=== PATIENT | male | born 1955 | race Caucasian/White ===

== ENCOUNTER 2018-11-20 16:45 | Inpatient (IN) | payer OTHER ==
[~2018-11-20] VITALS: Ht 167.6 cm; Wt 59.0 kg
[2018-11-20 16:54] VITALS: BP 210/115
[2018-11-20] MEDS ORDERED: Solu-MEDROL 125mg Inj IVP ONE (17:00)
[2018-11-20] MEDS: Albuterol ud Inhalation HHN SCH ×3 (17:09→17:35)
[2018-11-20] MEDS: Ipratropium 0.02% Inh Soln 2.5ml UD HHN SCH ×3 (17:09→17:35)
[2018-11-20 17:35] LABS: HEMATOCRIT 47.8 % (42.0-52.0); HEMOGLOBIN 16.1 G/DL (14.2-18.0); MEAN CORPUSCULAR VOLUME 105 FL (80-99); PLATELET COUNT 438 K/UL (150-450); RED BLOOD COUNT 4.58 M/UL (4.70-6.10); RED CELL DISTRIBUTION WIDTH 10.7 % (11.6-14.8); WHITE BLOOD COUNT 18.9 K/UL (4.8-10.8)
[2018-11-20 17:38] LABS: LYMPHOCYTES % (AUTO) 13.6 % (20.0-45.0); MONOCYTES % (AUTO) 7.6 % (1.0-10.0); NEUTROPHILS % (AUTO) 75.2 % (45.0-75.0)
[2018-11-20 17:39] LABS: EOSINOPHILS % (AUTO) 1.6 % (0.0-3.0)
--- NOTE | 2018-11-20 17:44 | NUR ---
ED Nurse Note: patient biba from home c/o SOB, pulse ox on room air was 90%, with albuterol tx, patient was still sob, hx of asthma /copd BP elevation noted
[2018-11-20 17:45] LABS: ANION GAP 13 mmol/L (5-15); BLOOD UREA NITROGEN 21 mg/dL (7-18); CALCIUM 9.9 MG/DL (8.5-10.1); CARBON DIOXIDE 26 MMOL/L (21-32); CHLORIDE 100 MMOL/L (98-107); CREATININE 0.9 MG/DL (0.55-1.30); POTASSIUM 3.9 MMOL/L (3.5-5.1); SODIUM 139 MMOL/L (136-145)
--- NOTE | 2018-11-20 17:48 | Diagnostic Imaging Report ---
Indication: Cough Technique: One view of the chest Comparison: none Findings: There is a pneumothorax at the left lung base, 15-20% volume.. There is a 3.7 cm mass in the left midlung. The the right lung is hyperinflated. Pleural and parenchymal scarring is seen at both lung apices. There is upward traction of the pulmonary galina bilaterally. The heart size is normal.. Impression: Left basilar pneumothorax, 15-20% volume. Dr. Aaron notified of this critical value finding at the time of interpretation Left midlung mass, neoplasm is suspected COPD Biapical pleural and parenchymal scarring
[2018-11-20 17:50] LABS: ALANINE AMINOTRANSFERASE 28 U/L (12-78); ALBUMIN 4.2 G/DL (3.4-5.0); ALKALINE PHOSPHATASE 98 U/L (46-116); ASPARTATE AMINO TRANSFERASE 18 U/L (15-37); BILIRUBIN,TOTAL 0.1 MG/DL (0.2-1.0)
[2018-11-20] MEDS ORDERED: Norco 5mg/325mg tab ORAL ONE (19:00)
[2018-11-20] MEDS ORDERED: cloNIDine 0.2mg Tab ORAL ONE (19:00)
--- NOTE | 2018-11-20 19:10 | NUR ---
ED Nurse Note: Received Pt and report from day shift. Knowing Pt will admit to Tele. Will prepare the admit papers.
--- NOTE | 2018-11-20 19:13 | NUR ---
ED Nurse Note: urine sent down for ua
[2018-11-20 19:18] LABS: APPEARANCE,URINE CLOUDY; BILIRUBIN, URINE NEGATIVE (NEGATIVE); GLUCOSE, URINE (UA) NEGATIVE (NEGATIVE); KETONES,URINE NEGATIVE (NEGATIVE); LEUKOCYTE ESTERASE ,URINE NEGATIVE (NEGATIVE); NITRITE,URINE NEGATIVE (NEGATIVE); PH,URINE 5 (4.5-8.0); PROTEIN,URINE 3+ (NEGATIVE); UROBILINOGEN,URINE NORMAL MG/DL (0.0-1.0)
[2018-11-20 19:19] LABS: COLOR,URINE YELLOW
--- NOTE | 2018-11-20 19:19 | NUR ---
HAND-OFF: Report given to HUI Daniels.
[2018-11-20 20:30] VITALS: BP 181/111
--- NOTE | 2018-11-20 20:32 | Emergency Room Report ---
History of Present Illness General Chief Complaint: Dyspnea/Respdistress Source: Patient, Family Member, EMS Present Illness HPI Patient is a chronic smoker presents emergency department today complaining acute onset of shortness of breath. Patient states that he developed acute onset shortness breath over last couple days. This occurred after walking up a lot of stairs. Patient complains some mild chest discomfort and left sinus wall. He denies any fever. Denies nausea or vomiting. Symptoms noted to be severe. No other modifying factors. No other associated signs and symptoms. No other complaints were noted. Allergies: Coded Allergies: No Known Allergies (Unverified , 11/20/18) Patient History Past Medical History: asthma Past Surgical History: none Pertinent Family History: none Social History: Reports: smoking Reviewed Nursing Documentation: PMH: Agreed; PSxH: Agreed Nursing Documentation-PMH Hx Asthma: Yes Review of Systems All Other Systems: negative except mentioned in HPI Physical Exam Vital Signs Date Time Temp Pulse Resp B/P (MAP) Pulse Ox O2 Delivery O2 Flow Rate FiO2 11/20/18 16:44 97.5 130 30 210/115 99 Simple Mask 6.0 11/20/18 17:06 21 Sp02 EP Interpretation: reviewed, normal General Appearance: alert, moderate distress Head: atraumatic Eyes: bilateral eye normal inspection ENT: normal ENT inspection, hearing grossly normal, normal voice Neck: normal inspection, full range of motion, supple, no bony tend Respiratory: no retraction, respiratory distress, decreased breath sounds, accessory muscle use Cardiovascular #1: no edema, tachycardia Gastrointestinal: normal inspection, normal bowel sounds, non tender, soft, no guarding, no hernia Genitourinary: no CVA tenderness Musculoskeletal: normal inspection, back normal, normal range of motion Neurologic: normal inspection, alert, responsive, speech normal Psychiatric: normal inspection, judgement/insight normal, anxious Skin: normal inspection, normal color, no rash Procedures Critical Care Time Critical Care Time Patient had a critical medical condition which untreated could potentially result in life or limb threatening injury. Total critical care time excluding procedures was approximately 45 minutes. Medical Decision Making Diagnostic Impression: Primary Impression: Respiratory distress Additional Impressions: Pneumothorax Lung mass COPD (chronic obstructive pulmonary disease) ER Course Patient presents emergency department today complaining of shortness of breath. Differential diagnoses include acute pneumonia, CHF, acute coronary syndrome, pneumothorax, asthma, COPD flare, just to name a few.Given the severity of the patient's presentation I felt this is a highly complex patient. This patient required extensive workup. Patient presented with severe shortness of breath it was given albuterol Atrovent with significant improvement symptoms. Patient was also given Solu-Medrol. Patient had chest x-ray obtained chest ray shows evidence of pneumothorax. However the pneumothorax appears to be left side and more towards diaphragm. There is also an associated mass. This suggests that this is atypical pneumothorax. The pneumothorax does not show any evidence of tension pneumothorax and given the patient has had symptoms for a couple days could be a day or 2 old. Therefore I elected not to place a chest tube at this time. Instead to monitor the patient. Chest x-ray obtained a few hours later showed pneumothorax to be stable. Therefore I felt the patient be admitted to the hospital further treatment. Case was discussed in detail with Dr. Berman and Dr. Bullock. Patient be admitted to telemetry for further treatment. Labs Test 11/20/18 17:05 11/20/18 19:00 White Blood Count 18.9 K/UL (4.8-10.8) Red Blood Count 4.58 M/UL (4.70-6.10) Hemoglobin 16.1 G/DL (14.2-18.0) Hematocrit 47.8 % (42.0-52.0) Mean Corpuscular Volume 105 FL (80-99) Mean Corpuscular Hemoglobin 35.2 PG (27.0-31.0) Mean Corpuscular Hemoglobin Concent 33.7 G/DL (32.0-36.0) Red Cell Distribution Width 10.7 % (11.6-14.8) Platelet Count 438 K/UL (150-450) Mean Platelet Volume 5.3 FL (6.5-10.1) Neutrophils (%) (Auto) 75.2 % (45.0-75.0) Lymphocytes (%) (Auto) 13.6 % (20.0-45.0) Monocytes (%) (Auto) 7.6 % (1.0-10.0) Eosinophils (%) (Auto) 1.6 % (0.0-3.0) Basophils (%) (Auto) 2.0 % (0.0-2.0) Sodium Level 139 MMOL/L (136-145) Potassium Level 3.9 MMOL/L (3.5-5.1) Chloride Level 100 MMOL/L (98-107) Carbon Dioxide Level 26 MMOL/L (21-32) Anion Gap 13 mmol/L (5-15) Blood Urea Nitrogen 21 mg/dL (7-18) Creatinine 0.9 MG/DL (0.55-1.30) Estimat Glomerular Filtration Rate > 60 mL/min (>60) Glucose Level 139 MG/DL (74-106) Calcium Level 9.9 MG/DL (8.5-10.1) Total Bilirubin 0.1 MG/DL (0.2-1.0) Aspartate Amino Transf (AST/SGOT) 18 U/L (15-37) Alanine Aminotransferase (ALT/SGPT) 28 U/L (12-78) Alkaline Phosphatase 98 U/L (46-116) Troponin I 0.000 ng/mL (0.000-0.056) Total Protein 8.5 G/DL (6.4-8.2) Albumin 4.2 G/DL (3.4-5.0) Globulin 4.3 g/dL Albumin/Globulin Ratio 1.0 (1.0-2.7) Urine Color Yellow Urine Appearance Cloudy Urine pH 5 (4.5-8.0) Urine Specific [place] 1.025 (1.005-1.035) Urine Protein 3+ (NEGATIVE) Urine Glucose (UA) Negative (NEGATIVE) Urine Ketones Negative (NEGATIVE) Urine Blood 3+ (NEGATIVE) Urine Nitrite Negative (NEGATIVE) Urine Bilirubin Negative (NEGATIVE) Urine Urobilinogen Normal MG/DL (0.0-1.0) Urine Leukocyte Esterase Negative (NEGATIVE) Urine RBC Tntc /HPF (0 - 0) Urine WBC 5-10 /HPF (0 - 0) Urine Squamous Epithelial Cells None /LPF (NONE/OCC) Urine Bacteria Few /HPF (NONE) Urine Sperm Moderate /LPF (NONE) EKG Diagnostic Results Rate: tachycardiac Rhythm: NSR ST Segments: no acute changes Rhythm Strip Diag. Results EP Interpretation: yes Rate: 146 Rhythm: NSR, no PVC's, no ectopy Chest X-Ray Diagnostic Results Chest X-Ray Diagnostic Results : Chest X-Ray Ordered: Yes # of Views/Limited/Complete: 1 View Indication: Shortness of Breath EP Interpretation: No Impression: Other - Pneumothorax, lung mass Last Vital Signs Date Time Temp Pulse Resp B/P (MAP) Pulse Ox O2 Delivery O2 Flow Rate FiO2 11/20/18 19:07 181/111 11/20/18 18:57 142 32 Room Air 6.0 21 11/20/18 17:56 98 11/20/18 16:54 97.5 Status: improved Disposition: ADMITTED INPATIENT Condition: Serious Referrals: [facility],REFERRING (PCP) Yuan Aaron MD Nov 20, 2018 20:32
[2018-11-20] MEDS ORDERED: Morphine Sulfate 4mg/ml Inj (IV/IM USE ONLY) IVP PRN (21:00)
[2018-11-20] MEDS ORDERED: Nitroglycerin Subl 0.4mg tab SL PRN (21:00)
[2018-11-20] MEDS ORDERED: LORazepam Inj 2mg/ml 1ml IV PRN (21:00)
--- NOTE | 2018-11-20 21:05 | NUR ---
ED Nurse Note: Admit Pt to Tele room 209-1. Pt is AO x 4times, VSS, on room air no distress. Belongings and skin check with floor RN. Report given to HUI Alcocer.
--- NOTE | 2018-11-20 21:28 | NUR ---
NURSE NOTES: NEW ADMISSION. recvd pt from ER at 21:15. Adm Dr: Kobe, Adm Dx: Resp Distress, COPD. Pt was placed on cardiac monitoring upon arrival, NC placed on pt @ 2L. Admitting orders entered by Dr Berman. Pt is AOX4, NC @ 2L with no sign of sob or resp distress. Full physical assessment completed. Skin is intact. Pt ambulates to restroom, steady gait. Left AC 20g is c/d/i and patent. Oriented pt to room. BP is trending down . Will continue with plan of care.
[2018-11-20 21:36] VITALS: BP 155/101
[2018-11-20] MEDS ORDERED: Piperacillin/Tazobactam 2.25 GM in D5W 55 ML IV SCH (22:00)
[2018-11-20] MEDS: Zosyn 3.375gm q8h **Extended infusion IVPB SCH ×2 (23:10)
[2018-11-20] MEDS: Theophylline ER 100mg ORAL SCH (23:10)
[2018-11-20] MEDS: Heparin 5000 units/ml inj SUBQ SCH (23:12)
[2018-11-20] MEDS: Albuterol/Ipratropium 3ml neb HHN PRN (23:35)
[2018-11-21] VITALS: BP 135/90
[2018-11-21] MEDS: Solu-MEDROL 125mg Inj IV SCH ×4 (00:33→18:07)
[2018-11-21] MEDS: Ketorolac 30mg Inj IV PRN ×2 (03:47→11:45)
[2018-11-21 04:58] VITALS: BP 139/80
[2018-11-21] MEDS: Zosyn 3.375gm q8h **Extended infusion IVPB SCH ×6 (05:38→21:45)
[2018-11-21 08:00] VITALS: BP 124/94
--- NOTE | 2018-11-21 08:17 | NUR ---
NURSE NOTES: Pt in bed in low position, HOB in high fowlers, IV running abx, IV asymptomatic, pt denies pain, pt requesting breathing tx RT called Jayce, breakfast at bedside, pt ate all of breakfast, pt Ox4, calm and cooperative, pt ambulated to restroom with steady gait, pt makes needs known, no s/s of distress or sob noted. call light at bedside.
[2018-11-21] MEDS: Theophylline ER 100mg ORAL SCH ×2 (09:40→21:46)
[2018-11-21] MEDS: Heparin 5000 units/ml inj SUBQ SCH ×2 (09:42→21:00)
--- NOTE | 2018-11-21 11:01 | NUR ---
NO INSURANCE INFORMATION ON THE BAR UNABLE TO FAX CLINICALS AND REVIEWS
--- NOTE | 2018-11-21 11:04 | NUR ---
CASE MANAGEMENT:REVIEW 63 YR OLD MALE BIBA FROM HOME CC; SOB SI: RESP DISTRESS. COPD. PNEUMOTHORAX 97.5 130 30 210/115 90% ON RA WBC+18.9 IS: PLACED ON MASK 6L/O2 DUONEB HHN Q15 MIN IV SOLUMEDROL CXR BLOOD CX : TO TELEMETRY UNIT INTERQUAL CRITERIA MET
[2018-11-21] MEDS: Promethazine/Codeine 5ml UD ORAL PRN (11:44)
--- NOTE | 2018-11-21 11:45 | Diagnostic Imaging Report ---
Indication: Cough Comparison: 11/20/2018 A single view chest radiograph was obtained. Findings: Rounded density in the left midlung noted suspicious for neoplasm. Left basilar pneumothorax appears slightly improved since the previous examination performed only 2 hours earlier. The lungs are hyperexpanded. Bones are osteopenic. There is scarring at both lung apices. IMPRESSION: Left basilar pneumothorax with some interval improvement. Follow-up is recommended. Other findings unchanged
--- NOTE | 2018-11-21 11:57 | Consultation ---
History of Present Illness General Date patient seen: Nov 21, 2018 Chief Complaint: Dyspnea/Respdistress Present Illness Allergies: Coded Allergies: No Known Allergies (Unverified , 11/20/18) Patient History Healthcare decision maker Resuscitation status Full Code Advanced Directive on File No Physical Exam General Appearance: cachetic Lines, tubes and drains: peripheral HEENT: normocephalic, atraumatic Neck: non-tender, normal alignment Respiratory/Chest: chest wall non-tender, lungs clear Breasts: no masses Cardiovascular/Chest: normal peripheral pulses Abdomen: normal bowel sounds Last 24 Hour Vital Signs Date Time Temp Pulse Resp B/P (MAP) Pulse Ox O2 Delivery O2 Flow Rate FiO2 11/21/18 11:09 Nasal Cannula 2.0 28 11/21/18 08:20 Nasal Cannula 2.0 11/21/18 08:00 97.3 119 20 124/94 (104) 91 11/21/18 07:43 127 11/21/18 04:58 97.7 100 19 139/80 (99) 92 11/21/18 04:17 96.6 11/21/18 04:00 112 11/21/18 00:00 114 11/21/18 00:00 96.6 103 19 135/90 (105) 95 11/20/18 23:39 114 24 97 Nasal Cannula 2.0 28 11/20/18 23:36 97 Nasal Cannula 2.0 28 11/20/18 23:30 118 24 97 Nasal Cannula 2.0 28 11/20/18 21:36 97.4 122 19 155/101 (119) 96 11/20/18 21:34 Nasal Cannula 2.0 11/20/18 21:00 97.6 116 20 181/111 96 Nasal Cannula 3.0 21 11/20/18 20:30 97.6 116 20 181/111 96 Nasal Cannula 3.0 11/20/18 19:07 181/111 11/20/18 18:57 142 32 Room Air 6.0 21 11/20/18 17:56 142 26 98 Room Air 21 11/20/18 17:35 131 26 97 Room Air 21 11/20/18 17:35 21 11/20/18 17:33 133 26 97 Room Air 21 11/20/18 17:21 21 11/20/18 17:21 135 25 96 Room Air 21 11/20/18 17:17 128 25 97 Room Air 21 11/20/18 17:09 130 30 Room Air 21 11/20/18 17:06 130 30 97 Room Air 21 11/20/18 17:06 21 11/20/18 16:54 97.5 139 30 210/115 99 Simple Mask 6.0 11/20/18 16:44 97.5 130 30 210/115 99 Simple Mask 6.0 Intake and Output 11/20/18 11/21/18 19:00 07:00 # Voids 1 Laboratory Tests Test 11/20/18 17:05 11/20/18 19:00 White Blood Count 18.9 K/UL (4.8-10.8) H Red Blood Count 4.58 M/UL (4.70-6.10) L Hemoglobin 16.1 G/DL (14.2-18.0) Hematocrit 47.8 % (42.0-52.0) Mean Corpuscular Volume 105 FL (80-99) H Mean Corpuscular Hemoglobin 35.2 PG (27.0-31.0) H Mean Corpuscular Hemoglobin Concent 33.7 G/DL (32.0-36.0) Red Cell Distribution Width 10.7 % (11.6-14.8) L Platelet Count 438 K/UL (150-450) Mean Platelet Volume 5.3 FL (6.5-10.1) L Neutrophils (%) (Auto) 75.2 % (45.0-75.0) H Lymphocytes (%) (Auto) 13.6 % (20.0-45.0) L Monocytes (%) (Auto) 7.6 % (1.0-10.0) Eosinophils (%) (Auto) 1.6 % (0.0-3.0) Basophils (%) (Auto) 2.0 % (0.0-2.0) Sodium Level 139 MMOL/L (136-145) Potassium Level 3.9 MMOL/L (3.5-5.1) Chloride Level 100 MMOL/L (98-107) Carbon Dioxide Level 26 MMOL/L (21-32) Anion Gap 13 mmol/L (5-15) Blood Urea Nitrogen 21 mg/dL (7-18) H Creatinine 0.9 MG/DL (0.55-1.30) Estimat Glomerular Filtration Rate > 60 mL/min (>60) Glucose Level 139 MG/DL (74-106) H Calcium Level 9.9 MG/DL (8.5-10.1) Total Bilirubin 0.1 MG/DL (0.2-1.0) L Aspartate Amino Transf (AST/SGOT) 18 U/L (15-37) Alanine Aminotransferase (ALT/SGPT) 28 U/L (12-78) Alkaline Phosphatase 98 U/L (46-116) Troponin I 0.000 ng/mL (0.000-0.056) Total Protein 8.5 G/DL (6.4-8.2) H Albumin 4.2 G/DL (3.4-5.0) Globulin 4.3 g/dL Albumin/Globulin Ratio 1.0 (1.0-2.7) Urine Color Yellow Urine Appearance Cloudy Urine pH 5 (4.5-8.0) Urine Specific [place] 1.025 (1.005-1.035) Urine Protein 3+ (NEGATIVE) H Urine Glucose (UA) Negative (NEGATIVE) Urine Ketones Negative (NEGATIVE) Urine Blood 3+ (NEGATIVE) H Urine Nitrite Negative (NEGATIVE) Urine Bilirubin Negative (NEGATIVE) Urine Urobilinogen Normal MG/DL (0.0-1.0) Urine Leukocyte Esterase Negative (NEGATIVE) Urine RBC Tntc /HPF (0 - 0) H Urine WBC 5-10 /HPF (0 - 0) H Urine Squamous Epithelial Cells None /LPF (NONE/OCC) Urine Bacteria Few /HPF (NONE) Urine Sperm Moderate /LPF (NONE) Height (Feet): 5 Height (Inches): 6.00 Weight (Pounds): 126 Medications Current Medications Medications (Trade) Dose Ordered Sig/Charis Route PRN Reason Start Time Stop Time Status Last Admin Dose Admin Albuterol/ Ipratropium (Albuterol/ Ipratropium) 3 ml Q4H PRN HHN dyspnea 11/20/18 21:00 11/25/18 20:59 11/20/18 23:35 Dextrose (Dextrose 50%) 25 ml Q30M PRN IV Hypoglycemia 11/20/18 21:00 12/20/18 20:59 Dextrose (Dextrose 50%) 50 ml Q30M PRN IV Hypoglycemia 11/20/18 21:00 12/20/18 20:59 Heparin Sodium (Porcine) (Heparin 5000 units/ml) 5,000 units EVERY 12 HOURS SUBQ 11/20/18 21:00 12/20/18 20:59 11/21/18 09:42 Ketorolac Tromethamine (Toradol 30mg) 30 mg Q8H PRN IV Moderate Pain (Pain Scale 4-6) 11/20/18 21:00 11/25/18 20:59 11/21/18 11:45 Lorazepam (Ativan 2mg/ml 1ml) 0.5 mg Q4H PRN IV For Anxiety 11/20/18 21:00 11/27/18 20:59 Methylprednisolone Sodium Succinate (Solu-MEDROL) 60 mg EVERY 6 HOURS IV 11/21/18 00:00 12/21/18 00:00 11/21/18 11:45 Morphine Sulfate (Morphine Sulfate) 2 mg Q4H PRN IVP Severe Pain (Pain Scale 7-10) 11/20/18 21:00 11/27/18 20:59 Nitroglycerin (Ntg) 0.4 mg Q5MIN X 3 DOSES PRN SL Prn Chest Pain 11/20/18 21:00 12/20/18 20:59 Ondansetron HCl (Zofran) 4 mg Q6H PRN IVP Nausea & Vomiting 11/20/18 21:00 12/20/18 20:59 11/21/18 11:45 Piperacillin Sod/ Tazobactam Sod 3.375 gm/Sodium Chloride 110 ml @ 27.5 mls/hr EVERY 8 HOURS IVPB 11/20/18 22:00 11/25/18 21:59 11/21/18 05:38 Promethazine HCl/ Codeine (Phenergan with Codeine) 5 ml Q6H PRN ORAL cough 11/20/18 21:00 12/20/18 20:59 11/21/18 11:44 Temazepam (Restoril) 15 mg HSPRN PRN ORAL Insomnia 11/20/18 21:00 11/27/18 20:59 Theophylline (Abelardo-Dur) 100 mg EVERY 12 HOURS ORAL 11/20/18 21:00 12/20/18 20:59 11/21/18 09:40 Assessment/Plan Problem List: (1) Acute respiratory failure ICD Codes: J96.00 - Acute respiratory failure, unspecified whether with hypoxia or hypercapnia SNOMED: 24947835 (2) COPD (chronic obstructive pulmonary disease) ICD Codes: J44.9 - Chronic obstructive pulmonary disease, unspecified SNOMED: 06017717 (3) Pneumothorax ICD Codes: J93.9 - Pneumothorax, unspecified SNOMED: 80372608 (4) Lung mass ICD Codes: R91.8 - Other nonspecific abnormal finding of lung field SNOMED: 818317474 Assessment/Plan CT chest respiratory treatment check electrolytes surgeon called, Dr. Turner short course of abx. Dov Berman MD Nov 21, 2018 11:57
[2018-11-21 12:00] VITALS: BP 175/106
[2018-11-21] MEDS ORDERED: Isovue-300 100ml vial INJ PRN (12:00)
--- NOTE | 2018-11-21 12:22 | Consultation ---
History of Present Illness General Date patient seen: Nov 21, 2018 Chief Complaint: Dyspnea/Respdistress Reason for Consultation: left ptx Present Illness HPI 63 year old male presented to ED with complaints of progressive SOB over a few days. States heavy smoker with >40pack year history recently had URI and was smoking during this time. Walking up flight of stairs and noted some SOB. came to ED for evaluation. In ED noted to have left basilar PTX. Patient admitted for evaluation and care. Surgery called to evaluate for left pneumothorax. patient seen, chart reviewed, patient examined. doing well. SOB improving. no n/v/f/c. labs noted. CXR reviewed. Allergies: Coded Allergies: No Known Allergies (Unverified , 11/20/18) Patient History History Provided By: Patient, Medical Record, PMD Healthcare decision maker Resuscitation status Full Code Advanced Directive on File No Past Medical/Surgical History Past Medical/Surgical History: (1) SOB (shortness of breath) (2) COPD (chronic obstructive pulmonary disease) (3) Pneumothorax (4) Respiratory distress (5) Lung mass (6) Acute respiratory failure Review of Systems All Other Systems: negative except mentioned in HPI Physical Exam General Appearance: no apparent distress, alert Lines, tubes and drains: peripheral HEENT: mucous membranes moist Neck: normal inspection Respiratory/Chest: lungs clear, no respiratory distress, no accessory muscle use Cardiovascular/Chest: normal rate, regular rhythm Abdomen: normal bowel sounds, non tender, soft, no organomegaly, no mass Extremities: non-tender, normal inspection Skin Exam: warm/dry Neurologic: alert, oriented x 3 Last 24 Hour Vital Signs Date Time Temp Pulse Resp B/P (MAP) Pulse Ox O2 Delivery O2 Flow Rate FiO2 11/21/18 11:09 Nasal Cannula 2.0 28 11/21/18 08:20 Nasal Cannula 2.0 11/21/18 08:00 97.3 119 20 124/94 (104) 91 11/21/18 07:43 127 11/21/18 04:58 97.7 100 19 139/80 (99) 92 11/21/18 04:17 96.6 11/21/18 04:00 112 11/21/18 00:00 114 11/21/18 00:00 96.6 103 19 135/90 (105) 95 11/20/18 23:39 114 24 97 Nasal Cannula 2.0 28 11/20/18 23:36 97 Nasal Cannula 2.0 28 11/20/18 23:30 118 24 97 Nasal Cannula 2.0 28 11/20/18 21:36 97.4 122 19 155/101 (119) 96 11/20/18 21:34 Nasal Cannula 2.0 11/20/18 21:00 97.6 116 20 181/111 96 Nasal Cannula 3.0 11/20/18 20:30 97.6 116 20 181/111 96 Nasal Cannula 3.0 11/20/18 19:07 181/111 11/20/18 18:57 142 32 Room Air 6.0 11/20/18 17:56 142 26 98 Room Air 21 11/20/18 17:35 131 26 97 Room Air 11/20/18 17:35 21 11/20/18 17:33 133 26 97 Room Air 11/20/18 17:21 21 11/20/18 17:21 135 25 96 Room Air 11/20/18 17:17 128 25 97 Room Air 11/20/18 17:09 130 30 Room Air 11/20/18 17:06 130 30 97 Room Air 11/20/18 17:06 21 11/20/18 16:54 97.5 139 30 210/115 99 Simple Mask 6.0 11/20/18 16:44 97.5 130 30 210/115 99 Simple Mask 6.0 Intake and Output 11/20/18 11/21/18 19:00 07:00 # Voids 1 Laboratory Tests Test 11/20/18 17:05 11/20/18 19:00 White Blood Count 18.9 K/UL (4.8-10.8) H Red Blood Count 4.58 M/UL (4.70-6.10) L Hemoglobin 16.1 G/DL (14.2-18.0) Hematocrit 47.8 % (42.0-52.0) Mean Corpuscular Volume 105 FL (80-99) H Mean Corpuscular Hemoglobin 35.2 PG (27.0-31.0) H Mean Corpuscular Hemoglobin Concent 33.7 G/DL (32.0-36.0) Red Cell Distribution Width 10.7 % (11.6-14.8) L Platelet Count 438 K/UL (150-450) Mean Platelet Volume 5.3 FL (6.5-10.1) L Neutrophils (%) (Auto) 75.2 % (45.0-75.0) H Lymphocytes (%) (Auto) 13.6 % (20.0-45.0) L Monocytes (%) (Auto) 7.6 % (1.0-10.0) Eosinophils (%) (Auto) 1.6 % (0.0-3.0) Basophils (%) (Auto) 2.0 % (0.0-2.0) Sodium Level 139 MMOL/L (136-145) Potassium Level 3.9 MMOL/L (3.5-5.1) Chloride Level 100 MMOL/L (98-107) Carbon Dioxide Level 26 MMOL/L (21-32) Anion Gap 13 mmol/L (5-15) Blood Urea Nitrogen 21 mg/dL (7-18) H Creatinine 0.9 MG/DL (0.55-1.30) Estimat Glomerular Filtration Rate > 60 mL/min (>60) Glucose Level 139 MG/DL (74-106) H Calcium Level 9.9 MG/DL (8.5-10.1) Total Bilirubin 0.1 MG/DL (0.2-1.0) L Aspartate Amino Transf (AST/SGOT) 18 U/L (15-37) Alanine Aminotransferase (ALT/SGPT) 28 U/L (12-78) Alkaline Phosphatase 98 U/L (46-116) Troponin I 0.000 ng/mL (0.000-0.056) Total Protein 8.5 G/DL (6.4-8.2) H Albumin 4.2 G/DL (3.4-5.0) Globulin 4.3 g/dL Albumin/Globulin Ratio 1.0 (1.0-2.7) Urine Color Yellow Urine Appearance Cloudy Urine pH 5 (4.5-8.0) Urine Specific [place] 1.025 (1.005-1.035) Urine Protein 3+ (NEGATIVE) H Urine Glucose (UA) Negative (NEGATIVE) Urine Ketones Negative (NEGATIVE) Urine Blood 3+ (NEGATIVE) H Urine Nitrite Negative (NEGATIVE) Urine Bilirubin Negative (NEGATIVE) Urine Urobilinogen Normal MG/DL (0.0-1.0) Urine Leukocyte Esterase Negative (NEGATIVE) Urine RBC Tntc /HPF (0 - 0) H Urine WBC 5-10 /HPF (0 - 0) H Urine Squamous Epithelial Cells None /LPF (NONE/OCC) Urine Bacteria Few /HPF (NONE) Urine Sperm Moderate /LPF (NONE) Height (Feet): 5 Height (Inches): 6.00 Weight (Pounds): 126 Medications Current Medications Medications (Trade) Dose Ordered Sig/Charis Route PRN Reason Start Time Stop Time Status Last Admin Dose Admin Albuterol/ Ipratropium (Albuterol/ Ipratropium) 3 ml Q4H PRN HHN dyspnea 11/20/18 21:00 11/25/18 20:59 11/20/18 23:35 Dextrose (Dextrose 50%) 25 ml Q30M PRN IV Hypoglycemia 11/20/18 21:00 12/20/18 20:59 Dextrose (Dextrose 50%) 50 ml Q30M PRN IV Hypoglycemia 11/20/18 21:00 12/20/18 20:59 Heparin Sodium (Porcine) (Heparin 5000 units/ml) 5,000 units EVERY 12 HOURS SUBQ 11/20/18 21:00 12/20/18 20:59 11/21/18 09:42 Iopamidol (Isovue-300 100ml) 100 ml NOW PRN INJ Radiology Procedure 11/21/18 12:00 11/23/18 11:53 Ketorolac Tromethamine (Toradol 30mg) 30 mg Q8H PRN IV Moderate Pain (Pain Scale 4-6) 11/20/18 21:00 11/25/18 20:59 11/21/18 11:45 Lorazepam (Ativan 2mg/ml 1ml) 0.5 mg Q4H PRN IV For Anxiety 11/20/18 21:00 11/27/18 20:59 Methylprednisolone Sodium Succinate (Solu-MEDROL) 60 mg EVERY 6 HOURS IV 11/21/18 00:00 12/21/18 00:00 11/21/18 11:45 Morphine Sulfate (Morphine Sulfate) 2 mg Q4H PRN IVP Severe Pain (Pain Scale 7-10) 11/20/18 21:00 11/27/18 20:59 Nitroglycerin (Ntg) 0.4 mg Q5MIN X 3 DOSES PRN SL Prn Chest Pain 11/20/18 21:00 12/20/18 20:59 Ondansetron HCl (Zofran) 4 mg Q6H PRN IVP Nausea & Vomiting 11/20/18 21:00 12/20/18 20:59 11/21/18 11:45 Piperacillin Sod/ Tazobactam Sod 3.375 gm/Sodium Chloride 110 ml @ 27.5 mls/hr EVERY 8 HOURS IVPB 11/20/18 22:00 11/25/18 21:59 11/21/18 05:38 Promethazine HCl/ Codeine (Phenergan with Codeine) 5 ml Q6H PRN ORAL cough 11/20/18 21:00 12/20/18 20:59 11/21/18 11:44 Temazepam (Restoril) 15 mg HSPRN PRN ORAL Insomnia 11/20/18 21:00 11/27/18 20:59 Theophylline (Abelardo-Dur) 100 mg EVERY 12 HOURS ORAL 11/20/18 21:00 12/20/18 20:59 11/21/18 09:40 Assessment/Plan Problem List: (1) Pneumothorax Assessment & Plan: left basilar PTX noted on admission Repeat CXR with slight improvement clinically stable without distress -supplemental O2 -CT chest -will follow with recs hold on tube placement for now given clinical improvement. thank you ICD Codes: J93.9 - Pneumothorax, unspecified SNOMED: 21311018 Status: stable AnthonynathanEliel Nov 21, 2018 12:22
--- NOTE | 2018-11-21 15:36 | Diagnostic Imaging Report ---
Indication: Pneumothorax follow-up Comparison: 11/20/2018 A single view chest radiograph was obtained. Findings: There is a moderate left pneumothorax which appears slightly increased in size compared to the previous day. IMPRESSION: Moderate left pneumothorax increased in size since yesterday. Results discussed with Dr. Rui Bullock at 3:30 PM 11/21/2018
--- NOTE | 2018-11-21 15:55 | Diagnostic Imaging Report ---
Indication: Chest pain. Pulmonary mass. Pneumothorax Technique: Continuous helical transaxial imaging of the chest was obtained from the thoracic inlet to the upper abdomen after intravenous nonionic contrast administration. Coronal 2-D reformats were also obtained. Automatic Exposure Control was utilized. Total Dose length Product (DLP): 523.[address] Dose Index Volume (CTDIvol): 12.56 mGy Comparison: Chest x-ray 11/20/2018 Findings: There is a 30-40% sized left pneumothorax demonstrated. In the posterior part of the left lower lobe likely in the superior segment there is a spiculated mass measuring 3.5 cm suspicious for bronchogenic carcinoma. There is evidence of extensive emphysema with areas of a less than bulla formation bilaterally. Hyperlucency noted within the lungs. There is extensive scarring in the upper lobes which show confluent densities with associated biapical pleural thickening involving both visceral and parietal pleura. The diaphragmatic contour is smooth and symmetric. There is a dilatation of the fluid-filled esophagus. The visualized part of the upper abdomen is unremarkable. IMPRESSION: Left pneumothorax. By serial chest x-ray, the pneumothorax has increased in size over the last 24 hours. 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 Pulmonary emphysema/COPD. Pleural and parenchymal scarring in the upper lobes. Mildly distended esophagus. Consider dysmotility or other pathology. Consider EGD. Critical value communications. The findings were conveyed via telephone to Dr. Rui Bullock at 3:30 pm, 11/21/2018. The CT scanner at [facility] is accredited by the [employer] and the scans are performed using dose optimization techniques as appropriate to a performed exam including Automatic Exposure control.
[2018-11-21 16:00] VITALS: BP 162/131
--- NOTE | 2018-11-21 16:25 | History & Physical ---
History and Physical History & Physicial Sukhjinder Blulock MD Nov 21, 2018 16:25
--- NOTE | 2018-11-21 17:02 | NUR ---
NURSE NOTES: made aware of CT results
--- NOTE | 2018-11-21 17:57 | Cardiology Report ---
APPROVED REPORT EKG Measurement Heart [id number] Sinus tachycardia Biatrial enlargement Abnormal ECG
--- NOTE | 2018-11-21 19:34 | NUR ---
HAND-OFF: Report given to Carlyn Sauer.
[2018-11-21 20:00] VITALS: BP 163/95
[2018-11-21] MEDS: Albuterol/Ipratropium 3ml neb HHN PRN (20:14)
--- NOTE | 2018-11-21 20:17 | NUR ---
NURSE NOTES: Pt in visible distress without nasal cannula on, pt had just returned from using the restroom. Dr Nagy at bedside, states he wants cxr tomorrow morning and chest tube placement in morning. chest CT confirms increasing pneumothorax on left side with 3.5cm mass. pt is AOX4. Pt sat 93% on NC @ 2L. Requested pt remain in bed to prevent sob on exertion, pt verbalized understanding. Will continue with plan of care.
--- NOTE | 2018-11-21 20:39 | NUR ---
NURSE NOTES: Per Dr Nagy, if pt condition worsen overnight call ER to insert chest tube at bedside. chest tube kit and equipment for insertion placed near bedside.
--- NOTE | 2018-11-21 21:30 | History and Physical Report ---
DATE OF ADMISSION: 11/20/2018 CHIEF COMPLAINT: Sudden shortness of breath. HISTORY OF PRESENT ILLNESS: This is a 63-year-old gentleman with past medical history significant for chronic obstructive pulmonary disease with chronic smoking, who was presented to the emergency room with complaints of sudden shortness of breath. The patient developed acute shortness of breath over the last couple of days, progressively worsening and after walking up the stairs. The patient has some mild chest discomfort. Denies any fever or chills. Denies any nausea or vomiting. Shortly after initial evaluation in the emergency, the patient was noted to have lung mass as well as pneumothorax, left-sided pneumothorax and subsequently the patient was admitted to the hospital for acute shortness of breath, most likely respiratory distress with lung mass and pneumothorax. PAST MEDICAL HISTORY AND PAST SURGICAL HISTORY: As above, history of chronic smoker with COPD. MEDICATIONS AT HOME: Significant for none. ALLERGIES: No known drug allergies. SOCIAL HISTORY: The patient is a chronic smoker, one pack of cigarettes a day. Denies any substance. Occasional alcohol use. FAMILY HISTORY: Noncontributory. REVIEW OF SYSTEMS: Mostly as above. Denies any dysuria, frequency, or hematuria. Denies any hemoptysis or hematochezia. Denies any suicidal ideation. Complained about shortness of breath. Denies any loss of consciousness. Denies any fall. LABORATORY AND DIAGNOSTIC DATA: On admission, WBC of 8.9, hemoglobin 16, hematocrit 47, and platelets 438,000. Sodium 139, potassium 3.9, chloride 100, bicarbonate 26, BUN 21, and creatinine 0.6. Troponin is 0.00. AST of 18, ALT of 28. UA is +3 protein, +2 blood tinged rbc's, and 5 to 10 wbc's. The patient had a chest x-ray done, noted to have left basal pneumothorax, 15% to 20% volume and the left mid lung mass neoplasm suspected, COPD, biapical pleura as well as parenchymal scarring. CT scan of the chest was done, confirmed that the patient has left pneumothorax with 3.5 cm mass in the left lower lobe, likely bronchogenic neoplasm, pulmonary emphysema, COPD, pleural and parenchymal scarring in the upper lobe, and mild distended esophagus, consider dysmotility. ASSESSMENT: 1. Severe shortness of breath, most likely secondary to acute left-sided pneumothorax. 2. A 3.5 cm mass in the left upper lobe, likely bronchogenic neoplasm. 3. Chronic smoker with emphysema and chronic obstructive pulmonary disease. 4. Mild distended esophagus. 5. Microhematuria. PLAN: Admit the patient to monitored unit. Discussed case with Dr. Berman, Pulmonary Critical Care and Dr. Justus Zhang from Plastic surgery. We will follow up with laboratory and chest x-ray. Code status is Full Code. Nebulizer treatment. For DVT prophylaxis, SCD. Sukhjinder Christine Bullock DR: CINTHIA JOB#: [id number] CC:
[2018-11-22] VITALS: BP 124/84
[2018-11-22] MEDS: Solu-MEDROL 125mg Inj IV SCH ×5 (01:16→23:37)
[2018-11-22 04:00] VITALS: BP 141/98
[2018-11-22] MEDS: Promethazine/Codeine 5ml UD ORAL PRN (04:21)
[2018-11-22] MEDS: Zosyn 3.375gm q8h **Extended infusion IVPB SCH ×6 (05:34→22:26)
--- NOTE | 2018-11-22 05:47 | Diagnostic Imaging Report ---
EXAM: XR Chest, 1 View CLINICAL HISTORY: pneumothorax TECHNIQUE: Frontal view of the chest. COMPARISON: 11/21/18 FINDINGS: Lungs: Scarring and contraction of the upper lung zones bilaterally, similar to the prior study. Pulmonary emphysema. Pleural space: Moderate to large left pneumothorax with more than 50% loss in volume inferiorly, worse than on prior study. Suspect pleural calcifications. Heart: Unremarkable. No cardiomegaly. Mediastinum: Unremarkable. Bones/joints: Unremarkable. IMPRESSION: Left pneumothorax is larger. Critical Value Communications 11/22/18 06:04 Verify Receipt Verified receipt with HUI Farr on 11/22 06:04 (-08:00)
--- NOTE | 2018-11-22 06:15 | NUR ---
NURSE NOTES: Pt is refusing to sign consent for chest tube. will advise Dr. Nagy. Pt states, "I feel better, I dont need one"
--- NOTE | 2018-11-22 06:26 | NUR ---
NURSE NOTES: Recvd report for cxr: impression states pneumothorax is larger. With 50% loss in volume inferiorly worse then previous study
--- NOTE | 2018-11-22 06:30 | NUR ---
NURSE NOTES: left message for Dr Zhang regarding cxr results and regarding pt refusing chest tube, awaiting new orders.
[2018-11-22 08:00] VITALS: BP 167/99
--- NOTE | 2018-11-22 08:00 | NUR ---
NURSE NOTES: Bedside report received from Kishan AMES. Patient a/o x 4, resting in his bed with open eyes. no c/o pain and SOB at this time. per report: patient strongly recommended to have chest tube d/t worsening pneumothorax.However, patient refused to sign consent for chest tube placement several times. patient reinstructed regarding the benefits of chest tube and the complications that may face base on his condition. patient still refused to have chest tube. call light and frequent used object are with in reach.bed at lowest position, iv intact and patent. 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 will continue to monitor.
[2018-11-22 08:11] LABS: ALANINE AMINOTRANSFERASE 36 U/L (12-78); ALBUMIN 3.7 G/DL (3.4-5.0); ALBUMIN/GLOBULIN RATIO 0.9 (1.0-2.7); ALKALINE PHOSPHATASE 82 U/L (46-116); ANION GAP 13 mmol/L (5-15); ASPARTATE AMINO TRANSFERASE 27 U/L (15-37); BILIRUBIN,TOTAL 0.2 MG/DL (0.2-1.0); BLOOD UREA NITROGEN 25 mg/dL (7-18); CALCIUM 9.5 MG/DL (8.5-10.1); CARBON DIOXIDE 22 MMOL/L (21-32); CHLORIDE 105 MMOL/L (98-107); CREATININE 1.2 MG/DL (0.55-1.30); PHOSPHORUS 3.5 MG/DL (2.5-4.9); SODIUM 140 MMOL/L (136-145)
[2018-11-22] MEDS: Theophylline ER 100mg ORAL SCH ×2 (09:00→22:26)
[2018-11-22] MEDS: Heparin 5000 units/ml inj SUBQ SCH ×2 (09:00→22:28)
[2018-11-22] MEDS ORDERED: Lidocaine 1% 10mg/ml/Epi 0.005mg/ml 30ml vial INJ SCH (11:00)
--- NOTE | 2018-11-22 11:58 | NUR ---
NURSE NOTES: chest tube inserted by Dr. Navarro. patient tolerated well. chest x-ray done state as ordered.
[2018-11-22 12:00] VITALS: BP 124/84
--- NOTE | 2018-11-22 12:12 | Operative Note - PDOC ---
Operative Note Operative Note Date of Operation/Procedure: Nov 22, 2018 Pre-op Diagnosis: left pneumothorax Procedure: left chest tube thoracostomy Post-op Diagnosis: same as pre-op Surgeon: maxwell Anesthesia: local Specimen: none Complications: none Condition: stable Estimated Blood Loss: none Drains: other Implant(s) used?: No Indications for Procedure 63M heavy smoker with left pneumothorax. initially stable but today enlarging. left tube thoracostomy recommended and indicated. consent obtained. Description of Procedure patient made comfortable. time out performed. left chest wall prepped and draped in standard surgical fashion. anatomy identified. left arm elevated. local lidocaine with epi infiltrated. small skin incision made at left anterior /mid axillary line at level of the nipple. using Seldinger technique a 8.5f pigtail catheter was inserted without complication. placed to pleuravac. dressings applied. cxr obtained and tube in good position and lung reinflated. patient tolerated well Eliel Navarro Nov 22, 2018 12:12
--- NOTE | 2018-11-22 12:38 | Diagnostic Imaging Report ---
EXAM: XR Chest, 1 View CLINICAL HISTORY: COUGH TECHNIQUE: Frontal view of the chest. COMPARISON: Chest x-ray dated 11/22/18 at 5:27 AM FINDINGS: Lungs: Mildly increased interstitial markings. The lungs are otherwise clear without focal consolidation. Pleural space: See below. Heart: Unremarkable. No cardiomegaly. Mediastinum: Unremarkable. Bones/joints: Unremarkable. Tubes, lines and devices: Interval placement of a left chest tube with near-complete resolution of the left pneumothorax. IMPRESSION: 1. Interval placement of a left chest tube with near-complete resolution of the left pneumothorax. 2. Mildly increased interstitial markings. This is nonspecific but may suggest pulmonary vascular congestion, interstitial edema, or interstitial pneumonitis. No focal consolidation.
--- NOTE | 2018-11-22 14:07 | Internal Med Progress Note ---
Subjective Physician Name MadisonNba Attending Physician Sukhjinder Bullock MD Current Medications Medications (Trade) Dose Ordered Sig/Charis Route PRN Reason Start Time Stop Time Status Last Admin Dose Admin Albuterol/ Ipratropium (Albuterol/ Ipratropium) 3 ml Q4H PRN HHN dyspnea 11/20/18 21:00 11/25/18 20:59 11/21/18 20:14 Clonidine HCl (Catapres Tab) 0.1 mg Q6H PRN ORAL SBP > 160mmhg 11/21/18 12:30 12/21/18 12:29 11/21/18 13:00 Dextrose (Dextrose 50%) 25 ml Q30M PRN IV Hypoglycemia 11/20/18 21:00 12/20/18 20:59 Dextrose (Dextrose 50%) 50 ml Q30M PRN IV Hypoglycemia 11/20/18 21:00 12/20/18 20:59 Heparin Sodium (Porcine) (Heparin 5000 units/ml) 5,000 units EVERY 12 HOURS SUBQ 11/20/18 21:00 12/20/18 20:59 11/21/18 09:42 Iopamidol (Isovue-300 100ml) 100 ml NOW PRN INJ Radiology Procedure 11/21/18 12:00 11/23/18 11:53 Ketorolac Tromethamine (Toradol 30mg) 30 mg Q8H PRN IV Moderate Pain (Pain Scale 4-6) 11/20/18 21:00 11/25/18 20:59 11/21/18 11:45 Lidocaine/ Epinephrine (Xylocaine 1%/ Epi MPF 30ml) 1 ml ONCE INJ 11/22/18 11:00 11/22/18 23:59 Lorazepam (Ativan 2mg/ml 1ml) 0.5 mg Q4H PRN IV For Anxiety 11/20/18 21:00 11/27/18 20:59 Methylprednisolone Sodium Succinate (Solu-MEDROL) 60 mg EVERY 6 HOURS IV 11/21/18 00:00 12/21/18 00:00 11/22/18 12:16 Morphine Sulfate (Morphine Sulfate) 2 mg Q4H PRN IVP Severe Pain (Pain Scale 7-10) 11/20/18 21:00 11/27/18 20:59 Nitroglycerin (Ntg) 0.4 mg Q5MIN X 3 DOSES PRN SL Prn Chest Pain 11/20/18 21:00 12/20/18 20:59 Ondansetron HCl (Zofran) 4 mg Q6H PRN IVP Nausea & Vomiting 11/20/18 21:00 12/20/18 20:59 11/21/18 11:45 Piperacillin Sod/ Tazobactam Sod 3.375 gm/Sodium Chloride 110 ml @ 27.5 mls/hr EVERY 8 HOURS IVPB 11/20/18 22:00 11/25/18 21:59 11/22/18 13:35 Promethazine HCl/ Codeine (Phenergan with Codeine) 5 ml Q6H PRN ORAL cough 11/20/18 21:00 12/20/18 20:59 11/22/18 04:21 Temazepam (Restoril) 15 mg HSPRN PRN ORAL Insomnia 11/20/18 21:00 11/27/18 20:59 Theophylline (Abelardo-Dur) 100 mg EVERY 12 HOURS ORAL 11/20/18 21:00 12/20/18 20:59 11/22/18 09:00 Allergies: Coded Allergies: No Known Allergies (Unverified , 11/20/18) Objective Last Vital Signs Date Time Temp Pulse Resp B/P (MAP) Pulse Ox O2 Delivery O2 Flow Rate FiO2 11/22/18 12:00 131 11/22/18 12:00 97.9 20 124/84 (97) 94 11/22/18 10:36 Nasal Cannula 4.0 36 Laboratory Tests Test 11/22/18 05:46 Prothrombin Time 10.3 SEC (9.30-11.50) Prothromb Time International Ratio 1.0 (0.9-1.1) Activated Partial Thromboplast Time 27 SEC (23-33) Sodium Level 140 MMOL/L (136-145) Potassium Level 5.0 MMOL/L (3.5-5.1) Chloride Level 105 MMOL/L (98-107) Carbon Dioxide Level 22 MMOL/L (21-32) Anion Gap 13 mmol/L (5-15) Blood Urea Nitrogen 25 mg/dL (7-18) H Creatinine 1.2 MG/DL (0.55-1.30) Estimat Glomerular Filtration Rate > 60 mL/min (>60) Glucose Level 150 MG/DL (74-106) H Calcium Level 9.5 MG/DL (8.5-10.1) Phosphorus Level 3.5 MG/DL (2.5-4.9) Magnesium Level 2.2 MG/DL (1.8-2.4) Total Bilirubin 0.2 MG/DL (0.2-1.0) Aspartate Amino Transf (AST/SGOT) 27 U/L (15-37) Alanine Aminotransferase (ALT/SGPT) 36 U/L (12-78) Alkaline Phosphatase 82 U/L (46-116) Total Protein 7.7 G/DL (6.4-8.2) Albumin 3.7 G/DL (3.4-5.0) Globulin 4.0 g/dL Albumin/Globulin Ratio 0.9 (1.0-2.7) L Microbiology Date/Time Source Procedure Growth Status 11/20/18 17:05 Blood Blood Culture - Preliminary NO GROWTH AFTER 24 HOURS Resulted 11/20/18 17:05 Blood Blood Culture - Preliminary NO GROWTH AFTER 24 HOURS Resulted Intake and Output 11/21/18 11/22/18 19:00 07:00 Intake Total 1440 ml 440 ml Output Total 200 ml Balance 1440 ml 240 ml Intake Oral 1440 ml 440 ml Output Urine Total 200 ml # Voids 4 1 Assessment/Plan Assessment/Plan ASSESSMENT: 1. Severe shortness of breath, most likely secondary to acute left-sided pneumothorax. 2. A 3.5 cm mass in the left upper lobe, likely bronchogenic neoplasm. 3. Chronic smoker with emphysema and chronic obstructive pulmonary disease. 4. Mild distended esophagus. 5. Microhematuria. PLAN: Admit the patient to monitored unit. Discussed case with Dr. Berman, Pulmonary Critical Care and Dr. Justus Zhang from Plastic surgery. We will follow up with laboratory and chest x-ray. Code status is Full Code. Nebulizer treatment. For DVT prophylaxis, SCD. Left chest tube placed 11/22/18-see surgery note. Await throacic surgery consult for left lung mass-Nba Myers MD Nov 22, 2018 14:07
--- NOTE | 2018-11-22 14:41 | General Surgery Progress Note ---
General Surgery-Progress Note Subjective Procedure Performed left chest tube thoracostomy Additional Comments left ptx enlarged. chest tube placed at bedside. Objective Last 24 Hour Vital Signs Date Time Temp Pulse Resp B/P (MAP) Pulse Ox O2 Delivery O2 Flow Rate FiO2 11/22/18 12:00 131 11/22/18 12:00 97.9 108 20 124/84 (97) 94 11/22/18 10:36 120 20 Nasal Cannula 4.0 36 11/22/18 10:36 Nasal Cannula 4.0 36 11/22/18 10:36 93 Nasal Cannula 4.0 36 11/22/18 09:00 Nasal Cannula 2.0 11/22/18 08:00 97.6 127 24 167/99 (121) 94 11/22/18 08:00 123 11/22/18 04:00 98.0 106 22 141/98 (112) 94 11/22/18 04:00 108 11/22/18 00:00 111 11/22/18 00:00 97.8 108 20 124/84 (97) 94 11/21/18 21:00 Nasal Cannula 2.0 11/21/18 20:25 123 22 98 Nasal Cannula 2.0 28 11/21/18 20:15 116 20 Nasal Cannula 2.0 28 11/21/18 20:15 95 Nasal Cannula 2.0 28 11/21/18 20:15 116 20 95 Nasal Cannula 2.0 28 11/21/18 20:15 Nasal Cannula 2.0 28 11/21/18 20:00 97.5 123 20 163/95 (117) 93 11/21/18 20:00 121 11/21/18 16:24 121 11/21/18 16:00 97.5 122 20 162/131 (141) 93 I&O Intake and Output 11/21/18 11/22/18 19:00 07:00 Intake Total 1440 ml 440 ml Output Total 200 ml Balance 1440 ml 240 ml Intake Oral 1440 ml 440 ml Output Urine Total 200 ml # Voids 4 1 Wound: clean Drains: other Cardiovascular: RSR Respiratory: clear, decreased breath sounds Abdomen: soft, other Extremities: no cyanosis Laboratory Tests Test 11/22/18 05:46 Prothrombin Time 10.3 SEC (9.30-11.50) Prothromb Time International Ratio 1.0 (0.9-1.1) Activated Partial Thromboplast Time 27 SEC (23-33) Sodium Level 140 MMOL/L (136-145) Potassium Level 5.0 MMOL/L (3.5-5.1) Chloride Level 105 MMOL/L (98-107) Carbon Dioxide Level 22 MMOL/L (21-32) Anion Gap 13 mmol/L (5-15) Blood Urea Nitrogen 25 mg/dL (7-18) H Creatinine 1.2 MG/DL (0.55-1.30) Estimat Glomerular Filtration Rate > 60 mL/min (>60) Glucose Level 150 MG/DL (74-106) H Calcium Level 9.5 MG/DL (8.5-10.1) Phosphorus Level 3.5 MG/DL (2.5-4.9) Magnesium Level 2.2 MG/DL (1.8-2.4) Total Bilirubin 0.2 MG/DL (0.2-1.0) Aspartate Amino Transf (AST/SGOT) 27 U/L (15-37) Alanine Aminotransferase (ALT/SGPT) 36 U/L (12-78) Alkaline Phosphatase 82 U/L (46-116) Total Protein 7.7 G/DL (6.4-8.2) Albumin 3.7 G/DL (3.4-5.0) Globulin 4.0 g/dL Albumin/Globulin Ratio 0.9 (1.0-2.7) L Plan Problems: (1) Pneumothorax Assessment & Plan: left basilar PTX noted on admission Repeat CXR with slight improvement clinically stable without distress CXR worse today. Chest tube placed at bedside. see note -supplemental O2 -tube to suction vac thank you Eliel Navarro Nov 22, 2018 14:41
[2018-11-22 15:53] VITALS: BP 151/99
--- NOTE | 2018-11-22 19:45 | NUR ---
NURSE NOTES: MINIMAL CHEST TUBE DRAINAGE NOTED. NO C/O SOB, NO C/O PAIN. VITAL SIGNS STABLE. REPORT GIVEN TO JEFFERY AMES
[2018-11-22 20:00] VITALS: BP 167/100
--- NOTE | 2018-11-22 20:00 | NUR ---
Received report from am nurse lizzeth pt had ct insertion no signs of distress pt has minimal drainage noted pt denies pain. pt has ltfa sl ntibiotic but infusing antibiotics and other medication pt toook hs medication without adverse reaction noted.Will continue to monitor. pt is alert and oriented x4 on tele monitor shows nsr will lcontinue to monitor for safety and other needs pt may have .
--- NOTE | 2018-11-22 21:34 | Pulmonology Progress Note ---
Assessment/Plan Problems: (1) Acute respiratory failure (2) COPD (chronic obstructive pulmonary disease) (3) Pneumothorax (4) Lung mass Assessment/Plan surgeon to see biopsy when pt is more stable Subjective ROS Limited/Unobtainable: No Constitutional: Reports: no symptoms HEENT: Repors: no symptoms Allergies: Coded Allergies: No Known Allergies (Unverified , 11/20/18) Objective Last 24 Hour Vital Signs Date Time Temp Pulse Resp B/P (MAP) Pulse Ox O2 Delivery O2 Flow Rate FiO2 11/22/18 16:00 115 11/22/18 15:53 97.6 112 20 151/99 (116) 94 11/22/18 12:00 131 11/22/18 12:00 97.9 108 20 124/84 (97) 94 11/22/18 10:36 120 20 Nasal Cannula 4.0 36 11/22/18 10:36 Nasal Cannula 4.0 36 11/22/18 10:36 93 Nasal Cannula 4.0 36 11/22/18 09:00 Nasal Cannula 2.0 11/22/18 08:00 97.6 127 24 167/99 (121) 94 11/22/18 08:00 123 11/22/18 04:00 98.0 106 22 141/98 (112) 94 11/22/18 04:00 108 11/22/18 00:00 111 11/22/18 00:00 97.8 108 20 124/84 (97) 94 Intake and Output 11/21/18 11/22/18 18:59 06:59 Intake Total 1440 ml 440 ml Output Total 200 ml Balance 1440 ml 240 ml Intake Oral 1440 ml 440 ml Output Urine Total 200 ml # Voids 4 1 General Appearance: no acute distress, cachetic HEENT: atraumatic Cardiovascular: normal peripheral pulses, regularly irregular Genitourinary: normal external genitalia Extremities: no cyanosis Skin: no rash Microbiology Date/Time Source Procedure Growth Status 11/20/18 17:05 Blood Blood Culture - Preliminary NO GROWTH AFTER 24 HOURS Resulted 11/20/18 17:05 Blood Blood Culture - Preliminary NO GROWTH AFTER 24 HOURS Resulted Laboratory Tests 11/22/18 05:46: Prothrombin Time 10.3, Prothromb Time International Ratio 1.0, Activated Partial Thromboplast Time 27, Sodium Level 140, Potassium Level 5.0, Chloride Level 105, Carbon Dioxide Level 22, Anion Gap 13, Blood Urea Nitrogen 25H, Creatinine 1.2, Estimat Glomerular Filtration Rate > 60, Glucose Level 150H, Calcium Level 9.5, Phosphorus Level 3.5, Magnesium Level 2.2, Total Bilirubin 0.2, Aspartate Amino Transf (AST/SGOT) 27, Alanine Aminotransferase (ALT/SGPT) 36, Alkaline Phosphatase 82, Total Protein 7.7, Albumin 3.7, Globulin 4.0, Albumin/Globulin Ratio 0.9L Current Medications Medications (Trade) Dose Ordered Sig/Charis Route PRN Reason Start Time Stop Time Status Last Admin Dose Admin Albuterol/ Ipratropium (Albuterol/ Ipratropium) 3 ml Q4H PRN HHN dyspnea 11/20/18 21:00 11/25/18 20:59 11/21/18 20:14 Clonidine HCl (Catapres Tab) 0.1 mg Q6H PRN ORAL SBP > 160mmhg 11/21/18 12:30 12/21/18 12:29 11/21/18 13:00 Dextrose (Dextrose 50%) 25 ml Q30M PRN IV Hypoglycemia 11/20/18 21:00 12/20/18 20:59 Dextrose (Dextrose 50%) 50 ml Q30M PRN IV Hypoglycemia 11/20/18 21:00 12/20/18 20:59 Heparin Sodium (Porcine) (Heparin 5000 units/ml) 5,000 units EVERY 12 HOURS SUBQ 11/20/18 21:00 12/20/18 20:59 11/21/18 09:42 Iopamidol (Isovue-300 100ml) 100 ml NOW PRN INJ Radiology Procedure 11/21/18 12:00 11/23/18 11:53 Ketorolac Tromethamine (Toradol 30mg) 30 mg Q8H PRN IV Moderate Pain (Pain Scale 4-6) 11/20/18 21:00 11/25/18 20:59 11/21/18 11:45 Lidocaine/ Epinephrine (Xylocaine 1%/ Epi MPF 30ml) 1 ml ONCE INJ 11/22/18 11:00 11/22/18 23:59 Lorazepam (Ativan 2mg/ml 1ml) 0.5 mg Q4H PRN IV For Anxiety 11/20/18 21:00 11/27/18 20:59 Methylprednisolone Sodium Succinate (Solu-MEDROL) 60 mg EVERY 6 HOURS IV 11/21/18 00:00 12/21/18 00:00 11/22/18 17:58 Morphine Sulfate (Morphine Sulfate) 2 mg Q4H PRN IVP Severe Pain (Pain Scale 7-10) 11/20/18 21:00 11/27/18 20:59 Nitroglycerin (Ntg) 0.4 mg Q5MIN X 3 DOSES PRN SL Prn Chest Pain 11/20/18 21:00 12/20/18 20:59 Ondansetron HCl (Zofran) 4 mg Q6H PRN IVP Nausea & Vomiting 11/20/18 21:00 12/20/18 20:59 11/21/18 11:45 Piperacillin Sod/ Tazobactam Sod 3.375 gm/Sodium Chloride 110 ml @ 27.5 mls/hr EVERY 8 HOURS IVPB 11/20/18 22:00 11/25/18 21:59 11/22/18 13:35 Promethazine HCl/ Codeine (Phenergan with Codeine) 5 ml Q6H PRN ORAL cough 11/20/18 21:00 12/20/18 20:59 11/22/18 04:21 Temazepam (Restoril) 15 mg HSPRN PRN ORAL Insomnia 11/20/18 21:00 11/27/18 20:59 Theophylline (Abelardo-Dur) 100 mg EVERY 12 HOURS ORAL 11/20/18 21:00 12/20/18 20:59 11/22/18 09:00 Dov Berman MD Nov 22, 2018 21:34
[2018-11-23] VITALS (7 sets, daily range): BP systolic 113–165; BP diastolic 75–95
--- NOTE | 2018-11-23 | NUR ---
pt is no signs of distressed noted monitor hourly and prn for safety
--- NOTE | 2018-11-23 06:00 | NUR ---
pt ct dressing is dryand intact and pt slept during the niight med given as ordered no adverse reaction noted will continue to monitor
[2018-11-23] MEDS: Zosyn 3.375gm q8h **Extended infusion IVPB SCH ×6 (06:26→21:37)
[2018-11-23] MEDS: Solu-MEDROL 125mg Inj IV SCH ×3 (06:27→16:29)
--- NOTE | 2018-11-23 07:30 | NUR ---
HAND-OFF: Report given to [].
--- NOTE | 2018-11-23 07:37 | NUR ---
NURSE NOTES: Received patient from HUI Lentz. Patient resting in his bed with open eyes. AOx4. no c/o pain and distress at this time. chest tube on with minimal drainage at this time. IV site intact and patent. Bed brakes engaged. call light and frequent used objects are with in reach. pt instructed to use her call light when need help and do not try to get out of bed with no commercial lending assistant for safety reasons.pt verbalized understanding of the given instruction. will continue to monitor.
[2018-11-23] MEDS: Theophylline ER 100mg ORAL SCH ×2 (08:06→21:37)
[2018-11-23] MEDS: Heparin 5000 units/ml inj SUBQ SCH ×2 (08:07→20:37)
--- NOTE | 2018-11-23 08:51 | General Surgery Progress Note ---
General Surgery-Progress Note Subjective Procedure Performed left chest tube thoracostomy Symptoms: improved, tolerating diet, passing flatus Additional Comments respiratory much improved. coughing. no leak on tube. on suction Objective Last 24 Hour Vital Signs Date Time Temp Pulse Resp B/P (MAP) Pulse Ox O2 Delivery O2 Flow Rate FiO2 11/23/18 08:00 98.5 101 20 113/75 (88) 99 11/23/18 04:00 97.6 85 19 152/90 (110) 98 11/23/18 04:00 88 11/23/18 01:23 Nasal Cannula 4.0 36 11/23/18 01:23 98 Nasal Cannula 4.0 36 11/23/18 01:23 83 20 Nasal Cannula 4.0 36 11/23/18 00:00 88 11/23/18 00:00 97.4 96 18 136/80 (98) 99 11/22/18 21:00 Nasal Cannula 2.0 11/22/18 20:00 97.8 83 18 167/100 (122) 98 11/22/18 16:00 115 11/22/18 15:53 97.6 112 20 151/99 (116) 94 11/22/18 12:00 131 11/22/18 12:00 97.9 108 20 124/84 (97) 94 11/22/18 10:36 120 20 Nasal Cannula 4.0 36 11/22/18 10:36 Nasal Cannula 4.0 36 11/22/18 10:36 93 Nasal Cannula 4.0 36 11/22/18 09:00 Nasal Cannula 2.0 I&O Intake and Output 11/22/18 11/23/18 19:00 07:00 Intake Total 1232 ml 500 ml Balance 1232 ml 500 ml Intake Oral 1232 ml 500 ml Wound: clean, dry Drains: other Cardiovascular: RSR Respiratory: clear Abdomen: soft, flat, non-tender, present bowel sounds Extremities: no tenderness, no cyanosis Plan Problems: (1) Pneumothorax Assessment & Plan: left basilar PTX noted on admission Repeat CXR with slight improvement clinically stable without distress s/p chest tube placed at bedside. see note cxr with near complete resolution of ptx cont but on suction AM CXR -supplemental O2 thank you Eliel Navarro Nov 23, 2018 08:51
--- NOTE | 2018-11-23 09:02 | Diagnostic Imaging Report ---
EXAM: XR Chest, 1 View CLINICAL HISTORY: F/U TECHNIQUE: Frontal view of the chest. COMPARISON: Chest x-ray dated 11/22/18 FINDINGS: Lungs: Patchy opacity at periphery of the left midlung region, stable. Moderate prominent perihilar interstitial markings, unchanged. No new focal consolidation. Pleural space: No visible pneumothorax or effusion. Heart: Unremarkable. No cardiomegaly. Mediastinum: Unremarkable. Bones/joints: Unremarkable. Tubes, lines and devices: EKG leads overlie the thorax. Stable positioning of a chest tube on the left. IMPRESSION: No significant interval change compared to the prior chest x-ray.
[2018-11-23 10:36] LABS: HEMATOCRIT 44.7 % (42.0-52.0); HEMOGLOBIN 15.1 G/DL (14.2-18.0); MEAN CORPUSCULAR VOLUME 104 FL (80-99); PLATELET COUNT 417 K/UL (150-450); RED BLOOD COUNT 4.31 M/UL (4.70-6.10)
[2018-11-23 10:40] LABS: WHITE BLOOD COUNT 26.7 K/UL (4.8-10.8)
[2018-11-23 11:04] LABS: ANION GAP 6 mmol/L (5-15); BLOOD UREA NITROGEN 24 mg/dL (7-18); CALCIUM 9.4 MG/DL (8.5-10.1); CARBON DIOXIDE 30 MMOL/L (21-32); CHLORIDE 101 MMOL/L (98-107); SODIUM 137 MMOL/L (136-145)
--- NOTE | 2018-11-23 13:57 | NUR ---
CASE MANAGEMENT: REVIEW 11/22/2018 SI: RESP DISTRESS. COPD. PNEUMOTHORAX T 97.8 HR 83 RR 18 B/P 167/100 SATS 98% ON 2L/NC NO LABS TODAY IS: SOLU MEDROL IV Q6H ZOSYN IV Q8H ALFRED DUR PO Q12H : TO TELEMETRY UNIT PLAN OF CARE: -Chest tube placed at bedside -supplemental O2 -tube to suction vac 11/23/2018 SI: RESP DISTRESS. COPD. PNEUMOTHORAX T 98.5 HR 101 RR 20 B/P 113/75 SATS 99% ON RA WBC 26.7 BUN 24 GLU 160 IS: SOLU MEDROL IV Q6H ZOSYN IV Q8H ALFRED DUR PO Q12H CXR >> near-complete resolution of the left pneumothorax : TO TELEMETRY UNIT PLAN OF CARE: -supplemental O2 -continue chest tube to suction vac
--- NOTE | 2018-11-23 14:19 | Internal Med Progress Note ---
Subjective Date of Service: Nov 23, 2018 Physician Name Nba Wallace Attending Physician Sukhjinder Bullock MD Current Medications Medications (Trade) Dose Ordered Sig/Charis Route PRN Reason Start Time Stop Time Status Last Admin Dose Admin Albuterol/ Ipratropium (Albuterol/ Ipratropium) 3 ml Q4H PRN HHN dyspnea 11/20/18 21:00 11/25/18 20:59 11/21/18 20:14 Clonidine HCl (Catapres Tab) 0.1 mg Q6H PRN ORAL SBP > 160mmhg 11/21/18 12:30 12/21/18 12:29 11/21/18 13:00 Dextrose (Dextrose 50%) 25 ml Q30M PRN IV Hypoglycemia 11/20/18 21:00 12/20/18 20:59 Dextrose (Dextrose 50%) 50 ml Q30M PRN IV Hypoglycemia 11/20/18 21:00 12/20/18 20:59 Heparin Sodium (Porcine) (Heparin 5000 units/ml) 5,000 units EVERY 12 HOURS SUBQ 11/20/18 21:00 12/20/18 20:59 11/23/18 08:07 Ketorolac Tromethamine (Toradol 30mg) 30 mg Q8H PRN IV Moderate Pain (Pain Scale 4-6) 11/20/18 21:00 11/25/18 20:59 11/21/18 11:45 Lorazepam (Ativan 2mg/ml 1ml) 0.5 mg Q4H PRN IV For Anxiety 11/20/18 21:00 11/27/18 20:59 Methylprednisolone Sodium Succinate (Solu-MEDROL) 60 mg EVERY 6 HOURS IV 11/21/18 00:00 12/21/18 00:00 11/23/18 12:15 Morphine Sulfate (Morphine Sulfate) 2 mg Q4H PRN IVP Severe Pain (Pain Scale 7-10) 11/20/18 21:00 11/27/18 20:59 Nitroglycerin (Ntg) 0.4 mg Q5MIN X 3 DOSES PRN SL Prn Chest Pain 11/20/18 21:00 12/20/18 20:59 Ondansetron HCl (Zofran) 4 mg Q6H PRN IVP Nausea & Vomiting 11/20/18 21:00 12/20/18 20:59 11/21/18 11:45 Piperacillin Sod/ Tazobactam Sod 3.375 gm/Sodium Chloride 110 ml @ 27.5 mls/hr EVERY 8 HOURS IVPB 11/20/18 22:00 11/25/18 21:59 11/23/18 12:17 Promethazine HCl/ Codeine (Phenergan with Codeine) 5 ml Q6H PRN ORAL cough 11/20/18 21:00 12/20/18 20:59 11/22/18 04:21 Temazepam (Restoril) 15 mg HSPRN PRN ORAL Insomnia 11/20/18 21:00 11/27/18 20:59 Theophylline (Abelardo-Dur) 100 mg EVERY 12 HOURS ORAL 11/20/18 21:00 12/20/18 20:59 11/23/18 08:06 Allergies: Coded Allergies: No Known Allergies (Unverified , 11/20/18) ROS Limited/Unobtainable: No Constitutional: Reports: no symptoms HEENT: Reports: no symptoms Cardiovascular: Reports: no symptoms Respiratory: Reports: cough Gastrointestinal/Abdominal: Reports: no symptoms Genitourinary: Reports: no symptoms Neurologic/Psychiatric: Reports: no symptoms Subjective 63 YO M admitted with left lung mass and left pneumothorax. S/P left throacostomy and chest tube 11/22/18. Objective Last Vital Signs Date Time Temp Pulse Resp B/P (MAP) Pulse Ox O2 Delivery O2 Flow Rate FiO2 11/23/18 11:56 96.6 95 21 139/93 (108) 99 11/23/18 09:00 Nasal Cannula 2.0 11/23/18 01:23 36 General Appearance: WD/WN, no apparent distress, alert EENT: PERRL/EOMI, normal ENT inspection Neck: non-tender, normal alignment, supple, normal inspection Cardiovascular: normal peripheral pulses, normal rate, regular rhythm, no gallop/murmur, no JVD Respiratory/Chest: lungs clear, respiratory distress, decreased breath sounds, accessory muscle use, crackles/rales, rhonchi - bilaterally Abdomen: normal bowel sounds, non tender, soft, no organomegaly, no mass Extremities: normal range of motion 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, no motor/sensory deficits Laboratory Tests Test 11/23/18 09:48 White Blood Count 26.7 K/UL (4.8-10.8) *H Red Blood Count 4.31 M/UL (4.70-6.10) L Hemoglobin 15.1 G/DL (14.2-18.0) Hematocrit 44.7 % (42.0-52.0) Mean Corpuscular Volume 104 FL (80-99) H Mean Corpuscular Hemoglobin 35.0 PG (27.0-31.0) H Mean Corpuscular Hemoglobin Concent 33.8 G/DL (32.0-36.0) Red Cell Distribution Width 11.0 % (11.6-14.8) L Platelet Count 417 K/UL (150-450) Mean Platelet Volume 6.4 FL (6.5-10.1) L Neutrophils (%) (Auto) % (45.0-75.0) Lymphocytes (%) (Auto) % (20.0-45.0) Monocytes (%) (Auto) % (1.0-10.0) Eosinophils (%) (Auto) % (0.0-3.0) Basophils (%) (Auto) % (0.0-2.0) Differential Total Cells Counted 100 Neutrophils % (Manual) 92 % (45-75) H Lymphocytes % (Manual) 2 % (20-45) L Monocytes % (Manual) 6 % (1-10) Eosinophils % (Manual) 0 % (0-3) Basophils % (Manual) 0 % (0-2) Band Neutrophils 0 % (0-8) Platelet Estimate Adequate Platelet Morphology Normal Macrocytosis 1+ Sodium Level 137 MMOL/L (136-145) Potassium Level 4.0 MMOL/L (3.5-5.1) Chloride Level 101 MMOL/L (98-107) Carbon Dioxide Level 30 MMOL/L (21-32) Anion Gap 6 mmol/L (5-15) Blood Urea Nitrogen 24 mg/dL (7-18) H Creatinine 1.0 MG/DL (0.55-1.30) Estimat Glomerular Filtration Rate > 60 mL/min (>60) Glucose Level 160 MG/DL (74-106) H Calcium Level 9.4 MG/DL (8.5-10.1) Microbiology Date/Time Source Procedure Growth Status 11/20/18 17:05 Blood Blood Culture - Preliminary NO GROWTH AFTER 48 HOURS Resulted 11/20/18 17:05 Blood Blood Culture - Preliminary NO GROWTH AFTER 48 HOURS Resulted Intake and Output 11/22/18 11/23/18 19:00 07:00 Intake Total 1232 ml 500 ml Balance 1232 ml 500 ml Intake Oral 1232 ml 500 ml Assessment/Plan Assessment/Plan ASSESSMENT: 1. Severe shortness of breath, most likely secondary to acute left-sided pneumothorax. 2. 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 3. Chronic smoker with emphysema and chronic obstructive pulmonary disease. 4. Mild distended esophagus. 5. Microhematuria. PLAN: Admit the patient to monitored unit. Discussed case with Dr. Berman, Pulmonary Critical Care and Dr. Justus Zhang from Plastic surgery. We will follow up with laboratory and chest x-ray. Code status is Full Code. Nebulizer treatment. For DVT prophylaxis, SCD. Left chest tube placed 11/22/18-see surgery note. Await throacic surgery consult for left lung mass-Nba Myers MD Nov 23, 2018 14:18
--- NOTE | 2018-11-23 15:35 | Pulmonology Progress Note ---
Assessment/Plan Problems: (1) Acute respiratory failure (2) COPD (chronic obstructive pulmonary disease) (3) Pneumothorax (4) Lung mass Assessment/Plan less short of breath cxr daily continue suction of the chest tube. f/u by surgery CT guided biopsy when more stable. Subjective ROS Limited/Unobtainable: No Constitutional: Reports: no symptoms Respiratory: Reports: no symptoms Allergies: Coded Allergies: No Known Allergies (Unverified , 11/20/18) Objective Last 24 Hour Vital Signs Date Time Temp Pulse Resp B/P (MAP) Pulse Ox O2 Delivery O2 Flow Rate FiO2 11/23/18 11:56 96.6 95 21 139/93 (108) 99 11/23/18 09:00 Nasal Cannula 2.0 11/23/18 08:00 102 11/23/18 08:00 98.5 101 20 113/75 (88) 99 11/23/18 04:00 97.6 85 19 152/90 (110) 98 11/23/18 04:00 88 11/23/18 01:23 Nasal Cannula 4.0 36 11/23/18 01:23 98 Nasal Cannula 4.0 36 11/23/18 01:23 83 20 Nasal Cannula 4.0 36 11/23/18 00:00 88 11/23/18 00:00 97.4 96 18 136/80 (98) 99 11/22/18 21:00 Nasal Cannula 2.0 11/22/18 20:00 97.8 83 18 167/100 (122) 98 11/22/18 16:00 115 11/22/18 15:53 97.6 112 20 151/99 (116) 94 Intake and Output 11/22/18 11/23/18 19:00 07:00 Intake Total 1232 ml 500 ml Balance 1232 ml 500 ml Intake Oral 1232 ml 500 ml Objective chest tube in place General Appearance: WD/WN HEENT: normocephalic Respiratory/Chest: chest wall non-tender, normal breath sounds Cardiovascular: normal rate, no JVD Abdomen: non distended Skin: no rash Microbiology Date/Time Source Procedure Growth Status 11/20/18 17:05 Blood Blood Culture - Preliminary NO GROWTH AFTER 48 HOURS Resulted 11/20/18 17:05 Blood Blood Culture - Preliminary NO GROWTH AFTER 48 HOURS Resulted Laboratory Tests 11/23/18 09:48: White Blood Count 26.7*H, Red Blood Count 4.31L, Hemoglobin 15.1, Hematocrit 44.7, Mean Corpuscular Volume 104H, Mean Corpuscular Hemoglobin 35.0H, Mean Corpuscular Hemoglobin Concent 33.8, Red Cell Distribution Width 11.0L, Platelet Count 417, Mean Platelet Volume 6.4L, Neutrophils (%) (Auto) , Lymphocytes (%) (Auto) , Monocytes (%) (Auto) , Eosinophils (%) (Auto) , Basophils (%) (Auto) , Differential Total Cells Counted 100, Neutrophils % ( Manual) 92H, Lymphocytes % (Manual) 2L, Monocytes % (Manual) 6, Eosinophils % ( Manual) 0, Basophils % (Manual) 0, Band Neutrophils 0, Platelet Estimate Adequate, Platelet Morphology Normal, Macrocytosis 1+, Sodium Level 137, Potassium Level 4.0, Chloride Level 101, Carbon Dioxide Level 30, Anion Gap 6, Blood Urea Nitrogen 24H, Creatinine 1.0, Estimat Glomerular Filtration Rate > 60 , Glucose Level 160H, Calcium Level 9.4 Current Medications Medications (Trade) Dose Ordered Sig/Charis Route PRN Reason Start Time Stop Time Status Last Admin Dose Admin Albuterol/ Ipratropium (Albuterol/ Ipratropium) 3 ml Q4H PRN HHN dyspnea 11/20/18 21:00 11/25/18 20:59 11/21/18 20:14 Clonidine HCl (Catapres Tab) 0.1 mg Q6H PRN ORAL SBP > 160mmhg 11/21/18 12:30 12/21/18 12:29 11/21/18 13:00 Dextrose (Dextrose 50%) 25 ml Q30M PRN IV Hypoglycemia 11/20/18 21:00 12/20/18 20:59 Dextrose (Dextrose 50%) 50 ml Q30M PRN IV Hypoglycemia 11/20/18 21:00 12/20/18 20:59 Heparin Sodium (Porcine) (Heparin 5000 units/ml) 5,000 units EVERY 12 HOURS SUBQ 11/20/18 21:00 12/20/18 20:59 11/23/18 08:07 Ketorolac Tromethamine (Toradol 30mg) 30 mg Q8H PRN IV Moderate Pain (Pain Scale 4-6) 11/20/18 21:00 11/25/18 20:59 11/21/18 11:45 Lorazepam (Ativan 2mg/ml 1ml) 0.5 mg Q4H PRN IV For Anxiety 11/20/18 21:00 11/27/18 20:59 Methylprednisolone Sodium Succinate (Solu-MEDROL) 60 mg EVERY 6 HOURS IV 11/21/18 00:00 12/21/18 00:00 11/23/18 12:15 Morphine Sulfate (Morphine Sulfate) 2 mg Q4H PRN IVP Severe Pain (Pain Scale 7-10) 11/20/18 21:00 11/27/18 20:59 Nitroglycerin (Ntg) 0.4 mg Q5MIN X 3 DOSES PRN SL Prn Chest Pain 11/20/18 21:00 12/20/18 20:59 Ondansetron HCl (Zofran) 4 mg Q6H PRN IVP Nausea & Vomiting 11/20/18 21:00 12/20/18 20:59 11/21/18 11:45 Piperacillin Sod/ Tazobactam Sod 3.375 gm/Sodium Chloride 110 ml @ 27.5 mls/hr EVERY 8 HOURS IVPB 11/20/18 22:00 11/25/18 21:59 11/23/18 12:17 Promethazine HCl/ Codeine (Phenergan with Codeine) 5 ml Q6H PRN ORAL cough 11/20/18 21:00 12/20/18 20:59 11/22/18 04:21 Temazepam (Restoril) 15 mg HSPRN PRN ORAL Insomnia 11/20/18 21:00 11/27/18 20:59 Theophylline (Abelardo-Dur) 100 mg EVERY 12 HOURS ORAL 11/20/18 21:00 12/20/18 20:59 11/23/18 08:06 Dov Berman MD Nov 23, 2018 15:35
--- NOTE | 2018-11-23 17:13 | Consultation ---
History of Present Illness General Date patient seen: Nov 23, 2018 Chief Complaint: Dyspnea/Respdistress Reason for Consultation: left ptx Present Illness HPI 63 y/o M with hx of heavy tobacco abuse (>40 pack year), asthma/copd presents to ED on 11/20 with worsening SOB/PERSAUD, mild chest discomfort. Reports recent URI. Upon admission was noted to have L basilar PTX and lung mass. Evaluated by Dr Navarro and placed L chest tube. Denied fever/chills, n/v upon admission ID consulted for leukocytosis Allergies: Coded Allergies: No Known Allergies (Unverified , 11/20/18) Patient History Healthcare decision maker Resuscitation status Full Code Advanced Directive on File No Patient History Narrative PMhx: as above SHx: The patient is a chronic smoker, one pack of cigarettes a day. Denies any substance. Occasional alcohol use. FHx: non contributory Review of Systems All Other Systems: negative except mentioned in HPI Physical Exam Physical Exam Narrative General Appearance: cachetic Lines, tubes and drains: peripheral HEENT: normocephalic, atraumatic Neck: non-tender, normal alignment Respiratory/Chest: chest wall non-tender, lungs clear Breasts: no masses Cardiovascular/Chest: normal peripheral pulses Abdomen: normal bowel sounds Last 24 Hour Vital Signs Date Time Temp Pulse Resp B/P (MAP) Pulse Ox O2 Delivery O2 Flow Rate FiO2 11/23/18 11:56 96.6 95 21 139/93 (108) 99 11/23/18 09:00 Nasal Cannula 2.0 11/23/18 08:00 102 11/23/18 08:00 98.5 101 20 113/75 (88) 99 11/23/18 04:00 97.6 85 19 152/90 (110) 98 11/23/18 04:00 88 11/23/18 01:23 Nasal Cannula 4.0 36 11/23/18 01:23 98 Nasal Cannula 4.0 36 11/23/18 01:23 83 20 Nasal Cannula 4.0 36 11/23/18 00:00 88 11/23/18 00:00 97.4 96 18 136/80 (98) 99 11/22/18 21:00 Nasal Cannula 2.0 11/22/18 20:00 97.8 83 18 167/100 (122) 98 Intake and Output 11/22/18 11/23/18 19:00 07:00 Intake Total 1232 ml 500 ml Balance 1232 ml 500 ml Intake Oral 1232 ml 500 ml Laboratory Tests Test 11/23/18 09:48 White Blood Count 26.7 K/UL (4.8-10.8) *H Red Blood Count 4.31 M/UL (4.70-6.10) L Hemoglobin 15.1 G/DL (14.2-18.0) Hematocrit 44.7 % (42.0-52.0) Mean Corpuscular Volume 104 FL (80-99) H Mean Corpuscular Hemoglobin 35.0 PG (27.0-31.0) H Mean Corpuscular Hemoglobin Concent 33.8 G/DL (32.0-36.0) Red Cell Distribution Width 11.0 % (11.6-14.8) L Platelet Count 417 K/UL (150-450) Mean Platelet Volume 6.4 FL (6.5-10.1) L Neutrophils (%) (Auto) % (45.0-75.0) Lymphocytes (%) (Auto) % (20.0-45.0) Monocytes (%) (Auto) % (1.0-10.0) Eosinophils (%) (Auto) % (0.0-3.0) Basophils (%) (Auto) % (0.0-2.0) Differential Total Cells Counted 100 Neutrophils % (Manual) 92 % (45-75) H Lymphocytes % (Manual) 2 % (20-45) L Monocytes % (Manual) 6 % (1-10) Eosinophils % (Manual) 0 % (0-3) Basophils % (Manual) 0 % (0-2) Band Neutrophils 0 % (0-8) Platelet Estimate Adequate Platelet Morphology Normal Macrocytosis 1+ Sodium Level 137 MMOL/L (136-145) Potassium Level 4.0 MMOL/L (3.5-5.1) Chloride Level 101 MMOL/L (98-107) Carbon Dioxide Level 30 MMOL/L (21-32) Anion Gap 6 mmol/L (5-15) Blood Urea Nitrogen 24 mg/dL (7-18) H Creatinine 1.0 MG/DL (0.55-1.30) Estimat Glomerular Filtration Rate > 60 mL/min (>60) Glucose Level 160 MG/DL (74-106) H Calcium Level 9.4 MG/DL (8.5-10.1) Height (Feet): 5 Height (Inches): 6.00 Weight (Pounds): 126 Medications Current Medications Medications (Trade) Dose Ordered Sig/Charis Route PRN Reason Start Time Stop Time Status Last Admin Dose Admin Albuterol/ Ipratropium (Albuterol/ Ipratropium) 3 ml Q4H PRN HHN dyspnea 11/20/18 21:00 11/25/18 20:59 11/21/18 20:14 Clonidine HCl (Catapres Tab) 0.1 mg Q6H PRN ORAL SBP > 160mmhg 11/21/18 12:30 12/21/18 12:29 11/21/18 13:00 Dextrose (Dextrose 50%) 25 ml Q30M PRN IV Hypoglycemia 11/20/18 21:00 12/20/18 20:59 Dextrose (Dextrose 50%) 50 ml Q30M PRN IV Hypoglycemia 11/20/18 21:00 12/20/18 20:59 Heparin Sodium (Porcine) (Heparin 5000 units/ml) 5,000 units EVERY 12 HOURS SUBQ 11/20/18 21:00 12/20/18 20:59 11/23/18 08:07 Ketorolac Tromethamine (Toradol 30mg) 30 mg Q8H PRN IV Moderate Pain (Pain Scale 4-6) 11/20/18 21:00 11/25/18 20:59 11/21/18 11:45 Lorazepam (Ativan 2mg/ml 1ml) 0.5 mg Q4H PRN IV For Anxiety 11/20/18 21:00 11/27/18 20:59 Methylprednisolone Sodium Succinate (Solu-MEDROL) 60 mg EVERY 6 HOURS IV 11/21/18 00:00 12/21/18 00:00 11/23/18 16:29 Morphine Sulfate (Morphine Sulfate) 2 mg Q4H PRN IVP Severe Pain (Pain Scale 7-10) 11/20/18 21:00 11/27/18 20:59 Nitroglycerin (Ntg) 0.4 mg Q5MIN X 3 DOSES PRN SL Prn Chest Pain 11/20/18 21:00 12/20/18 20:59 Ondansetron HCl (Zofran) 4 mg Q6H PRN IVP Nausea & Vomiting 11/20/18 21:00 12/20/18 20:59 11/21/18 11:45 Piperacillin Sod/ Tazobactam Sod 3.375 gm/Sodium Chloride 110 ml @ 27.5 mls/hr EVERY 8 HOURS IVPB 11/20/18 22:00 11/25/18 21:59 11/23/18 12:17 Promethazine HCl/ Codeine (Phenergan with Codeine) 5 ml Q6H PRN ORAL cough 11/20/18 21:00 12/20/18 20:59 11/22/18 04:21 Temazepam (Restoril) 15 mg HSPRN PRN ORAL Insomnia 11/20/18 21:00 11/27/18 20:59 Theophylline (Abelardo-Dur) 100 mg EVERY 12 HOURS ORAL 11/20/18 21:00 12/20/18 20:59 11/23/18 08:06 Assessment/Plan Assessment/Plan Abx: Zosyn 11/20- Assessment: Leukocytosis, increased (on high dose steroids) -u/a wbc 5-10, nit neg , leuk neg -Bcx NTD Probable PNA -11/23 CXR: Patchy opacity at periphery of the left midlung region, stable. Moderate prominent perihilar interstitial markings, unchanged. No new focal consolidation. Afebrile L PTX sp Chest tube placement 11/22 L lung mass -CT chest: Left pneumothorax. By serial chest x-ray, the pneumothorax has increased in size over the last 24 hours. 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 Pulmonary emphysema/COPD. Pleural and parenchymal scarring in the upper lobes. Mildly distended esophagus. Consider dysmotility or other pathology. Consider EGD. Plan: -Continue Zosyn #4 for now pending sputum cx -f/u cx -Monitor CBC/CMP, temperatures -Sp cx, influenza sc -aspiration precautions -CT care -Sx f.u -Cdiff if diarrhea Thank you for this consultation. Will continue to follow along with you. Discussed with Nereida Stone M.D. Nov 23, 2018 17:13
--- NOTE | 2018-11-23 19:52 | NUR ---
HAND-OFF: Report given to GEO AMES.
[2018-11-24] VITALS: BP 156/95
[2018-11-24] MEDS: Solu-MEDROL 125mg Inj IV SCH ×3 (00:13→12:38)
[2018-11-24 04:00] VITALS: BP 168/99
[2018-11-24] MEDS: Zosyn 3.375gm q8h **Extended infusion IVPB SCH ×6 (05:46→21:55)
[2018-11-24 07:42] LABS: HEMATOCRIT 46.6 % (42.0-52.0); HEMOGLOBIN 15.8 G/DL (14.2-18.0); MEAN CORPUSCULAR VOLUME 104 FL (80-99); PLATELET COUNT 411 K/UL (150-450); RED BLOOD COUNT 4.49 M/UL (4.70-6.10); RED CELL DISTRIBUTION WIDTH 10.8 % (11.6-14.8)
[2018-11-24 07:44] LABS: ANION GAP 5 mmol/L (5-15); BLOOD UREA NITROGEN 23 mg/dL (7-18); CALCIUM 9.7 MG/DL (8.5-10.1); CARBON DIOXIDE 32 MMOL/L (21-32); CHLORIDE 98 MMOL/L (98-107); SODIUM 135 MMOL/L (136-145)
[2018-11-24 07:48] LABS: WHITE BLOOD COUNT 23.7 K/UL (4.8-10.8)
--- NOTE | 2018-11-24 07:58 | NUR ---
NURSE NOTES: Received report from HUI Watts. Patient in bed resting, SR with HR 64. No active s/s cardiac, respiratory distress noticed at this time. Denies pain at this time. Bed in lowest position, side rails up x3, call light within reach. Chest tube on with no drainage at this time. Will continue to monitor.
[2018-11-24 08:00] VITALS: BP 158/98
[2018-11-24] MEDS: Theophylline ER 100mg ORAL SCH ×2 (09:04→21:00)
[2018-11-24] MEDS: Heparin 5000 units/ml inj SUBQ SCH ×2 (09:09→19:54)
--- NOTE | 2018-11-24 10:57 | General Surgery Progress Note ---
General Surgery-Progress Note Subjective Procedure Performed left chest tube thoracostomy Additional Comments no acute events. doing well. stable. comfortable. Objective Last 24 Hour Vital Signs Date Time Temp Pulse Resp B/P (MAP) Pulse Ox O2 Delivery O2 Flow Rate FiO2 11/24/18 07:27 Nasal Cannula 4.0 36 11/24/18 07:27 98 Nasal Cannula 4.0 36 11/24/18 07:27 96 20 Nasal Cannula 4.0 36 11/24/18 04:00 97.5 78 19 168/99 (122) 99 11/24/18 04:00 64 11/24/18 00:00 76 11/24/18 00:00 97.6 78 20 156/95 (115) 98 11/23/18 21:00 Nasal Cannula 2.0 11/23/18 20:00 Nasal Cannula 4.0 36 11/23/18 20:00 82 20 Nasal Cannula 4.0 36 11/23/18 20:00 97.5 93 18 165/80 (108) 99 11/23/18 20:00 97 Nasal Cannula 4.0 36 11/23/18 16:00 97.3 83 20 163/95 (117) 98 11/23/18 16:00 88 11/23/18 12:00 95 11/23/18 12:00 97.3 83 20 163/95 (117) 98 11/23/18 11:56 96.6 95 21 139/93 (108) 99 I&O Intake and Output 11/23/18 11/24/18 19:00 07:00 Intake Total 400 ml Output Total 900 ml 1025 ml Balance -900 ml -625 ml Intake Oral 400 ml Output Urine Total 900 ml 1025 ml # Voids 2 Dressing: dry Wound: clean, dry Drains: other Cardiovascular: RSR Respiratory: clear Abdomen: soft, flat, non-tender, present bowel sounds Extremities: no tenderness, no cyanosis Laboratory Tests Test 11/24/18 06:45 White Blood Count 23.7 K/UL (4.8-10.8) *H Red Blood Count 4.49 M/UL (4.70-6.10) L Hemoglobin 15.8 G/DL (14.2-18.0) Hematocrit 46.6 % (42.0-52.0) Mean Corpuscular Volume 104 FL (80-99) H Mean Corpuscular Hemoglobin 35.2 PG (27.0-31.0) H Mean Corpuscular Hemoglobin Concent 33.8 G/DL (32.0-36.0) Red Cell Distribution Width 10.8 % (11.6-14.8) L Platelet Count 411 K/UL (150-450) Mean Platelet Volume 6.4 FL (6.5-10.1) L Neutrophils (%) (Auto) % (45.0-75.0) Lymphocytes (%) (Auto) % (20.0-45.0) Monocytes (%) (Auto) % (1.0-10.0) Eosinophils (%) (Auto) % (0.0-3.0) Basophils (%) (Auto) % (0.0-2.0) Differential Total Cells Counted 100 Neutrophils % (Manual) 86 % (45-75) H Lymphocytes % (Manual) 8 % (20-45) L Monocytes % (Manual) 6 % (1-10) Eosinophils % (Manual) 0 % (0-3) Basophils % (Manual) 0 % (0-2) Band Neutrophils 0 % (0-8) Platelet Estimate Adequate Platelet Morphology Normal Macrocytosis 1+ Sodium Level 135 MMOL/L (136-145) L Potassium Level 5.0 MMOL/L (3.5-5.1) Chloride Level 98 MMOL/L (98-107) Carbon Dioxide Level 32 MMOL/L (21-32) Anion Gap 5 mmol/L (5-15) Blood Urea Nitrogen 23 mg/dL (7-18) H Creatinine 1.0 MG/DL (0.55-1.30) Estimat Glomerular Filtration Rate > 60 mL/min (>60) Glucose Level 132 MG/DL (74-106) H Calcium Level 9.7 MG/DL (8.5-10.1) Plan Problems: (1) Pneumothorax Assessment & Plan: left basilar PTX noted on admission Repeat CXR with slight improvement clinically stable without distress s/p chest tube placed at bedside. see note cxr with near complete resolution of ptx chest tube to water seal AM CXR -supplemental O2 thank you Eliel Navarro Nov 24, 2018 10:57
--- NOTE | 2018-11-24 11:00 | NUR ---
NURSE NOTES: Dr. Navarro disconnect chest tube from suction. No drainage noticed at this time. No active s/s cardiac, respiratory distress noticed at this time. Will continue to monitor.
[2018-11-24 12:00] VITALS: BP 168/110
--- NOTE | 2018-11-24 13:29 | Infectious Diseases Prog Note ---
Assessment/Plan Assessment/Plan Abx: Zosyn 11/20- Assessment: Leukocytosis, increased (on high dose steroids); improvnig -u/a wbc 5-10, nit neg , leuk neg -Bcx NTD Probable PNA -sp cx p -11/23 CXR: Patchy opacity at periphery of the left midlung region, stable. Moderate prominent perihilar interstitial markings, unchanged. No new focal consolidation. Afebrile L PTX sp Chest tube placement 11/22 L lung mass -CT chest: Left pneumothorax. By serial chest x-ray, the pneumothorax has increased in size over the last 24 hours. 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 Pulmonary emphysema/COPD. Pleural and parenchymal scarring in the upper lobes. Mildly distended esophagus. Consider dysmotility or other pathology. Consider EGD. Plan: -Continue empiric ZOsyn #5-10 pending sputum cx -f/u cx -Monitor CBC/CMP, temperatures -f/u Sp cx, influenza sc, legionella ag urine -aspiration precautions -CT care -Sx f.u -Cdiff if diarrhea Thank you for this consultation. Will continue to follow along with you. Discussed with RN. Subjective Allergies: Coded Allergies: No Known Allergies (Unverified , 11/20/18) Subjective afebrile wbc improving Objective Vital Signs Last 24 Hour Vital Signs Date Time Temp Pulse Resp B/P (MAP) Pulse Ox O2 Delivery O2 Flow Rate FiO2 11/24/18 12:00 97.7 95 16 168/110 (129) 97 11/24/18 09:00 Nasal Cannula 3.0 11/24/18 08:00 97.5 97 16 158/98 (118) 99 11/24/18 07:27 Nasal Cannula 4.0 36 11/24/18 07:27 98 Nasal Cannula 4.0 36 11/24/18 07:27 96 20 Nasal Cannula 4.0 36 11/24/18 04:00 97.5 78 19 168/99 (122) 99 11/24/18 04:00 64 11/24/18 00:00 76 11/24/18 00:00 97.6 78 20 156/95 (115) 98 11/23/18 21:00 Nasal Cannula 2.0 11/23/18 20:00 Nasal Cannula 4.0 36 11/23/18 20:00 82 20 Nasal Cannula 4.0 36 11/23/18 20:00 97.5 93 18 165/80 (108) 99 11/23/18 20:00 97 Nasal Cannula 4.0 36 11/23/18 16:00 97.3 83 20 163/95 (117) 98 11/23/18 16:00 88 Height (Feet): 5 Height (Inches): 6.00 Weight (Pounds): 126 Objective General Appearance: cachetic Lines, tubes and drains: peripheral HEENT: normocephalic, atraumatic Neck: non-tender, normal alignment Respiratory/Chest: chest wall non-tender, lungs clear Breasts: no masses Cardiovascular/Chest: normal peripheral pulses Abdomen: normal bowel sounds Microbiology Date/Time Source Procedure Growth Status 11/23/18 22:00 Sputum Induced Gram Stain - Final Resulted 11/23/18 22:00 Sputum Induced Sputum Culture Pending Resulted Laboratory Tests Test 11/24/18 06:45 White Blood Count 23.7 K/UL (4.8-10.8) *H Red Blood Count 4.49 M/UL (4.70-6.10) L Hemoglobin 15.8 G/DL (14.2-18.0) Hematocrit 46.6 % (42.0-52.0) Mean Corpuscular Volume 104 FL (80-99) H Mean Corpuscular Hemoglobin 35.2 PG (27.0-31.0) H Mean Corpuscular Hemoglobin Concent 33.8 G/DL (32.0-36.0) Red Cell Distribution Width 10.8 % (11.6-14.8) L Platelet Count 411 K/UL (150-450) Mean Platelet Volume 6.4 FL (6.5-10.1) L Neutrophils (%) (Auto) % (45.0-75.0) Lymphocytes (%) (Auto) % (20.0-45.0) Monocytes (%) (Auto) % (1.0-10.0) Eosinophils (%) (Auto) % (0.0-3.0) Basophils (%) (Auto) % (0.0-2.0) Differential Total Cells Counted 100 Neutrophils % (Manual) 86 % (45-75) H Lymphocytes % (Manual) 8 % (20-45) L Monocytes % (Manual) 6 % (1-10) Eosinophils % (Manual) 0 % (0-3) Basophils % (Manual) 0 % (0-2) Band Neutrophils 0 % (0-8) Platelet Estimate Adequate Platelet Morphology Normal Macrocytosis 1+ Sodium Level 135 MMOL/L (136-145) L Potassium Level 5.0 MMOL/L (3.5-5.1) Chloride Level 98 MMOL/L (98-107) Carbon Dioxide Level 32 MMOL/L (21-32) Anion Gap 5 mmol/L (5-15) Blood Urea Nitrogen 23 mg/dL (7-18) H Creatinine 1.0 MG/DL (0.55-1.30) Estimat Glomerular Filtration Rate > 60 mL/min (>60) Glucose Level 132 MG/DL (74-106) H Calcium Level 9.7 MG/DL (8.5-10.1) Current Medications Medications (Trade) Dose Ordered Sig/Charis Route PRN Reason Start Time Stop Time Status Last Admin Dose Admin Albuterol/ Ipratropium (Albuterol/ Ipratropium) 3 ml Q4H PRN HHN dyspnea 11/20/18 21:00 11/25/18 20:59 11/21/18 20:14 Clonidine HCl (Catapres Tab) 0.1 mg Q6H PRN ORAL SBP > 160mmhg 11/21/18 12:30 12/21/18 12:29 11/21/18 13:00 Dextrose (Dextrose 50%) 25 ml Q30M PRN IV Hypoglycemia 11/20/18 21:00 12/20/18 20:59 Dextrose (Dextrose 50%) 50 ml Q30M PRN IV Hypoglycemia 11/20/18 21:00 12/20/18 20:59 Heparin Sodium (Porcine) (Heparin 5000 units/ml) 5,000 units EVERY 12 HOURS SUBQ 11/20/18 21:00 12/20/18 20:59 11/24/18 09:09 Ketorolac Tromethamine (Toradol 30mg) 30 mg Q8H PRN IV Moderate Pain (Pain Scale 4-6) 11/20/18 21:00 11/25/18 20:59 11/21/18 11:45 Lorazepam (Ativan 2mg/ml 1ml) 0.5 mg Q4H PRN IV For Anxiety 11/20/18 21:00 11/27/18 20:59 Methylprednisolone Sodium Succinate (Solu-MEDROL) 60 mg EVERY 6 HOURS IV 11/21/18 00:00 12/21/18 00:00 11/24/18 12:38 Morphine Sulfate (Morphine Sulfate) 2 mg Q4H PRN IVP Severe Pain (Pain Scale 7-10) 11/20/18 21:00 11/27/18 20:59 Nitroglycerin (Ntg) 0.4 mg Q5MIN X 3 DOSES PRN SL Prn Chest Pain 11/20/18 21:00 12/20/18 20:59 Ondansetron HCl (Zofran) 4 mg Q6H PRN IVP Nausea & Vomiting 11/20/18 21:00 12/20/18 20:59 11/21/18 11:45 Piperacillin Sod/ Tazobactam Sod 3.375 gm/Sodium Chloride 110 ml @ 27.5 mls/hr EVERY 8 HOURS IVPB 11/20/18 22:00 11/29/18 21:59 11/24/18 05:46 Promethazine HCl/ Codeine (Phenergan with Codeine) 5 ml Q6H PRN ORAL cough 11/20/18 21:00 12/20/18 20:59 11/22/18 04:21 Temazepam (Restoril) 15 mg HSPRN PRN ORAL Insomnia 11/20/18 21:00 11/27/18 20:59 Theophylline (Abelardo-Dur) 100 mg EVERY 12 HOURS ORAL 11/20/18 21:00 12/20/18 20:59 11/24/18 09:04 Nereida Alcocer M.D. Nov 24, 2018 13:29
--- NOTE | 2018-11-24 13:50 | NUR ---
CASE MANAGEMENT:REVIEW 11/24/18 SI: PNEUMOTHORAX CHEST TUBE PLACED ON 11/22/18 97.7 95 16 168/110 97% ON 3L/NC IS: CHEST TUBE TO SUCTION IV SOLUMEDROL Q6HRS IV ZOSYN Q8HRS ALFRED-DUR PO Q12 : TELEMETRY STATUS
--- NOTE | 2018-11-24 14:11 | Pulmonology Progress Note ---
Assessment/Plan Problems: (1) Acute respiratory failure (2) COPD (chronic obstructive pulmonary disease) (3) Pneumothorax (4) Lung mass Assessment/Plan less short of breath cxr daily continue suction of the chest tube. f/u by surgery CT guided biopsy when more stable. Subjective ROS Limited/Unobtainable: No Constitutional: Reports: no symptoms HEENT: Repors: no symptoms Respiratory: Reports: no symptoms Allergies: Coded Allergies: No Known Allergies (Unverified , 11/20/18) Objective Last 24 Hour Vital Signs Date Time Temp Pulse Resp B/P (MAP) Pulse Ox O2 Delivery O2 Flow Rate FiO2 11/24/18 12:00 97.7 95 16 168/110 (129) 97 11/24/18 12:00 81 11/24/18 09:00 Nasal Cannula 3.0 11/24/18 08:00 97.5 97 16 158/98 (118) 99 11/24/18 08:00 104 11/24/18 07:27 Nasal Cannula 4.0 36 11/24/18 07:27 98 Nasal Cannula 4.0 36 11/24/18 07:27 96 20 Nasal Cannula 4.0 36 11/24/18 04:00 97.5 78 19 168/99 (122) 99 11/24/18 04:00 64 11/24/18 00:00 76 11/24/18 00:00 97.6 78 20 156/95 (115) 98 11/23/18 21:00 Nasal Cannula 2.0 11/23/18 20:00 Nasal Cannula 4.0 36 11/23/18 20:00 82 20 Nasal Cannula 4.0 36 11/23/18 20:00 97.5 93 18 165/80 (108) 99 11/23/18 20:00 97 Nasal Cannula 4.0 36 11/23/18 16:00 97.3 83 20 163/95 (117) 98 11/23/18 16:00 88 Intake and Output 11/23/18 11/24/18 19:00 07:00 Intake Total 400 ml Output Total 900 ml 1025 ml Balance -900 ml -625 ml Intake Oral 400 ml Output Urine Total 900 ml 1025 ml # Voids 2 Objective chest tube in place General Appearance: WD/WN HEENT: atraumatic Respiratory/Chest: no accessory muscle use Cardiovascular: normal peripheral pulses, regular rhythm Abdomen: no organomegaly Genitourinary: normal external genitalia Skin: no lesions Microbiology Date/Time Source Procedure Growth Status 11/23/18 22:00 Sputum Induced Gram Stain - Final Resulted 11/23/18 22:00 Sputum Induced Sputum Culture Pending Resulted Laboratory Tests 11/24/18 06:45: White Blood Count 23.7*H, Red Blood Count 4.49L, Hemoglobin 15.8, Hematocrit 46.6, Mean Corpuscular Volume 104H, Mean Corpuscular Hemoglobin 35.2H, Mean Corpuscular Hemoglobin Concent 33.8, Red Cell Distribution Width 10.8L, Platelet Count 411, Mean Platelet Volume 6.4L, Neutrophils (%) (Auto) , Lymphocytes (%) (Auto) , Monocytes (%) (Auto) , Eosinophils (%) (Auto) , Basophils (%) (Auto) , Differential Total Cells Counted 100, Neutrophils % ( Manual) 86H, Lymphocytes % (Manual) 8L, Monocytes % (Manual) 6, Eosinophils % ( Manual) 0, Basophils % (Manual) 0, Band Neutrophils 0, Platelet Estimate Adequate, Platelet Morphology Normal, Macrocytosis 1+, Sodium Level 135L, Potassium Level 5.0, Chloride Level 98, Carbon Dioxide Level 32, Anion Gap 5, Blood Urea Nitrogen 23H, Creatinine 1.0, Estimat Glomerular Filtration Rate > 60 , Glucose Level 132H, Calcium Level 9.7 Current Medications Medications (Trade) Dose Ordered Sig/Charis Route PRN Reason Start Time Stop Time Status Last Admin Dose Admin Albuterol/ Ipratropium (Albuterol/ Ipratropium) 3 ml Q4H PRN HHN dyspnea 11/20/18 21:00 11/25/18 20:59 11/21/18 20:14 Clonidine HCl (Catapres Tab) 0.1 mg Q6H PRN ORAL SBP > 160mmhg 11/21/18 12:30 12/21/18 12:29 11/21/18 13:00 Dextrose (Dextrose 50%) 25 ml Q30M PRN IV Hypoglycemia 11/20/18 21:00 12/20/18 20:59 Dextrose (Dextrose 50%) 50 ml Q30M PRN IV Hypoglycemia 11/20/18 21:00 12/20/18 20:59 Heparin Sodium (Porcine) (Heparin 5000 units/ml) 5,000 units EVERY 12 HOURS SUBQ 11/20/18 21:00 12/20/18 20:59 11/24/18 09:09 Ketorolac Tromethamine (Toradol 30mg) 30 mg Q8H PRN IV Moderate Pain (Pain Scale 4-6) 11/20/18 21:00 11/25/18 20:59 11/21/18 11:45 Lorazepam (Ativan 2mg/ml 1ml) 0.5 mg Q4H PRN IV For Anxiety 11/20/18 21:00 11/27/18 20:59 Methylprednisolone Sodium Succinate (Solu-MEDROL) 60 mg EVERY 6 HOURS IV 11/21/18 00:00 12/21/18 00:00 11/24/18 12:38 Morphine Sulfate (Morphine Sulfate) 2 mg Q4H PRN IVP Severe Pain (Pain Scale 7-10) 11/20/18 21:00 11/27/18 20:59 Nitroglycerin (Ntg) 0.4 mg Q5MIN X 3 DOSES PRN SL Prn Chest Pain 11/20/18 21:00 12/20/18 20:59 Ondansetron HCl (Zofran) 4 mg Q6H PRN IVP Nausea & Vomiting 11/20/18 21:00 12/20/18 20:59 11/21/18 11:45 Piperacillin Sod/ Tazobactam Sod 3.375 gm/Sodium Chloride 110 ml @ 27.5 mls/hr EVERY 8 HOURS IVPB 11/20/18 22:00 11/29/18 21:59 11/24/18 05:46 Promethazine HCl/ Codeine (Phenergan with Codeine) 5 ml Q6H PRN ORAL cough 11/20/18 21:00 12/20/18 20:59 11/22/18 04:21 Temazepam (Restoril) 15 mg HSPRN PRN ORAL Insomnia 11/20/18 21:00 11/27/18 20:59 Theophylline (Abelardo-Dur) 100 mg EVERY 12 HOURS ORAL 11/20/18 21:00 12/20/18 20:59 11/24/18 09:04 Dov Berman MD Nov 24, 2018 14:11
[2018-11-24 16:00] VITALS: BP 166/110
--- NOTE | 2018-11-24 18:07 | Internal Med Progress Note ---
Subjective Date of Service: Nov 24, 2018 Physician Name Nba Wallace Attending Physician Sukhjinder Bullock MD Current Medications Medications (Trade) Dose Ordered Sig/Charis Route PRN Reason Start Time Stop Time Status Last Admin Dose Admin Albuterol/ Ipratropium (Albuterol/ Ipratropium) 3 ml Q4H PRN HHN dyspnea 11/20/18 21:00 11/25/18 20:59 11/21/18 20:14 Clonidine HCl (Catapres Tab) 0.1 mg Q6H PRN ORAL SBP > 160mmhg 11/21/18 12:30 12/21/18 12:29 11/21/18 13:00 Dextrose (Dextrose 50%) 25 ml Q30M PRN IV Hypoglycemia 11/20/18 21:00 12/20/18 20:59 Dextrose (Dextrose 50%) 50 ml Q30M PRN IV Hypoglycemia 11/20/18 21:00 12/20/18 20:59 Heparin Sodium (Porcine) (Heparin 5000 units/ml) 5,000 units EVERY 12 HOURS SUBQ 11/20/18 21:00 12/20/18 20:59 11/24/18 09:09 Ketorolac Tromethamine (Toradol 30mg) 30 mg Q8H PRN IV Moderate Pain (Pain Scale 4-6) 11/20/18 21:00 11/25/18 20:59 11/21/18 11:45 Lorazepam (Ativan 2mg/ml 1ml) 0.5 mg Q4H PRN IV For Anxiety 11/20/18 21:00 11/27/18 20:59 Morphine Sulfate (Morphine Sulfate) 2 mg Q4H PRN IVP Severe Pain (Pain Scale 7-10) 11/20/18 21:00 11/27/18 20:59 Nitroglycerin (Ntg) 0.4 mg Q5MIN X 3 DOSES PRN SL Prn Chest Pain 11/20/18 21:00 12/20/18 20:59 Ondansetron HCl (Zofran) 4 mg Q6H PRN IVP Nausea & Vomiting 11/20/18 21:00 12/20/18 20:59 11/21/18 11:45 Piperacillin Sod/ Tazobactam Sod 3.375 gm/Sodium Chloride 110 ml @ 27.5 mls/hr EVERY 8 HOURS IVPB 11/20/18 22:00 11/29/18 21:59 11/24/18 14:14 Promethazine HCl/ Codeine (Phenergan with Codeine) 5 ml Q6H PRN ORAL cough 11/20/18 21:00 12/20/18 20:59 11/22/18 04:21 Temazepam (Restoril) 15 mg HSPRN PRN ORAL Insomnia 11/20/18 21:00 11/27/18 20:59 Theophylline (Abelardo-Dur) 100 mg EVERY 12 HOURS ORAL 11/20/18 21:00 12/20/18 20:59 11/24/18 09:04 Allergies: Coded Allergies: No Known Allergies (Unverified , 11/20/18) ROS Limited/Unobtainable: No Constitutional: Reports: no symptoms HEENT: Reports: no symptoms Cardiovascular: Reports: no symptoms Respiratory: Reports: cough Gastrointestinal/Abdominal: Reports: no symptoms Genitourinary: Reports: no symptoms Neurologic/Psychiatric: Reports: no symptoms Subjective 63 YO M admitted with left lung mass and left pneumothorax. S/P left throacostomy and chest tube 11/22/18. Objective Last Vital Signs Date Time Temp Pulse Resp B/P (MAP) Pulse Ox O2 Delivery O2 Flow Rate FiO2 11/24/18 16:00 106 11/24/18 16:00 97.3 20 166/110 (128) 98 11/24/18 09:00 Nasal Cannula 3.0 11/24/18 07:27 36 Laboratory Tests Test 11/24/18 06:45 White Blood Count 23.7 K/UL (4.8-10.8) *H Red Blood Count 4.49 M/UL (4.70-6.10) L Hemoglobin 15.8 G/DL (14.2-18.0) Hematocrit 46.6 % (42.0-52.0) Mean Corpuscular Volume 104 FL (80-99) H Mean Corpuscular Hemoglobin 35.2 PG (27.0-31.0) H Mean Corpuscular Hemoglobin Concent 33.8 G/DL (32.0-36.0) Red Cell Distribution Width 10.8 % (11.6-14.8) L Platelet Count 411 K/UL (150-450) Mean Platelet Volume 6.4 FL (6.5-10.1) L Neutrophils (%) (Auto) % (45.0-75.0) Lymphocytes (%) (Auto) % (20.0-45.0) Monocytes (%) (Auto) % (1.0-10.0) Eosinophils (%) (Auto) % (0.0-3.0) Basophils (%) (Auto) % (0.0-2.0) Differential Total Cells Counted 100 Neutrophils % (Manual) 86 % (45-75) H Lymphocytes % (Manual) 8 % (20-45) L Monocytes % (Manual) 6 % (1-10) Eosinophils % (Manual) 0 % (0-3) Basophils % (Manual) 0 % (0-2) Band Neutrophils 0 % (0-8) Platelet Estimate Adequate Platelet Morphology Normal Macrocytosis 1+ Sodium Level 135 MMOL/L (136-145) L Potassium Level 5.0 MMOL/L (3.5-5.1) Chloride Level 98 MMOL/L (98-107) Carbon Dioxide Level 32 MMOL/L (21-32) Anion Gap 5 mmol/L (5-15) Blood Urea Nitrogen 23 mg/dL (7-18) H Creatinine 1.0 MG/DL (0.55-1.30) Estimat Glomerular Filtration Rate > 60 mL/min (>60) Glucose Level 132 MG/DL (74-106) H Calcium Level 9.7 MG/DL (8.5-10.1) Microbiology Date/Time Source Procedure Growth Status 11/23/18 22:00 Sputum Induced Gram Stain - Final Resulted 11/23/18 22:00 Sputum Induced Sputum Culture Pending Resulted Intake and Output 11/23/18 11/24/18 19:00 07:00 Intake Total 400 ml Output Total 900 ml 1025 ml Balance -900 ml -625 ml Intake Oral 400 ml Output Urine Total 900 ml 1025 ml # Voids 2 Objective General Appearance: WD/WN, no apparent distress, alert EENT: PERRL/EOMI, normal ENT inspection Neck: non-tender, normal alignment, supple, normal inspection Cardiovascular: normal peripheral pulses, normal rate, regular rhythm, no gallop/murmur, no JVD Respiratory/Chest: Left chest tube; respiratory distress, decreased left breath sounds, accessory muscle use, crackles/rales, rhonchi - bilaterally Abdomen: normal bowel sounds, non tender, soft, no organomegaly, no mass Extremities: normal range of motion 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 Severe shortness of breath, most likely secondary to acute left-sided pneumothorax. 2. 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 3. Chronic smoker with emphysema and chronic obstructive pulmonary disease. 4. Mild distended esophagus. 5. Microhematuria. PLAN: Admit the patient to monitored unit. Discussed case with Dr. Berman, Pulmonary Critical Care and Dr. Justus Zhang from Plastic surgery. We will follow up with laboratory and chest x-ray. Code status is Full Code. Nebulizer treatment. For DVT prophylaxis, SCD. Left chest tube placed 11/22/18-see surgery note. Await throacic surgery consult for left lung mass-Nba Myers MD Nov 24, 2018 18:07
--- NOTE | 2018-11-24 19:30 | NUR ---
NURSE NOTES: recvd pt. Pt is awake and alert AOX4. Pt has no c/o pain, n/v. Chest tube placed and draining to gravity, suction removed earlier today. IV site is c/d/i. Bed in lowest position, will continue with plan of care.
--- NOTE | 2018-11-24 19:43 | NUR ---
HAND-OFF: Report given to HUI Alcocer.
[2018-11-24 20:00] VITALS: BP 162/103
[2018-11-25] VITALS: BP 146/86
--- NOTE | 2018-11-25 02:30 | Consultation ---
DATE OF CONSULTATION: 11/24/2018 CONSULTING PHYSICIAN: Cristian Zhang M.D. REASON FOR CONSULTATION: Left lung mass associated with left chest pneumothorax. HISTORY OF PRESENT ILLNESS: This is a very pleasant 63-year-old gentleman whom I was asked to evaluate for his newly discovered left lung mass, more likely malignant as well as left chest pneumothorax. The patient was seen and evaluated and a full detailed exam was done. In summary, this is a very pleasant 63-year-old gentleman who during the workup was found to have a 3 x 2 cm mass located in the left lung, in the left lower lobe. The mass is peripherally located. From the appearance, it is mostly likely malignant. The patient is scheduled for a CT-guided biopsy in the a.m., which would be 11/25/2018. He also had a left chest pneumothorax when I previously evaluated him, and a chest x-ray was by the general surgeon. 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 The patient had a chest tube placed two days ago and the chest tube was placed to suction and the lung was fully re-expanded. At this point, the chest tube is water seal and I fully agree with the management. The plan was discussed with the and daughter as well as the patient in regard to the CT-guided biopsy that will be done in the a.m. versus possible video-assisted biopsy resection and possible mediastinoscopy. I will continue to follow up and evaluate the patient after the results of the CT-guided biopsy. Cristian Zhang M.D. DR: PATRICIA JOB#: [id number] CC:
[2018-11-25 04:00] VITALS: BP 145/92
[2018-11-25] MEDS: Zosyn 3.375gm q8h **Extended infusion IVPB SCH ×2 (06:05)
[2018-11-25 07:54] LABS: HEMATOCRIT 44.2 % (42.0-52.0); HEMOGLOBIN 15.2 G/DL (14.2-18.0); MEAN CORPUSCULAR VOLUME 104 FL (80-99); PLATELET COUNT 371 K/UL (150-450); RED BLOOD COUNT 4.26 M/UL (4.70-6.10); RED CELL DISTRIBUTION WIDTH 10.8 % (11.6-14.8)
[2018-11-25 08:03] LABS: WHITE BLOOD COUNT 22.5 K/UL (4.8-10.8)
[2018-11-25 08:05] VITALS: BP 143/98
--- NOTE | 2018-11-25 08:05 | NUR ---
NURSE NOTES: Received patient from HUI Alcocer. Patient resting in his bed with open eyes. AOx4. no c/o pain and distress at this time. chest tube draining via gravity with no drainage at this time. IV site intact and patent. Bed brakes engaged. call light and frequent used objects are with in reach. pt instructed to use his call light when need help and do not try to get out of bed with no insurance sales assistant for safety reasons.pt verbalized understanding of the given instruction. will continue to monitor.
[2018-11-25 08:13] LABS: ALANINE AMINOTRANSFERASE 40 U/L (12-78); ALBUMIN 3.3 G/DL (3.4-5.0); ALBUMIN/GLOBULIN RATIO 0.9 (1.0-2.7); ALKALINE PHOSPHATASE 70 U/L (46-116); ANION GAP 8 mmol/L (5-15); ASPARTATE AMINO TRANSFERASE 18 U/L (15-37); BILIRUBIN,TOTAL 0.3 MG/DL (0.2-1.0); BLOOD UREA NITROGEN 22 mg/dL (7-18); CALCIUM 9.1 MG/DL (8.5-10.1); CARBON DIOXIDE 29 MMOL/L (21-32); CHLORIDE 100 MMOL/L (98-107); CREATININE 0.9 MG/DL (0.55-1.30); POTASSIUM 4.3 MMOL/L (3.5-5.1); SODIUM 137 MMOL/L (136-145)
[2018-11-25] MEDS: Heparin 5000 units/ml inj SUBQ SCH ×2 (09:00→21:13)
--- NOTE | 2018-11-25 09:29 | NUR ---
CASE MANAGEMENT:REVIEW 11/25/18 SI: PNEUMOTHORAX CHEST TUBE PLACED ON 11/22/18 97.0 90 20 143/98 98% ON 4L/NC WBC+22.5 IS: CHEST TUBE TO SUCTION IV SOLUMEDROL Q6HRS IV ZOSYN Q8HRS ALFRED-DUR PO Q12 DUONEB HHN : TELEMETRY STATUS DCP: FROM HOME Addendum: 11/25/18 at 0939 by CORKY FALK LVN LVN PLAN: CT GUIDE BIOPSY OF LUNG MASS SCHEDULED FOR TODAY
[2018-11-25] MEDS: Theophylline ER 100mg ORAL SCH ×2 (09:34→21:11)
--- NOTE | 2018-11-25 09:39 | NUR ---
INSURANCE FAXED TO [employer] [facility] ANTONINA CHARLES T: [phone] F: [phone]
--- NOTE | 2018-11-25 10:25 | Infectious Diseases Prog Note ---
Assessment/Plan Assessment/Plan Abx: Zosyn 11/20- Assessment: Leukocytosis, increased (on high dose steroids); improvnig -u/a wbc 5-10, nit neg , leuk neg -Bcx NTD Probable PNA -sp cx normal resp faloar tod ate -11/23 CXR: Patchy opacity at periphery of the left midlung region, stable. Moderate prominent perihilar interstitial markings, unchanged. No new focal consolidation. Afebrile L PTX sp Chest tube placement 11/22 L lung mass -CT chest: Left pneumothorax. By serial chest x-ray, the pneumothorax has increased in size over the last 24 hours. 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 Pulmonary emphysema/COPD. Pleural and parenchymal scarring in the upper lobes. Mildly distended esophagus. Consider dysmotility or other pathology. Consider EGD. Plan: -Continue empiric ZOsyn #6/7-10 pending sputum cx -f/u cx -Monitor CBC/CMP, temperatures -f/u Sp cx, influenza sc, legionella ag urine -aspiration precautions -CT care -Sx f.u -Cdiff if diarrhea -CXR am Thank you for this consultation. Will continue to follow along with you. Discussed with RN. Subjective Allergies: Coded Allergies: No Known Allergies (Unverified , 11/20/18) Subjective afebrile wbc improving Bcx NTD Objective Vital Signs Last 24 Hour Vital Signs Date Time Temp Pulse Resp B/P (MAP) Pulse Ox O2 Delivery O2 Flow Rate FiO2 11/25/18 08:05 97.0 90 20 143/98 (113) 98 11/25/18 08:02 99 Nasal Cannula 4.0 36 11/25/18 08:02 Nasal Cannula 4.0 36 11/25/18 08:02 72 20 Nasal Cannula 4.0 36 11/25/18 06:05 163/97 11/25/18 04:00 97.5 72 18 145/92 (109) 99 11/25/18 04:00 71 11/25/18 00:00 97.5 87 18 146/86 (106) 96 11/24/18 23:12 162/103 11/24/18 22:52 97 Nasal Cannula 4.0 36 11/24/18 22:52 Nasal Cannula 4.0 36 11/24/18 22:52 85 20 Nasal Cannula 4.0 36 11/24/18 21:00 Nasal Cannula 3.0 11/24/18 20:00 95 11/24/18 20:00 97.5 92 19 162/103 (122) 99 11/24/18 16:00 106 11/24/18 16:00 97.3 106 20 166/110 (128) 98 11/24/18 12:00 97.7 95 16 168/110 (129) 97 11/24/18 12:00 81 Height (Feet): 5 Height (Inches): 6.00 Weight (Pounds): 126 Objective General Appearance: cachetic Lines, tubes and drains: peripheral HEENT: normocephalic, atraumatic Neck: non-tender, normal alignment Respiratory/Chest: chest wall non-tender, lungs clear Breasts: no masses Cardiovascular/Chest: normal peripheral pulses Abdomen: normal bowel sounds Microbiology Date/Time Source Procedure Growth Status 11/23/18 22:00 Sputum Induced Gram Stain - Final Resulted 11/23/18 22:00 Sputum Induced Sputum Culture - Preliminary NORMAL UPPER RESPIRATORY MARCOS PRESENT Resulted Laboratory Tests Test 11/25/18 07:00 White Blood Count 22.5 K/UL (4.8-10.8) *H Red Blood Count 4.26 M/UL (4.70-6.10) L Hemoglobin 15.2 G/DL (14.2-18.0) Hematocrit 44.2 % (42.0-52.0) Mean Corpuscular Volume 104 FL (80-99) H Mean Corpuscular Hemoglobin 35.7 PG (27.0-31.0) H Mean Corpuscular Hemoglobin Concent 34.4 G/DL (32.0-36.0) Red Cell Distribution Width 10.8 % (11.6-14.8) L Platelet Count 371 K/UL (150-450) Mean Platelet Volume 6.8 FL (6.5-10.1) Neutrophils (%) (Auto) % (45.0-75.0) Lymphocytes (%) (Auto) % (20.0-45.0) Monocytes (%) (Auto) % (1.0-10.0) Eosinophils (%) (Auto) % (0.0-3.0) Basophils (%) (Auto) % (0.0-2.0) Differential Total Cells Counted 100 Neutrophils % (Manual) 81 % (45-75) H Lymphocytes % (Manual) 9 % (20-45) L Monocytes % (Manual) 10 % (1-10) Eosinophils % (Manual) 0 % (0-3) Basophils % (Manual) 0 % (0-2) Band Neutrophils 0 % (0-8) Platelet Estimate Adequate Platelet Morphology Normal Macrocytosis 1+ Stomatocytes Occasional Sodium Level 137 MMOL/L (136-145) Potassium Level 4.3 MMOL/L (3.5-5.1) Chloride Level 100 MMOL/L (98-107) Carbon Dioxide Level 29 MMOL/L (21-32) Anion Gap 8 mmol/L (5-15) Blood Urea Nitrogen 22 mg/dL (7-18) H Creatinine 0.9 MG/DL (0.55-1.30) Estimat Glomerular Filtration Rate > 60 mL/min (>60) Glucose Level 99 MG/DL (74-106) Calcium Level 9.1 MG/DL (8.5-10.1) Total Bilirubin 0.3 MG/DL (0.2-1.0) Aspartate Amino Transf (AST/SGOT) 18 U/L (15-37) Alanine Aminotransferase (ALT/SGPT) 40 U/L (12-78) Alkaline Phosphatase 70 U/L (46-116) Total Protein 6.8 G/DL (6.4-8.2) Albumin 3.3 G/DL (3.4-5.0) L Globulin 3.5 g/dL Albumin/Globulin Ratio 0.9 (1.0-2.7) L Current Medications Medications (Trade) Dose Ordered Sig/Charis Route PRN Reason Start Time Stop Time Status Last Admin Dose Admin Albuterol/ Ipratropium (Albuterol/ Ipratropium) 3 ml Q4H PRN HHN dyspnea 11/20/18 21:00 11/25/18 20:59 11/21/18 20:14 Clonidine HCl (Catapres Tab) 0.1 mg Q6H PRN ORAL SBP > 160mmhg 11/21/18 12:30 12/21/18 12:29 11/25/18 06:05 Dextrose (Dextrose 50%) 25 ml Q30M PRN IV Hypoglycemia 11/20/18 21:00 12/20/18 20:59 Dextrose (Dextrose 50%) 50 ml Q30M PRN IV Hypoglycemia 11/20/18 21:00 12/20/18 20:59 Heparin Sodium (Porcine) (Heparin 5000 units/ml) 5,000 units EVERY 12 HOURS SUBQ 11/20/18 21:00 12/20/18 20:59 11/24/18 09:09 Ketorolac Tromethamine (Toradol 30mg) 30 mg Q8H PRN IV Moderate Pain (Pain Scale 4-6) 11/20/18 21:00 11/25/18 20:59 11/21/18 11:45 Lorazepam (Ativan 2mg/ml 1ml) 0.5 mg Q4H PRN IV For Anxiety 11/20/18 21:00 11/27/18 20:59 Morphine Sulfate (Morphine Sulfate) 2 mg Q4H PRN IVP Severe Pain (Pain Scale 7-10) 11/20/18 21:00 11/27/18 20:59 Nitroglycerin (Ntg) 0.4 mg Q5MIN X 3 DOSES PRN SL Prn Chest Pain 11/20/18 21:00 12/20/18 20:59 Ondansetron HCl (Zofran) 4 mg Q6H PRN IVP Nausea & Vomiting 11/20/18 21:00 12/20/18 20:59 11/21/18 11:45 Piperacillin Sod/ Tazobactam Sod 3.375 gm/Sodium Chloride 110 ml @ 27.5 mls/hr EVERY 8 HOURS IVPB 11/20/18 22:00 11/29/18 21:59 11/25/18 06:05 Promethazine HCl/ Codeine (Phenergan with Codeine) 5 ml Q6H PRN ORAL cough 11/20/18 21:00 12/20/18 20:59 11/22/18 04:21 Temazepam (Restoril) 15 mg HSPRN PRN ORAL Insomnia 11/20/18 21:00 11/27/18 20:59 Theophylline (Abelardo-Dur) 100 mg EVERY 12 HOURS ORAL 11/20/18 21:00 12/20/18 20:59 11/25/18 09:34 Nereida Alcocer M.D. Nov 25, 2018 10:25
--- NOTE | 2018-11-25 11:05 | Pulmonology Progress Note ---
Assessment/Plan Problems: (1) Acute respiratory failure (2) COPD (chronic obstructive pulmonary disease) (3) Pneumothorax (4) Lung mass Assessment/Plan less short of breath cxr daily, pneumothorax has resolved. continue suction of the chest tube. f/u by surgery CT guided biopsy when more stable. Subjective ROS Limited/Unobtainable: No Interval Events: less short of breath Constitutional: Reports: no symptoms HEENT: Repors: no symptoms Respiratory: Reports: no symptoms Allergies: Coded Allergies: No Known Allergies (Unverified , 11/20/18) Objective Last 24 Hour Vital Signs Date Time Temp Pulse Resp B/P (MAP) Pulse Ox O2 Delivery O2 Flow Rate FiO2 11/25/18 10:35 Nasal Cannula 3.0 11/25/18 08:05 97.0 90 20 143/98 (113) 98 11/25/18 08:02 99 Nasal Cannula 4.0 36 11/25/18 08:02 Nasal Cannula 4.0 36 11/25/18 08:02 72 20 Nasal Cannula 4.0 36 11/25/18 06:05 163/97 11/25/18 04:00 97.5 72 18 145/92 (109) 99 11/25/18 04:00 71 11/25/18 00:00 97.5 87 18 146/86 (106) 96 11/24/18 23:12 162/103 11/24/18 22:52 97 Nasal Cannula 4.0 36 11/24/18 22:52 Nasal Cannula 4.0 36 11/24/18 22:52 85 20 Nasal Cannula 4.0 36 11/24/18 21:00 Nasal Cannula 3.0 11/24/18 20:00 95 11/24/18 20:00 97.5 92 19 162/103 (122) 99 11/24/18 16:00 106 11/24/18 16:00 97.3 106 20 166/110 (128) 98 11/24/18 12:00 97.7 95 16 168/110 (129) 97 11/24/18 12:00 81 Intake and Output 11/24/18 11/25/18 19:00 07:00 Intake Total 720 ml 200 ml Output Total 500 ml 1050 ml Balance 220 ml -850 ml Intake Oral 720 ml 200 ml Output Urine Total 500 ml 1050 ml # Voids 2 2 Objective chest tube in place, off suction Microbiology Date/Time Source Procedure Growth Status 11/23/18 22:00 Sputum Induced Gram Stain - Final Resulted 11/23/18 22:00 Sputum Induced Sputum Culture - Preliminary NORMAL UPPER RESPIRATORY MARCOS PRESENT Resulted Laboratory Tests 11/25/18 07:00: White Blood Count 22.5*H, Red Blood Count 4.26L, Hemoglobin 15.2, Hematocrit 44.2, Mean Corpuscular Volume 104H, Mean Corpuscular Hemoglobin 35.7H, Mean Corpuscular Hemoglobin Concent 34.4, Red Cell Distribution Width 10.8L, Platelet Count 371, Mean Platelet Volume 6.8, Neutrophils (%) (Auto) , Lymphocytes (%) (Auto) , Monocytes (%) (Auto) , Eosinophils (%) (Auto) , Basophils (%) (Auto) , Differential Total Cells Counted 100, Neutrophils % ( Manual) 81H, Lymphocytes % (Manual) 9L, Monocytes % (Manual) 10, Eosinophils % ( Manual) 0, Basophils % (Manual) 0, Band Neutrophils 0, Platelet Estimate Adequate, Platelet Morphology Normal, Macrocytosis 1+, Stomatocytes Occasional, Sodium Level 137, Potassium Level 4.3, Chloride Level 100, Carbon Dioxide Level 29, Anion Gap 8, Blood Urea Nitrogen 22H, Creatinine 0.9, Estimat Glomerular Filtration Rate > 60, Glucose Level 99, Calcium Level 9.1, Total Bilirubin 0.3, Aspartate Amino Transf (AST/SGOT) 18, Alanine Aminotransferase (ALT/SGPT) 40, Alkaline Phosphatase 70, Total Protein 6.8, Albumin 3.3L, Globulin 3.5, Albumin/ Globulin Ratio 0.9L Current Medications Medications (Trade) Dose Ordered Sig/Charis Route PRN Reason Start Time Stop Time Status Last Admin Dose Admin Albuterol/ Ipratropium (Albuterol/ Ipratropium) 3 ml Q4H PRN HHN dyspnea 11/20/18 21:00 11/25/18 20:59 11/21/18 20:14 Clonidine HCl (Catapres Tab) 0.1 mg Q6H PRN ORAL SBP > 160mmhg 11/21/18 12:30 12/21/18 12:29 11/25/18 06:05 Dextrose (Dextrose 50%) 25 ml Q30M PRN IV Hypoglycemia 11/20/18 21:00 12/20/18 20:59 Dextrose (Dextrose 50%) 50 ml Q30M PRN IV Hypoglycemia 11/20/18 21:00 12/20/18 20:59 Heparin Sodium (Porcine) (Heparin 5000 units/ml) 5,000 units EVERY 12 HOURS SUBQ 11/20/18 21:00 12/20/18 20:59 11/24/18 09:09 Ketorolac Tromethamine (Toradol 30mg) 30 mg Q8H PRN IV Moderate Pain (Pain Scale 4-6) 11/20/18 21:00 11/25/18 20:59 11/21/18 11:45 Lorazepam (Ativan 2mg/ml 1ml) 0.5 mg Q4H PRN IV For Anxiety 11/20/18 21:00 11/27/18 20:59 Morphine Sulfate (Morphine Sulfate) 2 mg Q4H PRN IVP Severe Pain (Pain Scale 7-10) 11/20/18 21:00 11/27/18 20:59 Nitroglycerin (Ntg) 0.4 mg Q5MIN X 3 DOSES PRN SL Prn Chest Pain 11/20/18 21:00 12/20/18 20:59 Ondansetron HCl (Zofran) 4 mg Q6H PRN IVP Nausea & Vomiting 11/20/18 21:00 12/20/18 20:59 11/21/18 11:45 Piperacillin Sod/ Tazobactam Sod 3.375 gm/Sodium Chloride 110 ml @ 27.5 mls/hr EVERY 8 HOURS IVPB 11/20/18 22:00 11/29/18 21:59 11/25/18 06:05 Promethazine HCl/ Codeine (Phenergan with Codeine) 5 ml Q6H PRN ORAL cough 11/20/18 21:00 12/20/18 20:59 11/22/18 04:21 Temazepam (Restoril) 15 mg HSPRN PRN ORAL Insomnia 11/20/18 21:00 11/27/18 20:59 Theophylline (Abelardo-Dur) 100 mg EVERY 12 HOURS ORAL 11/20/18 21:00 12/20/18 20:59 11/25/18 09:34 Dov Berman MD Nov 25, 2018 11:05
--- NOTE | 2018-11-25 11:58 | Diagnostic Imaging Report ---
Indication: Dyspnea Comparison: 11/23/2018 A single view chest radiograph was obtained. Findings: There is a bilateral upper lobe parenchymal scarring with streaky densities and mild pleural thickening. The lungs are hyperexpanded. Heart size is normal. Bones are osteopenic. IMPRESSION: No change from the prior study. No acute findings
[2018-11-25 12:00] VITALS: BP 142/108
--- NOTE | 2018-11-25 15:16 | NUR ---
NURSE NOTES: patient refused lung biopsy.HCP made aware
--- NOTE | 2018-11-25 15:45 | General Surgery Progress Note ---
General Surgery-Progress Note Subjective Procedure Performed left chest tube thoracostomy Additional Comments doing well. comfortable. refused ct guided biopsy Objective Last 24 Hour Vital Signs Date Time Temp Pulse Resp B/P (MAP) Pulse Ox O2 Delivery O2 Flow Rate FiO2 11/25/18 12:00 67 11/25/18 12:00 96.4 75 21 142/108 (119) 98 11/25/18 10:35 Nasal Cannula 3.0 11/25/18 08:05 97.0 90 20 143/98 (113) 98 11/25/18 08:02 99 Nasal Cannula 4.0 36 11/25/18 08:02 Nasal Cannula 4.0 36 11/25/18 08:02 72 20 Nasal Cannula 4.0 36 11/25/18 08:00 81 11/25/18 06:05 163/97 11/25/18 04:00 97.5 72 18 145/92 (109) 99 11/25/18 04:00 71 11/25/18 00:00 97.5 87 18 146/86 (106) 96 11/24/18 23:12 162/103 11/24/18 22:52 97 Nasal Cannula 4.0 36 11/24/18 22:52 Nasal Cannula 4.0 36 11/24/18 22:52 85 20 Nasal Cannula 4.0 36 11/24/18 21:00 Nasal Cannula 3.0 11/24/18 20:00 95 11/24/18 20:00 97.5 92 19 162/103 (122) 99 11/24/18 16:00 106 11/24/18 16:00 97.3 106 20 166/110 (128) 98 I&O Intake and Output 11/24/18 11/25/18 19:00 07:00 Intake Total 720 ml 200 ml Output Total 500 ml 1050 ml Balance 220 ml -850 ml Intake Oral 720 ml 200 ml Output Urine Total 500 ml 1050 ml # Voids 2 2 Dressing: dry Wound: clean Drains: other Cardiovascular: RSR Respiratory: clear Abdomen: soft, flat, non-tender, present bowel sounds, non-distended Extremities: no edema, no tenderness, no cyanosis Laboratory Tests Test 11/25/18 07:00 White Blood Count 22.5 K/UL (4.8-10.8) *H Red Blood Count 4.26 M/UL (4.70-6.10) L Hemoglobin 15.2 G/DL (14.2-18.0) Hematocrit 44.2 % (42.0-52.0) Mean Corpuscular Volume 104 FL (80-99) H Mean Corpuscular Hemoglobin 35.7 PG (27.0-31.0) H Mean Corpuscular Hemoglobin Concent 34.4 G/DL (32.0-36.0) Red Cell Distribution Width 10.8 % (11.6-14.8) L Platelet Count 371 K/UL (150-450) Mean Platelet Volume 6.8 FL (6.5-10.1) Neutrophils (%) (Auto) % (45.0-75.0) Lymphocytes (%) (Auto) % (20.0-45.0) Monocytes (%) (Auto) % (1.0-10.0) Eosinophils (%) (Auto) % (0.0-3.0) Basophils (%) (Auto) % (0.0-2.0) Differential Total Cells Counted 100 Neutrophils % (Manual) 81 % (45-75) H Lymphocytes % (Manual) 9 % (20-45) L Monocytes % (Manual) 10 % (1-10) Eosinophils % (Manual) 0 % (0-3) Basophils % (Manual) 0 % (0-2) Band Neutrophils 0 % (0-8) Platelet Estimate Adequate Platelet Morphology Normal Macrocytosis 1+ Stomatocytes Occasional Sodium Level 137 MMOL/L (136-145) Potassium Level 4.3 MMOL/L (3.5-5.1) Chloride Level 100 MMOL/L (98-107) Carbon Dioxide Level 29 MMOL/L (21-32) Anion Gap 8 mmol/L (5-15) Blood Urea Nitrogen 22 mg/dL (7-18) H Creatinine 0.9 MG/DL (0.55-1.30) Estimat Glomerular Filtration Rate > 60 mL/min (>60) Glucose Level 99 MG/DL (74-106) Calcium Level 9.1 MG/DL (8.5-10.1) Total Bilirubin 0.3 MG/DL (0.2-1.0) Aspartate Amino Transf (AST/SGOT) 18 U/L (15-37) Alanine Aminotransferase (ALT/SGPT) 40 U/L (12-78) Alkaline Phosphatase 70 U/L (46-116) Total Protein 6.8 G/DL (6.4-8.2) Albumin 3.3 G/DL (3.4-5.0) L Globulin 3.5 g/dL Albumin/Globulin Ratio 0.9 (1.0-2.7) L Carcinoembryonic Antigen Pending Plan Problems: (1) Pneumothorax Assessment & Plan: left basilar PTX noted on admission Repeat CXR with slight improvement clinically stable without distress s/p chest tube placed at bedside. see note cxr with near complete resolution of ptx chest tube to water seal AM CXR plan to d/c chest tube tomorrow if cxr okay. patient with lung mass scheduled for biopsy. refused biopsy. state he is not interested in knowing what mass is. states if cancer does not want treatment. if not cancer then prefers not procedure. -supplemental O2 thank you Eliel Navarro Nov 25, 2018 15:45
[2018-11-25 16:05] VITALS: BP 130/94
--- NOTE | 2018-11-25 18:14 | Internal Med Progress Note ---
Subjective Date of Service: Nov 25, 2018 Physician Name Nba Wallace Attending Physician Sukhjinder Bullock MD Current Medications Medications (Trade) Dose Ordered Sig/Charis Route PRN Reason Start Time Stop Time Status Last Admin Dose Admin Albuterol/ Ipratropium (Albuterol/ Ipratropium) 3 ml Q4H PRN HHN dyspnea 11/20/18 21:00 11/25/18 20:59 11/21/18 20:14 Clonidine HCl (Catapres Tab) 0.1 mg Q6H PRN ORAL SBP > 160mmhg 11/21/18 12:30 12/21/18 12:29 11/25/18 06:05 Dextrose (Dextrose 50%) 25 ml Q30M PRN IV Hypoglycemia 11/20/18 21:00 12/20/18 20:59 Dextrose (Dextrose 50%) 50 ml Q30M PRN IV Hypoglycemia 11/20/18 21:00 12/20/18 20:59 Heparin Sodium (Porcine) (Heparin 5000 units/ml) 5,000 units EVERY 12 HOURS SUBQ 11/20/18 21:00 12/20/18 20:59 11/24/18 09:09 Ketorolac Tromethamine (Toradol 30mg) 30 mg Q8H PRN IV Moderate Pain (Pain Scale 4-6) 11/20/18 21:00 11/25/18 20:59 11/21/18 11:45 Lorazepam (Ativan 2mg/ml 1ml) 0.5 mg Q4H PRN IV For Anxiety 11/20/18 21:00 11/27/18 20:59 Morphine Sulfate (Morphine Sulfate) 2 mg Q4H PRN IVP Severe Pain (Pain Scale 7-10) 11/20/18 21:00 11/27/18 20:59 Nitroglycerin (Ntg) 0.4 mg Q5MIN X 3 DOSES PRN SL Prn Chest Pain 11/20/18 21:00 12/20/18 20:59 Ondansetron HCl (Zofran) 4 mg Q6H PRN IVP Nausea & Vomiting 11/20/18 21:00 12/20/18 20:59 11/21/18 11:45 Promethazine HCl/ Codeine (Phenergan with Codeine) 5 ml Q6H PRN ORAL cough 11/20/18 21:00 12/20/18 20:59 11/22/18 04:21 Temazepam (Restoril) 15 mg HSPRN PRN ORAL Insomnia 11/20/18 21:00 11/27/18 20:59 Theophylline (Abelardo-Dur) 100 mg EVERY 12 HOURS ORAL 11/20/18 21:00 12/20/18 20:59 11/25/18 09:34 Allergies: Coded Allergies: No Known Allergies (Unverified , 11/20/18) ROS Limited/Unobtainable: No Constitutional: Reports: no symptoms HEENT: Reports: no symptoms Cardiovascular: Reports: no symptoms Respiratory: Reports: no symptoms Gastrointestinal/Abdominal: Reports: no symptoms Genitourinary: Reports: no symptoms Neurologic/Psychiatric: Reports: no symptoms Subjective 63 YO M admitted with left lung mass and left pneumothorax. S/P left throacostomy and chest tube 11/22/18. Less short of breath today Objective Last Vital Signs Date Time Temp Pulse Resp B/P (MAP) Pulse Ox O2 Delivery O2 Flow Rate FiO2 11/25/18 16:05 97.2 99 21 130/94 (106) 97 11/25/18 10:35 Nasal Cannula 3.0 11/25/18 08:02 36 Laboratory Tests Test 11/25/18 07:00 White Blood Count 22.5 K/UL (4.8-10.8) *H Red Blood Count 4.26 M/UL (4.70-6.10) L Hemoglobin 15.2 G/DL (14.2-18.0) Hematocrit 44.2 % (42.0-52.0) Mean Corpuscular Volume 104 FL (80-99) H Mean Corpuscular Hemoglobin 35.7 PG (27.0-31.0) H Mean Corpuscular Hemoglobin Concent 34.4 G/DL (32.0-36.0) Red Cell Distribution Width 10.8 % (11.6-14.8) L Platelet Count 371 K/UL (150-450) Mean Platelet Volume 6.8 FL (6.5-10.1) Neutrophils (%) (Auto) % (45.0-75.0) Lymphocytes (%) (Auto) % (20.0-45.0) Monocytes (%) (Auto) % (1.0-10.0) Eosinophils (%) (Auto) % (0.0-3.0) Basophils (%) (Auto) % (0.0-2.0) Differential Total Cells Counted 100 Neutrophils % (Manual) 81 % (45-75) H Lymphocytes % (Manual) 9 % (20-45) L Monocytes % (Manual) 10 % (1-10) Eosinophils % (Manual) 0 % (0-3) Basophils % (Manual) 0 % (0-2) Band Neutrophils 0 % (0-8) Platelet Estimate Adequate Platelet Morphology Normal Macrocytosis 1+ Stomatocytes Occasional Sodium Level 137 MMOL/L (136-145) Potassium Level 4.3 MMOL/L (3.5-5.1) Chloride Level 100 MMOL/L (98-107) Carbon Dioxide Level 29 MMOL/L (21-32) Anion Gap 8 mmol/L (5-15) Blood Urea Nitrogen 22 mg/dL (7-18) H Creatinine 0.9 MG/DL (0.55-1.30) Estimat Glomerular Filtration Rate > 60 mL/min (>60) Glucose Level 99 MG/DL (74-106) Calcium Level 9.1 MG/DL (8.5-10.1) Total Bilirubin 0.3 MG/DL (0.2-1.0) Aspartate Amino Transf (AST/SGOT) 18 U/L (15-37) Alanine Aminotransferase (ALT/SGPT) 40 U/L (12-78) Alkaline Phosphatase 70 U/L (46-116) Total Protein 6.8 G/DL (6.4-8.2) Albumin 3.3 G/DL (3.4-5.0) L Globulin 3.5 g/dL Albumin/Globulin Ratio 0.9 (1.0-2.7) L Carcinoembryonic Antigen Pending Microbiology Date/Time Source Procedure Growth Status 11/23/18 22:00 Sputum Induced Gram Stain - Final Resulted 11/23/18 22:00 Sputum Induced Sputum Culture - Preliminary NORMAL UPPER RESPIRATORY MARCOS PRESENT Resulted Intake and Output 11/24/18 11/25/18 19:00 07:00 Intake Total 720 ml 200 ml Output Total 500 ml 1050 ml Balance 220 ml -850 ml Intake Oral 720 ml 200 ml Output Urine Total 500 ml 1050 ml # Voids 2 2 Objective General Appearance: WD/WN, no apparent distress, alert EENT: PERRL/EOMI, normal ENT inspection Neck: non-tender, normal alignment, supple, normal inspection Cardiovascular: normal peripheral pulses, normal rate, regular rhythm, no gallop/murmur, no JVD Respiratory/Chest: Left chest tube; respiratory distress, decreased left breath sounds, accessory muscle use, crackles/rales, rhonchi - bilaterally Abdomen: normal bowel sounds, non tender, soft, no organomegaly, no mass Extremities: normal range of motion 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 Severe shortness of breath, most likely secondary to acute left-sided pneumothorax. 2. 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 3. Chronic smoker with emphysema and chronic obstructive pulmonary disease. 4. Mild distended esophagus. 5. Microhematuria. PLAN: Admit the patient to monitored unit. Discussed case with Dr. Berman, Pulmonary Critical Care and Dr. Justus Zhang from cardiovascular surgery. We will follow up with laboratory and chest x-ray. Code status is Full Code. Nebulizer treatment. For DVT prophylaxis, SCD. Left chest tube placed 11/22/18-see surgery note. Await throacic surgery consult for left lung mass-Nba Myers MD Nov 25, 2018 18:14
--- NOTE | 2018-11-25 19:37 | NUR ---
HAND-OFF: Report given to HUI Alcocer.
[2018-11-25 20:00] VITALS: BP 133/92
--- NOTE | 2018-11-25 20:00 | NUR ---
NURSE NOTES: recvd pt. Pt is awake and alert AOX4. Pt has no c/o pain, n/v. Chest tube placed and draining to gravity, suction removed. IV site is c/d/i. Bed in lowest position, will continue with plan of care.
[2018-11-26] VITALS: BP 135/95
[2018-11-26 04:00] VITALS: BP 154/98
[2018-11-26 07:24] LABS: BASOPHILS % (AUTO) 1.6 % (0.0-2.0); EOSINOPHILS % (AUTO) 2.1 % (0.0-3.0); HEMATOCRIT 48.7 % (42.0-52.0); HEMOGLOBIN 16.5 G/DL (14.2-18.0); LYMPHOCYTES % (AUTO) 22.2 % (20.0-45.0); MEAN CORPUSCULAR VOLUME 104 FL (80-99); MONOCYTES % (AUTO) 11.7 % (1.0-10.0); NEUTROPHILS % (AUTO) 62.4 % (45.0-75.0); PLATELET COUNT 398 K/UL (150-450); RED BLOOD COUNT 4.66 M/UL (4.70-6.10); RED CELL DISTRIBUTION WIDTH 10.9 % (11.6-14.8); WHITE BLOOD COUNT 13.8 K/UL (4.8-10.8)
--- NOTE | 2018-11-26 07:40 | NUR ---
HAND-OFF: Report given to Alfredo AMES.
--- NOTE | 2018-11-26 07:54 | NUR ---
NURSE NOTES: pt awake alert, no sob. no distress. chest tube patent and intact, denies pain. call light within reach. will monitor.
[2018-11-26 07:58] LABS: ALANINE AMINOTRANSFERASE 55 U/L (12-78); ALBUMIN 3.6 G/DL (3.4-5.0); ALKALINE PHOSPHATASE 82 U/L (46-116); ANION GAP 4 mmol/L (5-15); ASPARTATE AMINO TRANSFERASE 23 U/L (15-37); BILIRUBIN,TOTAL 0.3 MG/DL (0.2-1.0); BLOOD UREA NITROGEN 24 mg/dL (7-18); CALCIUM 9.6 MG/DL (8.5-10.1); CARBON DIOXIDE 35 MMOL/L (21-32); CHLORIDE 99 MMOL/L (98-107); CREATININE 0.9 MG/DL (0.55-1.30); POTASSIUM 4.4 MMOL/L (3.5-5.1); SODIUM 138 MMOL/L (136-145)
[2018-11-26 07:59] VITALS: BP 140/90
[2018-11-26] MEDS: Theophylline ER 100mg ORAL SCH ×2 (08:11→20:41)
[2018-11-26] MEDS: Heparin 5000 units/ml inj SUBQ SCH ×2 (08:14→20:42)
--- NOTE | 2018-11-26 09:05 | NUR ---
CASE MANAGEMENT:REVIEW 11/26/18 SI: PNEUMOTHORAX CHEST TUBE PLACED ON 11/22/18 97.5 104 19 140/90 99% ON 2L/NC WBC+13.8 IS: CHEST TUBE TO SUCTION IV SOLUMEDROL Q6HRS IV ZOSYN Q8HRS ALFRED-DUR PO Q12 DUONEB HHN : TELEMETRY STATUS DCP: FROM HOME PLAN: PATIENT REFUSED CT GUIDED BIOPSY YESTERDAY
--- NOTE | 2018-11-26 09:12 | NUR ---
INSURANCE FAXED TO [employer] [facility] T: [phone] [id number] F: [phone]
--- NOTE | 2018-11-26 10:20 | Diagnostic Imaging Report ---
Indication: History of pneumothorax. Follow-up. Comparison: 11/23/2018 A single view chest radiograph was obtained. Findings: There is a probable trace pneumothorax at the left lung apex. A thoracic vent is noted on the left. Extensive scarring of the upper lobes noted. Heart size is normal. The lungs are hyperexpanded consistent with COPD. IMPRESSION: Trace left apical pneumothorax likely present. Chest tube noted in place
--- NOTE | 2018-11-26 10:24 | General Surgery Progress Note ---
General Surgery-Progress Note Subjective Procedure Performed left chest tube thoracostomy Additional Comments CXR stable. comfortable. no complaints. no leak Objective Last 24 Hour Vital Signs Date Time Temp Pulse Resp B/P (MAP) Pulse Ox O2 Delivery O2 Flow Rate FiO2 11/26/18 08:16 77 18 Nasal Cannula 2.0 28 11/26/18 08:16 99 Nasal Cannula 2.0 28 11/26/18 08:16 Nasal Cannula 2.0 28 11/26/18 07:59 97.5 104 19 140/90 (107) 99 11/26/18 07:58 Nasal Cannula 3.0 11/26/18 07:45 105 11/26/18 04:00 72 11/26/18 04:00 97.5 72 19 154/98 (116) 99 11/26/18 00:00 97.3 86 18 135/95 (108) 98 11/26/18 00:00 83 11/25/18 23:00 Nasal Cannula 3.0 11/25/18 20:51 83 18 Nasal Cannula 2.0 28 11/25/18 20:51 98 Nasal Cannula 2.0 28 11/25/18 20:51 Nasal Cannula 2.0 28 11/25/18 20:00 97.3 92 19 133/92 (106) 96 11/25/18 20:00 96 11/25/18 16:05 97.2 99 21 130/94 (106) 97 11/25/18 16:00 104 11/25/18 12:00 67 11/25/18 12:00 96.4 75 21 142/108 (119) 98 11/25/18 10:35 Nasal Cannula 3.0 I&O Intake and Output 11/25/18 11/26/18 18:59 06:59 Intake Total 240 ml 240 ml Output Total 750 ml 1000 ml Balance -510 ml -760 ml Intake Oral 240 ml Other 240 ml Output Urine Total 750 ml 1000 ml Dressing: dry Wound: clean Drains: other Cardiovascular: RSR Respiratory: clear Abdomen: soft, flat, present bowel sounds, non-distended Extremities: no cyanosis Laboratory Tests Test 11/26/18 06:01 White Blood Count 13.8 K/UL (4.8-10.8) H Red Blood Count 4.66 M/UL (4.70-6.10) L Hemoglobin 16.5 G/DL (14.2-18.0) Hematocrit 48.7 % (42.0-52.0) Mean Corpuscular Volume 104 FL (80-99) H Mean Corpuscular Hemoglobin 35.4 PG (27.0-31.0) H Mean Corpuscular Hemoglobin Concent 33.9 G/DL (32.0-36.0) Red Cell Distribution Width 10.9 % (11.6-14.8) L Platelet Count 398 K/UL (150-450) Mean Platelet Volume 6.6 FL (6.5-10.1) Neutrophils (%) (Auto) 62.4 % (45.0-75.0) Lymphocytes (%) (Auto) 22.2 % (20.0-45.0) Monocytes (%) (Auto) 11.7 % (1.0-10.0) H Eosinophils (%) (Auto) 2.1 % (0.0-3.0) Basophils (%) (Auto) 1.6 % (0.0-2.0) Sodium Level 138 MMOL/L (136-145) Potassium Level 4.4 MMOL/L (3.5-5.1) Chloride Level 99 MMOL/L (98-107) Carbon Dioxide Level 35 MMOL/L (21-32) H Anion Gap 4 mmol/L (5-15) L Blood Urea Nitrogen 24 mg/dL (7-18) H Creatinine 0.9 MG/DL (0.55-1.30) Estimat Glomerular Filtration Rate > 60 mL/min (>60) Glucose Level 93 MG/DL (74-106) Calcium Level 9.6 MG/DL (8.5-10.1) Total Bilirubin 0.3 MG/DL (0.2-1.0) Aspartate Amino Transf (AST/SGOT) 23 U/L (15-37) Alanine Aminotransferase (ALT/SGPT) 55 U/L (12-78) Alkaline Phosphatase 82 U/L (46-116) Pro-B-Type Natriuretic Peptide 102 pg/mL (0-125) Total Protein 7.3 G/DL (6.4-8.2) Albumin 3.6 G/DL (3.4-5.0) Globulin 3.7 g/dL Albumin/Globulin Ratio 1.0 (1.0-2.7) Plan Problems: (1) Pneumothorax Assessment & Plan: left basilar PTX noted on admission Repeat CXR with slight improvement clinically stable without distress s/p chest tube placed at bedside. see note cxr with near complete resolution of ptx chest tube removed at bedside without complication repeat AM CXR. if stable, d/c planning patient with lung mass scheduled for biopsy. refused biopsy. state he is not interested in knowing what mass is. states if cancer does not want treatment. if not cancer then prefers not procedure. -supplemental O2 thank you Eliel Navarro Nov 26, 2018 10:24
--- NOTE | 2018-11-26 10:30 | NUR ---
NURSE NOTES: pt s/p chest tube removal, no sob. no c/o pain. pt tolerated well. dressing on left lateral trunk no bleeding, clean dry and intact. call light within reach. will monitor
--- NOTE | 2018-11-26 11:24 | Infectious Diseases Prog Note ---
Assessment/Plan Assessment/Plan Abx: Zosyn 11/20- Assessment: Leukocytosis, increased (on high dose steroids); improvnig -u/a wbc 5-10, nit neg , leuk neg -Bcx Neg Probable PNA -sp cx normal resp yeison -11/26 CXR: There is a probable trace pneumothorax at the left lung apex. A thoracic vent is noted on the left. Extensive scarring of the upper lobes noted. Heart size is normal. The lungs are hyperexpanded consistent with COPD. -11/23 CXR: Patchy opacity at periphery of the left midlung region, stable. Moderate prominent perihilar interstitial markings, unchanged. No new focal consolidation. Afebrile L PTX sp Chest tube placement 11/22 L lung mass -CT chest: Left pneumothorax. By serial chest x-ray, the pneumothorax has increased in size over the last 24 hours. 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 Pulmonary emphysema/COPD. Pleural and parenchymal scarring in the upper lobes. Mildly distended esophagus. Consider dysmotility or other pathology. Consider EGD. Plan: -Start Ceftriaxone #1 (abx d #05/17-) for presumed PNA given no isolation of resistant organisms -11/25 SP Zosyn #6 -f/u cx -Monitor CBC/CMP, temperatures -f/u Sp cx, influenza sc, legionella ag urine -aspiration precautions -CT care -Sx f.u -Cdiff if diarrhea Thank you for this consultation. Will continue to follow along with you. Discussed with RN. Subjective Allergies: Coded Allergies: No Known Allergies (Unverified , 11/20/18) Subjective afebrile wbc improving Bcx NTD Objective Vital Signs Last 24 Hour Vital Signs Date Time Temp Pulse Resp B/P (MAP) Pulse Ox O2 Delivery O2 Flow Rate FiO2 11/26/18 08:16 77 18 Nasal Cannula 2.0 28 11/26/18 08:16 99 Nasal Cannula 2.0 28 11/26/18 08:16 Nasal Cannula 2.0 28 11/26/18 07:59 97.5 104 19 140/90 (107) 99 11/26/18 07:58 Nasal Cannula 3.0 11/26/18 07:45 105 11/26/18 04:00 72 11/26/18 04:00 97.5 72 19 154/98 (116) 99 11/26/18 00:00 97.3 86 18 135/95 (108) 98 11/26/18 00:00 83 11/25/18 23:00 Nasal Cannula 3.0 11/25/18 20:51 83 18 Nasal Cannula 2.0 28 11/25/18 20:51 98 Nasal Cannula 2.0 28 11/25/18 20:51 Nasal Cannula 2.0 28 11/25/18 20:00 97.3 92 19 133/92 (106) 96 11/25/18 20:00 96 11/25/18 16:05 97.2 99 21 130/94 (106) 97 11/25/18 16:00 104 11/25/18 12:00 67 11/25/18 12:00 96.4 75 21 142/108 (119) 98 Height (Feet): 5 Height (Inches): 6.00 Weight (Pounds): 130 Objective General Appearance: cachetic Lines, tubes and drains: peripheral HEENT: normocephalic, atraumatic Neck: non-tender, normal alignment Respiratory/Chest: chest wall non-tender, lungs clear Breasts: no masses Cardiovascular/Chest: normal peripheral pulses Abdomen: normal bowel sounds Microbiology Date/Time Source Procedure Growth Status 11/23/18 22:00 Sputum Induced Gram Stain - Final Complete 11/23/18 22:00 Sputum Culture - Final Josephine Albicans Usual Respiratory Yeison Complete Laboratory Tests Test 11/26/18 06:01 White Blood Count 13.8 K/UL (4.8-10.8) H Red Blood Count 4.66 M/UL (4.70-6.10) L Hemoglobin 16.5 G/DL (14.2-18.0) Hematocrit 48.7 % (42.0-52.0) Mean Corpuscular Volume 104 FL (80-99) H Mean Corpuscular Hemoglobin 35.4 PG (27.0-31.0) H Mean Corpuscular Hemoglobin Concent 33.9 G/DL (32.0-36.0) Red Cell Distribution Width 10.9 % (11.6-14.8) L Platelet Count 398 K/UL (150-450) Mean Platelet Volume 6.6 FL (6.5-10.1) Neutrophils (%) (Auto) 62.4 % (45.0-75.0) Lymphocytes (%) (Auto) 22.2 % (20.0-45.0) Monocytes (%) (Auto) 11.7 % (1.0-10.0) H Eosinophils (%) (Auto) 2.1 % (0.0-3.0) Basophils (%) (Auto) 1.6 % (0.0-2.0) Sodium Level 138 MMOL/L (136-145) Potassium Level 4.4 MMOL/L (3.5-5.1) Chloride Level 99 MMOL/L (98-107) Carbon Dioxide Level 35 MMOL/L (21-32) H Anion Gap 4 mmol/L (5-15) L Blood Urea Nitrogen 24 mg/dL (7-18) H Creatinine 0.9 MG/DL (0.55-1.30) Estimat Glomerular Filtration Rate > 60 mL/min (>60) Glucose Level 93 MG/DL (74-106) Calcium Level 9.6 MG/DL (8.5-10.1) Total Bilirubin 0.3 MG/DL (0.2-1.0) Aspartate Amino Transf (AST/SGOT) 23 U/L (15-37) Alanine Aminotransferase (ALT/SGPT) 55 U/L (12-78) Alkaline Phosphatase 82 U/L (46-116) Pro-B-Type Natriuretic Peptide 102 pg/mL (0-125) Total Protein 7.3 G/DL (6.4-8.2) Albumin 3.6 G/DL (3.4-5.0) Globulin 3.7 g/dL Albumin/Globulin Ratio 1.0 (1.0-2.7) Current Medications Medications (Trade) Dose Ordered Sig/Charis Route PRN Reason Start Time Stop Time Status Last Admin Dose Admin Clonidine HCl (Catapres Tab) 0.1 mg Q6H PRN ORAL SBP > 160mmhg 11/21/18 12:30 12/21/18 12:29 11/25/18 06:05 Dextrose (Dextrose 50%) 25 ml Q30M PRN IV Hypoglycemia 11/20/18 21:00 12/20/18 20:59 Dextrose (Dextrose 50%) 50 ml Q30M PRN IV Hypoglycemia 11/20/18 21:00 12/20/18 20:59 Heparin Sodium (Porcine) (Heparin 5000 units/ml) 5,000 units EVERY 12 HOURS SUBQ 11/20/18 21:00 12/20/18 20:59 11/26/18 08:14 Lorazepam (Ativan 2mg/ml 1ml) 0.5 mg Q4H PRN IV For Anxiety 11/20/18 21:00 11/27/18 20:59 Morphine Sulfate (Morphine Sulfate) 2 mg Q4H PRN IVP Severe Pain (Pain Scale 7-10) 11/20/18 21:00 11/27/18 20:59 Nitroglycerin (Ntg) 0.4 mg Q5MIN X 3 DOSES PRN SL Prn Chest Pain 11/20/18 21:00 12/20/18 20:59 Ondansetron HCl (Zofran) 4 mg Q6H PRN IVP Nausea & Vomiting 11/20/18 21:00 12/20/18 20:59 11/21/18 11:45 Promethazine HCl/ Codeine (Phenergan with Codeine) 5 ml Q6H PRN ORAL cough 11/20/18 21:00 12/20/18 20:59 11/22/18 04:21 Temazepam (Restoril) 15 mg HSPRN PRN ORAL Insomnia 11/20/18 21:00 11/27/18 20:59 Theophylline (Abelardo-Dur) 100 mg EVERY 12 HOURS ORAL 11/20/18 21:00 12/20/18 20:59 11/26/18 08:11 Nereida Alcocer M.D. Nov 26, 2018 11:24
--- NOTE | 2018-11-26 12:19 | NUR ---
RADIOLOGY DEPT CHEST X-RAY DONE.-P.DYE
[2018-11-26 12:44] VITALS: BP 150/120
[2018-11-26] MEDS: cefTRIAXone 1 GM in D5W 55 ML IVPB SCH (12:52)
--- NOTE | 2018-11-26 13:16 | NUR ---
NURSE NOTES: asked pt if takes bp meds, per pt no and he does not need it. left msg to dr Berman re bp trend relayed verbally to dr Wallace in person (during his rounds) per md offer morphine s/p chest tube removal offered morphine pt states "i dont need that right now i dont have pain"
--- NOTE | 2018-11-26 13:21 | Internal Med Progress Note ---
Subjective Date of Service: Nov 26, 2018 Physician Name Nba Wallace Attending Physician Sukhjinder Bullock MD Current Medications Medications (Trade) Dose Ordered Sig/Charis Route PRN Reason Start Time Stop Time Status Last Admin Dose Admin Ceftriaxone Sodium 1 gm/ Dextrose 55 ml @ 110 mls/hr DAILY IVPB 11/26/18 12:30 12/03/18 12:29 11/26/18 12:52 Clonidine HCl (Catapres Tab) 0.1 mg Q6H PRN ORAL SBP > 160mmhg 11/21/18 12:30 12/21/18 12:29 11/25/18 06:05 Dextrose (Dextrose 50%) 25 ml Q30M PRN IV Hypoglycemia 11/20/18 21:00 12/20/18 20:59 Dextrose (Dextrose 50%) 50 ml Q30M PRN IV Hypoglycemia 11/20/18 21:00 12/20/18 20:59 Heparin Sodium (Porcine) (Heparin 5000 units/ml) 5,000 units EVERY 12 HOURS SUBQ 11/20/18 21:00 12/20/18 20:59 11/26/18 08:14 Lorazepam (Ativan 2mg/ml 1ml) 0.5 mg Q4H PRN IV For Anxiety 11/20/18 21:00 11/27/18 20:59 Morphine Sulfate (Morphine Sulfate) 2 mg Q4H PRN IVP Severe Pain (Pain Scale 7-10) 11/20/18 21:00 11/27/18 20:59 Nitroglycerin (Ntg) 0.4 mg Q5MIN X 3 DOSES PRN SL Prn Chest Pain 11/20/18 21:00 12/20/18 20:59 Ondansetron HCl (Zofran) 4 mg Q6H PRN IVP Nausea & Vomiting 11/20/18 21:00 12/20/18 20:59 11/21/18 11:45 Promethazine HCl/ Codeine (Phenergan with Codeine) 5 ml Q6H PRN ORAL cough 11/20/18 21:00 12/20/18 20:59 11/22/18 04:21 Temazepam (Restoril) 15 mg HSPRN PRN ORAL Insomnia 11/20/18 21:00 11/27/18 20:59 Theophylline (Abelardo-Dur) 100 mg EVERY 12 HOURS ORAL 11/20/18 21:00 12/20/18 20:59 11/26/18 08:11 Allergies: Coded Allergies: No Known Allergies (Unverified , 11/20/18) ROS Limited/Unobtainable: No Constitutional: Reports: no symptoms HEENT: Reports: no symptoms Cardiovascular: Reports: no symptoms Respiratory: Reports: no symptoms Gastrointestinal/Abdominal: Reports: no symptoms Genitourinary: Reports: no symptoms Neurologic/Psychiatric: Reports: no symptoms Subjective 63 YO M admitted with left lung mass and left pneumothorax. S/P removal left chest tube 11/26/18. Await CT guided biopsy left lung mass Objective Last Vital Signs Date Time Temp Pulse Resp B/P (MAP) Pulse Ox O2 Delivery O2 Flow Rate FiO2 11/26/18 12:44 97.5 95 19 150/120 (130) 99 11/26/18 08:16 Nasal Cannula 2.0 28 Laboratory Tests Test 11/26/18 06:01 White Blood Count 13.8 K/UL (4.8-10.8) H Red Blood Count 4.66 M/UL (4.70-6.10) L Hemoglobin 16.5 G/DL (14.2-18.0) Hematocrit 48.7 % (42.0-52.0) Mean Corpuscular Volume 104 FL (80-99) H Mean Corpuscular Hemoglobin 35.4 PG (27.0-31.0) H Mean Corpuscular Hemoglobin Concent 33.9 G/DL (32.0-36.0) Red Cell Distribution Width 10.9 % (11.6-14.8) L Platelet Count 398 K/UL (150-450) Mean Platelet Volume 6.6 FL (6.5-10.1) Neutrophils (%) (Auto) 62.4 % (45.0-75.0) Lymphocytes (%) (Auto) 22.2 % (20.0-45.0) Monocytes (%) (Auto) 11.7 % (1.0-10.0) H Eosinophils (%) (Auto) 2.1 % (0.0-3.0) Basophils (%) (Auto) 1.6 % (0.0-2.0) Sodium Level 138 MMOL/L (136-145) Potassium Level 4.4 MMOL/L (3.5-5.1) Chloride Level 99 MMOL/L (98-107) Carbon Dioxide Level 35 MMOL/L (21-32) H Anion Gap 4 mmol/L (5-15) L Blood Urea Nitrogen 24 mg/dL (7-18) H Creatinine 0.9 MG/DL (0.55-1.30) Estimat Glomerular Filtration Rate > 60 mL/min (>60) Glucose Level 93 MG/DL (74-106) Calcium Level 9.6 MG/DL (8.5-10.1) Total Bilirubin 0.3 MG/DL (0.2-1.0) Aspartate Amino Transf (AST/SGOT) 23 U/L (15-37) Alanine Aminotransferase (ALT/SGPT) 55 U/L (12-78) Alkaline Phosphatase 82 U/L (46-116) Pro-B-Type Natriuretic Peptide 102 pg/mL (0-125) Total Protein 7.3 G/DL (6.4-8.2) Albumin 3.6 G/DL (3.4-5.0) Globulin 3.7 g/dL Albumin/Globulin Ratio 1.0 (1.0-2.7) Microbiology Date/Time Source Procedure Growth Status 11/23/18 22:00 Sputum Induced Gram Stain - Final Complete 11/23/18 22:00 Sputum Culture - Final Josephine Albicans Usual Respiratory Meghann Complete Intake and Output 11/25/18 11/26/18 19:00 07:00 Intake Total 240 ml 240 ml Output Total 750 ml 1000 ml Balance -510 ml -760 ml Intake Oral 240 ml Other 240 ml Output Urine Total 750 ml 1000 ml Objective General Appearance: WD/WN, no apparent distress, alert EENT: PERRL/EOMI, normal ENT inspection Neck: non-tender, normal alignment, supple, normal inspection Cardiovascular: normal peripheral pulses, normal rate, regular rhythm, no gallop/murmur, no JVD Respiratory/Chest: respiratory distress, decreased left breath sounds, accessory muscle use, crackles/rales, rhonchi - bilaterally Abdomen: normal bowel sounds, non tender, soft, no organomegaly, no mass Extremities: normal range of motion Neurologic: manager operating II-XII grossly normal, no motor/sensory deficits Assessment/Plan Assessment/Plan ASSESSMENT: 1. Severe shortness of breath, most likely secondary to acute left-sided pneumothorax. 2. 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 3. Chronic smoker with emphysema and chronic obstructive pulmonary disease. 4. Mild distended esophagus. 5. Microhematuria. PLAN: Admit the patient to monitored unit. Discussed case with Dr. Berman, Pulmonary Critical Care and Dr. Justus Zhang from cardiovascular surgery. We will follow up with laboratory and chest x-ray. Code status is Full Code. Nebulizer treatment. For DVT prophylaxis, SCD. Left chest tube placed 11/22/18; removed 11/26/18-see surgery note. See thoracic surgery consult for left lung mass-Dr Dennison Await CT guided biopsy left lung mass Nba Wallace MD Nov 26, 2018 13:21
--- NOTE | 2018-11-26 13:59 | NUR ---
RADIOLOGY DEPT PATIENT REFUSED CT CHEST EXAM SECOND TIME. NURSE NOTIFIED.
--- NOTE | 2018-11-26 14:13 | Pulmonology Progress Note ---
Assessment/Plan Problems: (1) Acute respiratory failure (2) COPD (chronic obstructive pulmonary disease) (3) Pneumothorax (4) Lung mass Assessment/Plan less short of breath symptomatic treatment check sputum taper steroids cxr in am Subjective ROS Limited/Unobtainable: No Constitutional: Reports: no symptoms HEENT: Repors: no symptoms Allergies: Coded Allergies: No Known Allergies (Unverified , 11/20/18) Objective Last 24 Hour Vital Signs Date Time Temp Pulse Resp B/P (MAP) Pulse Ox O2 Delivery O2 Flow Rate FiO2 11/26/18 12:44 97.5 95 19 150/120 (130) 99 11/26/18 11:41 125 11/26/18 08:16 77 18 Nasal Cannula 2.0 28 11/26/18 08:16 99 Nasal Cannula 2.0 28 11/26/18 08:16 Nasal Cannula 2.0 28 11/26/18 07:59 97.5 104 19 140/90 (107) 99 11/26/18 07:58 Nasal Cannula 3.0 11/26/18 07:45 105 11/26/18 04:00 72 11/26/18 04:00 97.5 72 19 154/98 (116) 99 11/26/18 00:00 97.3 86 18 135/95 (108) 98 11/26/18 00:00 83 11/25/18 23:00 Nasal Cannula 3.0 11/25/18 20:51 83 18 Nasal Cannula 2.0 28 11/25/18 20:51 98 Nasal Cannula 2.0 28 11/25/18 20:51 Nasal Cannula 2.0 28 11/25/18 20:00 97.3 92 19 133/92 (106) 96 11/25/18 20:00 96 11/25/18 16:05 97.2 99 21 130/94 (106) 97 11/25/18 16:00 104 Intake and Output 11/25/18 11/26/18 19:00 07:00 Intake Total 240 ml 240 ml Output Total 750 ml 1000 ml Balance -510 ml -760 ml Intake Oral 240 ml Other 240 ml Output Urine Total 750 ml 1000 ml Objective chest tube removed pt doesn't want any intervention now No to biopsy, no to Chemotherapy, NO to Radiation General Appearance: WD/WN HEENT: normocephalic Respiratory/Chest: lungs clear, chest wall tender Cardiovascular: regularly irregular Abdomen: soft, non tender Microbiology Date/Time Source Procedure Growth Status 11/23/18 22:00 Sputum Induced Gram Stain - Final Complete 11/23/18 22:00 Sputum Culture - Final Josephine Albicans Usual Respiratory Meghann Complete Laboratory Tests 11/26/18 06:01: White Blood Count 13.8H, Red Blood Count 4.66L, Hemoglobin 16.5, Hematocrit 48.7 , Mean Corpuscular Volume 104H, Mean Corpuscular Hemoglobin 35.4H, Mean Corpuscular Hemoglobin Concent 33.9, Red Cell Distribution Width 10.9L, Platelet Count 398, Mean Platelet Volume 6.6, Neutrophils (%) (Auto) 62.4, Lymphocytes (%) (Auto) 22.2, Monocytes (%) (Auto) 11.7H, Eosinophils (%) (Auto) 2.1, Basophils (%) (Auto) 1.6, Sodium Level 138, Potassium Level 4.4, Chloride Level 99, Carbon Dioxide Level 35H, Anion Gap 4L, Blood Urea Nitrogen 24H, Creatinine 0.9, Estimat Glomerular Filtration Rate > 60, Glucose Level 93, Calcium Level 9.6, Total Bilirubin 0.3, Aspartate Amino Transf (AST/SGOT) 23, Alanine Aminotransferase (ALT/SGPT) 55, Alkaline Phosphatase 82, Pro-B-Type Natriuretic Peptide 102, Total Protein 7.3, Albumin 3.6, Globulin 3.7, Albumin/ Globulin Ratio 1.0 Current Medications Medications (Trade) Dose Ordered Sig/Charis Route PRN Reason Start Time Stop Time Status Last Admin Dose Admin Ceftriaxone Sodium 1 gm/ Dextrose 55 ml @ 110 mls/hr DAILY IVPB 11/26/18 12:30 12/03/18 12:29 11/26/18 12:52 Clonidine HCl (Catapres Tab) 0.1 mg Q6H PRN ORAL SBP > 160mmhg 11/21/18 12:30 12/21/18 12:29 11/25/18 06:05 Dextrose (Dextrose 50%) 25 ml Q30M PRN IV Hypoglycemia 11/20/18 21:00 12/20/18 20:59 Dextrose (Dextrose 50%) 50 ml Q30M PRN IV Hypoglycemia 11/20/18 21:00 12/20/18 20:59 Heparin Sodium (Porcine) (Heparin 5000 units/ml) 5,000 units EVERY 12 HOURS SUBQ 11/20/18 21:00 12/20/18 20:59 11/26/18 08:14 Lorazepam (Ativan 2mg/ml 1ml) 0.5 mg Q4H PRN IV For Anxiety 11/20/18 21:00 11/27/18 20:59 Morphine Sulfate (Morphine Sulfate) 2 mg Q4H PRN IVP Severe Pain (Pain Scale 7-10) 11/20/18 21:00 11/27/18 20:59 Nitroglycerin (Ntg) 0.4 mg Q5MIN X 3 DOSES PRN SL Prn Chest Pain 11/20/18 21:00 12/20/18 20:59 Ondansetron HCl (Zofran) 4 mg Q6H PRN IVP Nausea & Vomiting 11/20/18 21:00 12/20/18 20:59 11/21/18 11:45 Promethazine HCl/ Codeine (Phenergan with Codeine) 5 ml Q6H PRN ORAL cough 11/20/18 21:00 12/20/18 20:59 11/22/18 04:21 Temazepam (Restoril) 15 mg HSPRN PRN ORAL Insomnia 11/20/18 21:00 11/27/18 20:59 Theophylline (Abelardo-Dur) 100 mg EVERY 12 HOURS ORAL 11/20/18 21:00 12/20/18 20:59 11/26/18 08:11 Dov Berman MD Nov 26, 2018 14:13
[2018-11-26 16:25] VITALS: BP 140/84
--- NOTE | 2018-11-26 19:21 | NUR ---
HAND-OFF: Report given to TRAVON AMES.
--- NOTE | 2018-11-26 19:25 | NUR ---
NURSE NOTES: Received report from HUI Fuentes. Pt is awake and resting in bed. In no acute distress. Bed in lowest position, call light within reach. Will continue plan of care.
[2018-11-26 20:00] VITALS: BP 153/87
[2018-11-27] VITALS: BP 133/81
[2018-11-27 04:00] VITALS: BP_SYST 143; BP_SYST 147; BP_DIAS 84; BP_DIAS 87
[2018-11-27 07:06] LABS: BASOPHILS % (AUTO) 1.5 % (0.0-2.0); HEMATOCRIT 47.3 % (42.0-52.0); LYMPHOCYTES % (AUTO) 18.8 % (20.0-45.0); MEAN CORPUSCULAR VOLUME 104 FL (80-99); MONOCYTES % (AUTO) 11.7 % (1.0-10.0); PLATELET COUNT 364 K/UL (150-450); RED BLOOD COUNT 4.56 M/UL (4.70-6.10); RED CELL DISTRIBUTION WIDTH 10.6 % (11.6-14.8); WHITE BLOOD COUNT 16.7 K/UL (4.8-10.8)
[2018-11-27 07:09] LABS: ALANINE AMINOTRANSFERASE 44 U/L (12-78); ALBUMIN 3.4 G/DL (3.4-5.0); ALKALINE PHOSPHATASE 76 U/L (46-116); ANION GAP 6 mmol/L (5-15); ASPARTATE AMINO TRANSFERASE 18 U/L (15-37); BILIRUBIN,TOTAL 0.4 MG/DL (0.2-1.0); BLOOD UREA NITROGEN 22 mg/dL (7-18); CARBON DIOXIDE 31 MMOL/L (21-32); CHLORIDE 99 MMOL/L (98-107); CREATININE 0.8 MG/DL (0.55-1.30); POTASSIUM 4.1 MMOL/L (3.5-5.1); SODIUM 136 MMOL/L (136-145)
--- NOTE | 2018-11-27 07:15 | NUR ---
HAND-OFF: Report given to HUI Fuentes.
--- NOTE | 2018-11-27 07:41 | NUR ---
NURSE NOTES: pt awake alert, no distress. no c/o pain. no sob. call light within reach. will monitor.
[2018-11-27] MEDS: Theophylline ER 100mg ORAL SCH (07:59)
[2018-11-27] MEDS: Heparin 5000 units/ml inj SUBQ SCH (07:59)
[2018-11-27] MEDS: cefTRIAXone 1 GM in D5W 55 ML IVPB SCH (08:00)
[2018-11-27 08:34] VITALS: BP 121/84
--- NOTE | 2018-11-27 10:16 | NUR ---
RADIOLOGY DEPT CHEST X-RAY DONE.-P.DYE
[2018-11-27 12:00] VITALS: BP 128/89
--- NOTE | 2018-11-27 12:09 | Diagnostic Imaging Report ---
Indication: Post chest tube removal. Follow-up pneumothorax Comparison: 11/26/2018 2 views of the chest obtained. Findings: No pneumothorax identified. The thoracic vent was removed from the left side. No change otherwise. Extensively hyperinflated lungs noted. IMPRESSION: Post chest tube removal. No pneumothorax
--- NOTE | 2018-11-27 12:14 | General Surgery Progress Note ---
General Surgery-Progress Note Subjective Procedure Performed left chest tube thoracostomy Symptoms: improved, pain absent, tolerating diet, voiding well, passing flatus Additional Comments CXR after chest tube out okay Objective Last 24 Hour Vital Signs Date Time Temp Pulse Resp B/P (MAP) Pulse Ox O2 Delivery O2 Flow Rate FiO2 11/27/18 09:00 Nasal Cannula 3.0 11/27/18 08:34 97.2 105 18 121/84 (96) 99 11/27/18 08:20 98 Nasal Cannula 2.0 28 11/27/18 08:20 Nasal Cannula 2.0 28 11/27/18 08:20 103 21 Nasal Cannula 2.0 28 11/27/18 07:56 99 11/27/18 04:00 71 11/27/18 04:00 97.2 71 18 147/84 (105) 99 11/27/18 01:54 81 11/27/18 00:00 81 11/27/18 00:00 97.8 81 18 133/81 (98) 98 11/26/18 21:00 Nasal Cannula 3.0 11/26/18 20:25 89 18 Nasal Cannula 2.0 28 11/26/18 20:25 Nasal Cannula 2.0 28 11/26/18 20:25 99 Nasal Cannula 2.0 28 11/26/18 20:00 98.3 107 18 153/87 (109) 98 11/26/18 20:00 107 11/26/18 16:25 99 19 140/84 (102) 99 11/26/18 15:29 119 11/26/18 12:44 97.5 95 19 150/120 (130) 99 I&O Intake and Output 11/26/18 11/27/18 18:59 06:59 Intake Total 360 ml Output Total 850 ml Balance -490 ml Intake Oral 360 ml Output Urine Total 850 ml # Voids 3 # Bowel Movements 1 1 Wound: clean, dry Drains: none Cardiovascular: RSR Respiratory: clear Abdomen: soft, flat, present bowel sounds, non-distended Extremities: no cyanosis Laboratory Tests Test 11/27/18 06:05 White Blood Count 16.7 K/UL (4.8-10.8) H Red Blood Count 4.56 M/UL (4.70-6.10) L Hemoglobin 16.0 G/DL (14.2-18.0) Hematocrit 47.3 % (42.0-52.0) Mean Corpuscular Volume 104 FL (80-99) H Mean Corpuscular Hemoglobin 35.0 PG (27.0-31.0) H Mean Corpuscular Hemoglobin Concent 33.7 G/DL (32.0-36.0) Red Cell Distribution Width 10.6 % (11.6-14.8) L Platelet Count 364 K/UL (150-450) Mean Platelet Volume 6.9 FL (6.5-10.1) Neutrophils (%) (Auto) 65.0 % (45.0-75.0) Lymphocytes (%) (Auto) 18.8 % (20.0-45.0) L Monocytes (%) (Auto) 11.7 % (1.0-10.0) H Eosinophils (%) (Auto) 3.0 % (0.0-3.0) Basophils (%) (Auto) 1.5 % (0.0-2.0) Sodium Level 136 MMOL/L (136-145) Potassium Level 4.1 MMOL/L (3.5-5.1) Chloride Level 99 MMOL/L (98-107) Carbon Dioxide Level 31 MMOL/L (21-32) Anion Gap 6 mmol/L (5-15) Blood Urea Nitrogen 22 mg/dL (7-18) H Creatinine 0.8 MG/DL (0.55-1.30) Estimat Glomerular Filtration Rate > 60 mL/min (>60) Glucose Level 102 MG/DL (74-106) Calcium Level 9.0 MG/DL (8.5-10.1) Total Bilirubin 0.4 MG/DL (0.2-1.0) Aspartate Amino Transf (AST/SGOT) 18 U/L (15-37) Alanine Aminotransferase (ALT/SGPT) 44 U/L (12-78) Alkaline Phosphatase 76 U/L (46-116) Pro-B-Type Natriuretic Peptide 66 pg/mL (0-125) Total Protein 6.8 G/DL (6.4-8.2) Albumin 3.4 G/DL (3.4-5.0) Globulin 3.4 g/dL Albumin/Globulin Ratio 1.0 (1.0-2.7) Plan Problems: (1) Pneumothorax Assessment & Plan: left basilar PTX noted on admission Repeat CXR with slight improvement clinically stable without distress s/p chest tube placed at bedside. see note cxr with near complete resolution of ptx chest tube removed at bedside without complication repeat AM CXR stable since tube out. patient with lung mass scheduled for biopsy. refused biopsy. state he is not interested in knowing what mass is. states if cancer does not want treatment. if not cancer then prefers not procedure. d/c planning -supplemental O2 thank you Eliel Navarro Nov 27, 2018 12:14
[2018-11-27] MEDS ORDERED: ALBUTEROL SULF8.5 GM INH (12:28)
[2018-11-27] MEDS ORDERED: THEOPHYLLINE A100 MG ORAL (12:28)
--- NOTE | 2018-11-27 12:32 | Pulmonology Progress Note ---
Assessment/Plan Problems: (1) Acute respiratory failure (2) COPD (chronic obstructive pulmonary disease) (3) Pneumothorax (4) Lung mass Assessment/Plan less short of breath dc home with oral theophyline and albuterol pt will think about what to do for his right upper lobe cancer in the next few weeks. Subjective ROS Limited/Unobtainable: No Constitutional: Reports: no symptoms HEENT: Repors: no symptoms Respiratory: Reports: no symptoms Allergies: Coded Allergies: No Known Allergies (Unverified , 11/20/18) Objective Last 24 Hour Vital Signs Date Time Temp Pulse Resp B/P (MAP) Pulse Ox O2 Delivery O2 Flow Rate FiO2 11/27/18 09:00 Nasal Cannula 3.0 11/27/18 08:34 97.2 105 18 121/84 (96) 99 11/27/18 08:20 98 Nasal Cannula 2.0 28 11/27/18 08:20 Nasal Cannula 2.0 28 11/27/18 08:20 103 21 Nasal Cannula 2.0 28 11/27/18 07:56 99 11/27/18 04:00 71 11/27/18 04:00 97.2 71 18 147/84 (105) 99 11/27/18 01:54 81 11/27/18 00:00 81 11/27/18 00:00 97.8 81 18 133/81 (98) 98 11/26/18 21:00 Nasal Cannula 3.0 11/26/18 20:25 89 18 Nasal Cannula 2.0 28 11/26/18 20:25 Nasal Cannula 2.0 28 11/26/18 20:25 99 Nasal Cannula 2.0 28 11/26/18 20:00 98.3 107 18 153/87 (109) 98 11/26/18 20:00 107 11/26/18 16:25 99 19 140/84 (102) 99 11/26/18 15:29 119 11/26/18 12:44 97.5 95 19 150/120 (130) 99 Intake and Output 11/26/18 11/27/18 18:59 06:59 Intake Total 360 ml Output Total 850 ml Balance -490 ml Intake Oral 360 ml Output Urine Total 850 ml # Voids 3 # Bowel Movements 1 1 Objective chest tube removed pt doesn't want any intervention now No to biopsy, no to Chemotherapy, NO to Radiation cxr from this morning reviewed, NO pneumothorax Laboratory Tests 11/27/18 06:05: White Blood Count 16.7H, Red Blood Count 4.56L, Hemoglobin 16.0, Hematocrit 47.3 , Mean Corpuscular Volume 104H, Mean Corpuscular Hemoglobin 35.0H, Mean Corpuscular Hemoglobin Concent 33.7, Red Cell Distribution Width 10.6L, Platelet Count 364, Mean Platelet Volume 6.9, Neutrophils (%) (Auto) 65.0, Lymphocytes (%) (Auto) 18.8L, Monocytes (%) (Auto) 11.7H, Eosinophils (%) (Auto ) 3.0, Basophils (%) (Auto) 1.5, Sodium Level 136, Potassium Level 4.1, Chloride Level 99, Carbon Dioxide Level 31, Anion Gap 6, Blood Urea Nitrogen 22H , Creatinine 0.8, Estimat Glomerular Filtration Rate > 60, Glucose Level 102, Calcium Level 9.0, Total Bilirubin 0.4, Aspartate Amino Transf (AST/SGOT) 18, Alanine Aminotransferase (ALT/SGPT) 44, Alkaline Phosphatase 76, Pro-B-Type Natriuretic Peptide 66, Total Protein 6.8, Albumin 3.4, Globulin 3.4, Albumin/ Globulin Ratio 1.0 Current Medications Medications (Trade) Dose Ordered Sig/Charis Route PRN Reason Start Time Stop Time Status Last Admin Dose Admin Ceftriaxone Sodium 1 gm/ Dextrose 55 ml @ 110 mls/hr DAILY IVPB 11/26/18 12:30 12/03/18 12:29 11/27/18 08:00 Clonidine HCl (Catapres Tab) 0.1 mg Q6H PRN ORAL SBP > 160mmhg 11/21/18 12:30 12/21/18 12:29 11/25/18 06:05 Dextrose (Dextrose 50%) 25 ml Q30M PRN IV Hypoglycemia 11/20/18 21:00 12/20/18 20:59 Dextrose (Dextrose 50%) 50 ml Q30M PRN IV Hypoglycemia 11/20/18 21:00 12/20/18 20:59 Heparin Sodium (Porcine) (Heparin 5000 units/ml) 5,000 units EVERY 12 HOURS SUBQ 11/20/18 21:00 12/20/18 20:59 11/27/18 07:59 Lorazepam (Ativan 2mg/ml 1ml) 0.5 mg Q4H PRN IV For Anxiety 11/20/18 21:00 11/27/18 20:59 Morphine Sulfate (Morphine Sulfate) 2 mg Q4H PRN IVP Severe Pain (Pain Scale 7-10) 11/20/18 21:00 11/27/18 20:59 Nitroglycerin (Ntg) 0.4 mg Q5MIN X 3 DOSES PRN SL Prn Chest Pain 11/20/18 21:00 12/20/18 20:59 Ondansetron HCl (Zofran) 4 mg Q6H PRN IVP Nausea & Vomiting 11/20/18 21:00 12/20/18 20:59 11/21/18 11:45 Promethazine HCl/ Codeine (Phenergan with Codeine) 5 ml Q6H PRN ORAL cough 11/20/18 21:00 12/20/18 20:59 11/22/18 04:21 Temazepam (Restoril) 15 mg HSPRN PRN ORAL Insomnia 11/20/18 21:00 11/27/18 20:59 Theophylline (Abelardo-Dur) 100 mg EVERY 12 HOURS ORAL 11/20/18 21:00 12/20/18 20:59 11/27/18 07:59 Dov Berman MD Nov 27, 2018 12:32
--- NOTE | 2018-11-27 13:19 | NUR ---
NURSE NOTES: iv removed, no bleeding, tele monitor off. pt waiting for daughter to pick her up, rx faxed to pharmacy with confirmation sent dc instructions given to pt with verbalized understanding, pt states he doesnt want home care
--- NOTE | 2018-11-27 13:56 | Infectious Diseases Prog Note ---
Assessment/Plan Assessment/Plan Abx: Zosyn 11/20- Assessment: Leukocytosis, increased (on high dose steroids); improvnig -u/a wbc 5-10, nit neg , leuk neg -Bcx Neg Probable PNA -sp cx normal resp yeison -11/26 CXR: There is a probable trace pneumothorax at the left lung apex. A thoracic vent is noted on the left. Extensive scarring of the upper lobes noted. Heart size is normal. The lungs are hyperexpanded consistent with COPD. -11/23 CXR: Patchy opacity at periphery of the left midlung region, stable. Moderate prominent perihilar interstitial markings, unchanged. No new focal consolidation. Afebrile L PTX sp Chest tube placement 11/22 L lung mass -CT chest: Left pneumothorax. By serial chest x-ray, the pneumothorax has increased in size over the last 24 hours. 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 Pulmonary emphysema/COPD. Pleural and parenchymal scarring in the upper lobes. Mildly distended esophagus. Consider dysmotility or other pathology. Consider EGD. Plan: -Cont Ceftriaxone #2 (abx d #06/20) for presumed PNA given no isolation of resistant organisms -11/25 SP Zosyn #6 -f/u cx -Monitor CBC/CMP, temperatures -f/u Sp cx, influenza sc, legionella ag urine -aspiration precautions -CT care -Sx f.u -Cdiff if diarrhea Thank you for this consultation. Will continue to follow along with you. Discussed with RN. Subjective Allergies: Coded Allergies: No Known Allergies (Unverified , 11/20/18) Subjective afebrile wbc overall improved Bcx NTD pt refused lung biopsy discharge planning Objective Vital Signs Last 24 Hour Vital Signs Date Time Temp Pulse Resp B/P (MAP) Pulse Ox O2 Delivery O2 Flow Rate FiO2 11/27/18 12:00 97.2 95 18 128/89 (102) 99 11/27/18 09:00 Nasal Cannula 3.0 11/27/18 08:34 97.2 105 18 121/84 (96) 99 11/27/18 08:20 98 Nasal Cannula 2.0 28 11/27/18 08:20 Nasal Cannula 2.0 28 11/27/18 08:20 103 21 Nasal Cannula 2.0 28 11/27/18 07:56 99 11/27/18 04:00 71 11/27/18 04:00 97.2 71 18 147/84 (105) 99 11/27/18 01:54 81 11/27/18 00:00 81 11/27/18 00:00 97.8 81 18 133/81 (98) 98 11/26/18 21:00 Nasal Cannula 3.0 11/26/18 20:25 89 18 Nasal Cannula 2.0 28 11/26/18 20:25 Nasal Cannula 2.0 28 11/26/18 20:25 99 Nasal Cannula 2.0 28 11/26/18 20:00 98.3 107 18 153/87 (109) 98 11/26/18 20:00 107 11/26/18 16:25 99 19 140/84 (102) 99 11/26/18 15:29 119 Height (Feet): 5 Height (Inches): 6.00 Weight (Pounds): 130 Objective General Appearance: cachetic Lines, tubes and drains: peripheral HEENT: normocephalic, atraumatic Neck: non-tender, normal alignment Respiratory/Chest: chest wall non-tender, lungs clear Breasts: no masses Cardiovascular/Chest: normal peripheral pulses Abdomen: normal bowel sounds Laboratory Tests Test 11/27/18 06:05 White Blood Count 16.7 K/UL (4.8-10.8) H Red Blood Count 4.56 M/UL (4.70-6.10) L Hemoglobin 16.0 G/DL (14.2-18.0) Hematocrit 47.3 % (42.0-52.0) Mean Corpuscular Volume 104 FL (80-99) H Mean Corpuscular Hemoglobin 35.0 PG (27.0-31.0) H Mean Corpuscular Hemoglobin Concent 33.7 G/DL (32.0-36.0) Red Cell Distribution Width 10.6 % (11.6-14.8) L Platelet Count 364 K/UL (150-450) Mean Platelet Volume 6.9 FL (6.5-10.1) Neutrophils (%) (Auto) 65.0 % (45.0-75.0) Lymphocytes (%) (Auto) 18.8 % (20.0-45.0) L Monocytes (%) (Auto) 11.7 % (1.0-10.0) H Eosinophils (%) (Auto) 3.0 % (0.0-3.0) Basophils (%) (Auto) 1.5 % (0.0-2.0) Sodium Level 136 MMOL/L (136-145) Potassium Level 4.1 MMOL/L (3.5-5.1) Chloride Level 99 MMOL/L (98-107) Carbon Dioxide Level 31 MMOL/L (21-32) Anion Gap 6 mmol/L (5-15) Blood Urea Nitrogen 22 mg/dL (7-18) H Creatinine 0.8 MG/DL (0.55-1.30) Estimat Glomerular Filtration Rate > 60 mL/min (>60) Glucose Level 102 MG/DL (74-106) Calcium Level 9.0 MG/DL (8.5-10.1) Total Bilirubin 0.4 MG/DL (0.2-1.0) Aspartate Amino Transf (AST/SGOT) 18 U/L (15-37) Alanine Aminotransferase (ALT/SGPT) 44 U/L (12-78) Alkaline Phosphatase 76 U/L (46-116) Pro-B-Type Natriuretic Peptide 66 pg/mL (0-125) Total Protein 6.8 G/DL (6.4-8.2) Albumin 3.4 G/DL (3.4-5.0) Globulin 3.4 g/dL Albumin/Globulin Ratio 1.0 (1.0-2.7) Current Medications Medications (Trade) Dose Ordered Sig/Charis Route PRN Reason Start Time Stop Time Status Last Admin Dose Admin Ceftriaxone Sodium 1 gm/ Dextrose 55 ml @ 110 mls/hr DAILY IVPB 11/26/18 12:30 12/03/18 12:29 11/27/18 08:00 Clonidine HCl (Catapres Tab) 0.1 mg Q6H PRN ORAL SBP > 160mmhg 11/21/18 12:30 12/21/18 12:29 11/25/18 06:05 Dextrose (Dextrose 50%) 25 ml Q30M PRN IV Hypoglycemia 11/20/18 21:00 12/20/18 20:59 Dextrose (Dextrose 50%) 50 ml Q30M PRN IV Hypoglycemia 11/20/18 21:00 12/20/18 20:59 Heparin Sodium (Porcine) (Heparin 5000 units/ml) 5,000 units EVERY 12 HOURS SUBQ 11/20/18 21:00 12/20/18 20:59 11/27/18 07:59 Lorazepam (Ativan 2mg/ml 1ml) 0.5 mg Q4H PRN IV For Anxiety 11/20/18 21:00 11/27/18 20:59 Morphine Sulfate (Morphine Sulfate) 2 mg Q4H PRN IVP Severe Pain (Pain Scale 7-10) 11/20/18 21:00 11/27/18 20:59 Nitroglycerin (Ntg) 0.4 mg Q5MIN X 3 DOSES PRN SL Prn Chest Pain 11/20/18 21:00 12/20/18 20:59 Ondansetron HCl (Zofran) 4 mg Q6H PRN IVP Nausea & Vomiting 11/20/18 21:00 12/20/18 20:59 11/21/18 11:45 Promethazine HCl/ Codeine (Phenergan with Codeine) 5 ml Q6H PRN ORAL cough 11/20/18 21:00 12/20/18 20:59 11/22/18 04:21 Temazepam (Restoril) 15 mg HSPRN PRN ORAL Insomnia 11/20/18 21:00 11/27/18 20:59 Theophylline (Abelardo-Dur) 100 mg EVERY 12 HOURS ORAL 11/20/18 21:00 12/20/18 20:59 11/27/18 07:59 Nereida Alcocer M.D. Nov 27, 2018 13:56
--- NOTE | 2018-11-27 14:04 | NUR ---
NURSE NOTES: pt left in stable condition with daughter, pt prefers to go to his own pharmacy, original rx given to pt, copy in the chart
--- NOTE | 2018-11-28 14:17 | Discharge Summary ---
Discharge Summary Discharge Summary _ DATE OF ADMISSION: 11/20/2018 DATE OF DISCHARGE: 11/27/2018 DISCHARGED BY: Dr. Sukhjinder Bullock CONSULTANTS: Dr. Nereida Zhang [facility] COURSE: Patient is a 63-year-old gentleman, with past medical history significant for COPD with chronic smoking, who presented to the emergency room with complaints of sudden shortness of breath. Patient developed acute shortness of breath over the last couple of days which has been progressively worsening especially after walking up flight of stairs. He noted mild chest discomfort. He denied any fever or chills. Denied any nausea or vomiting. On evaluation at the ED, patient presented with severe shortness of breath. He was given albuterol and Atrovent treatment with significant improvement of symptoms. He was given Solu-Medrol. Chest x-ray showed evidence of pneumothorax, however pneumothorax appeared to be left-sided and more towards the diaphragm. There is also a suspected mass. Pneumothorax did not show any evidence of tension pneumothorax. Repeat chest x-ray done a few hours later showed stable pneumothorax. He was then admitted for further workup. Cotton Washer was consulted. Patient was given respiratory treatment. He was started on short course of antibiotic. CT chest was ordered. Surgeon was soft consulted for evaluation of pneumothorax. Patient was clinically stable without distress. Hold off on chest tube placement. Repeat imaging showed an enlarging pneumothorax. Decision was made and a left chest tube was inserted at bedside. He tolerated procedure well. Chest tube was placed to suction. Surveillance chest x-ray showed improvement in pneumothorax. Patient was less short of breath. ID was consulted. Patient was given Zosyn. Leukocytosis noted, however patient on high-dose steroids. Chest CT showed a 3.5 cm mass in the left lower lobe, likely bronchogenic neoplasm. Cardiothoracic evaluation was done. CT-guided biopsy was recommended , however, patient refused. Sputum culture showed Josephine and usual upper respiratory yeison. Blood culture did not isolate any growth. Zosyn was discontinued. Patient was given ceftriaxone for presumed pneumonia. Patient was breathing better. Chest tube was removed. Chest x-ray post chest tube removal showed no pneumothorax. Patient was discharged home on oral theophylline and albuterol. Patient would like have some time to think over needed biopsy over the next few weeks. He was discharged home. FINAL DIAGNOSES: Acute respiratory failure secondary to acute left-sided pneumothorax Acute left pneumothorax Status post left chest tube thoracostomy 3.5 cm mass in the left lower lobe, ikely bronchogenic neoplasm COPD Probable pneumonia Chronic smoker with emphysema Mild distended esophagus Microhematuria DISPOSITION: Patient was discharged home. DISCHARGE MEDICATIONS: Refer to Discharge Medication List. DISCHARGE INSTRUCTIONS: Follow-up in a week. I have been assigned to dictate discharge summary on this account, and I was not involved in the patient's management. Patricia Meek NP Nov 28, 2018 14:17
== END 2018-11-27 13:53 | disposition home or self-care (01) | DRG 143 ==
LOC: EDBD 16:45 → EDBEDREQ 17:06 → EMR 17:59 → 2E 18:09 → EDBEDREQ 19:08
PROC: 0W9B30Z Drainage of Left Pleural Cavity with Drainage Device, Percutaneous Approach (ICD-10-PCS; principal; 2018-11-22)
DX: J93.9 Pneumothorax, unspecified (principal); J96.00 Acute respiratory failure, unspecified whether with hypoxia or hypercapnia; J18.9 Pneumonia, unspecified organism; J44.0 Chronic obstructive pulmonary disease with (acute) lower respiratory infection; F17.210 Nicotine dependence, cigarettes, uncomplicated; R31.9 Hematuria, unspecified; K22.8 Other specified diseases of esophagus; D49.1 Neoplasm of unspecified behavior of respiratory system; Z53.29 Procedure and treatment not carried out because of patient's decision for other reasons
CPT/HCPCS: 36415; 71045; 71046; 71260; 80048; 80053; 81003; 82378; 83735; 83880; 84100; 84484; 85007; 85025; 85060; 85610; 85730; 87040; 87070; 87205; 93005; 94640; 94664; 94760; 96361; 96374; 99291; J2405; J7620

== ENCOUNTER 2019-12-20 | Inpatient (IN) | payer OTHER ==
[~2019-12-20] VITALS: Ht 172.7 cm; Wt 63.5 kg
[~2019-12-20] MED LIST: ALBUTEROL SULF8.5 GM INH; THEOPHYLLINE A100 MG ORAL
[2019-12-20] MEDS ORDERED: Solu-MEDROL 125mg Inj IVP ONE (00:15)
[2019-12-20] MEDS ORDERED: Sodium Chloride 1,900 ML IVLG ONE (00:15)
[2019-12-20] MEDS ORDERED: Morphine Sulfate 4mg/ml Inj (IV USE ONLY) IVP ONE ×2 (00:15→04:45)
[2019-12-20] MEDS ORDERED: Albuterol ud Inhalation HHN ONE (00:15)
[2019-12-20] MEDS ORDERED: Ipratropium 0.02% Inh Soln 2.5ml UD HHN ONE (00:15)
--- NOTE | 2019-12-20 00:15 | NUR ---
ED Nurse Note: PT BIBA C/O [place] AND NECK PAIN X2WKS. PT DENIES TRAUMA. PT STATES COUGH [id number]. PT STATES TAKING EXEDRIN Q4H, PT HR AT 138, NAD, ERMD AT BEDSIDE. WILL CONTINUE TO MONITOR PATIENT.
--- NOTE | 2019-12-20 00:16 | Emergency Room Report ---
History of Present Illness General Chief Complaint: Headache Source: Patient Present Illness HPI Is a 64-year-old male with history of COPD. He was admitted here last year for pneumothorax noted to have a lung mass that is most likely neoplasm. Patient sent that he has not cancer. He presents with chief complaint of headache. He been having this problem for 2 weeks now. Pain is to the back of his head rating to his neck. Throbbing and sharp in nature. Is getting worse and worse to do so I called 911 tonight. He denies any fever but has chills and sweating. No relief with Excedrin. Has nausea and vomiting. No diarrhea. Also felt short of breath. He said he quit smoking last week. Denies any trauma. Nothing made it better. Nothing made it worse. Pain is 9 out of 10. Allergies: Coded Allergies: No Known Allergies (Unverified , 11/20/18) Patient History Past Medical History: see triage record, old chart reviewed Past Surgical History: other Pertinent Family History: none Social History: Reports: smoking Immunizations: other Reviewed Nursing Documentation: PMH: Agreed; PSxH: Agreed Nursing Documentation-PMH Hx Cardiac Problems: Yes Hx Hypertension: Yes Hx Asthma: Yes - collapsed lung Hx COPD: Yes Hx Neurological Problems: No Review of Systems Constitutional: Reports: chills Eye: Denies: eye pain, blurred vision ENT: Denies: ear pain, nose congestion, throat swelling Respiratory: Reports: cough; Denies: shortness of breath Cardiovascular: Denies: chest pain, palpitations Gastrointestinal: Denies: abdominal pain, diarrhea, nausea, vomiting Musculoskeletal: Denies: back pain, joint pain Skin: Denies: rash Neurological: Reports: headache; Denies: numbness Endocrine: Denies: increased thirst, increased urine Hematologic/Lymphatic: Denies: easy bruising All Other Systems: negative except mentioned in HPI Physical Exam Vital Signs Date Time Temp Pulse Resp B/P (MAP) Pulse Ox O2 Delivery O2 Flow Rate FiO2 12/20/19 00:03 97.5 140 18 149/84 (105) 96 Room Air Vitals with tachycardia Sp02 EP Interpretation: reviewed, normal General Appearance: alert, mild distress, thin Head: normocephalic, atraumatic Eyes: bilateral eye PERRL, bilateral eye EOMI ENT: hearing grossly normal, normal pharynx Neck: full range of motion, supple, no meningismus Respiratory: chest non-tender, respiratory distress - Pursed lip breathing, decreased breath sounds, accessory muscle use, wheezing Cardiovascular #1: regular rate, rhythm, no murmur, tachycardia Gastrointestinal: normal bowel sounds, non tender, no mass, no organomegaly, no bruit, non-distended Musculoskeletal: back normal, normal range of motion, gait/station normal Psychiatric: mood/affect normal Medical Decision Making Diagnostic Impression: Primary Impression: Headache Qualified Codes: R51 - Headache Additional Impressions: Acute respiratory failure Qualified Codes: J96.00 - Acute respiratory failure, unspecified whether with hypoxia or hypercapnia COPD exacerbation Hypertension Qualified Codes: I10 - Essential (primary) hypertension Rhabdomyolysis Qualified Codes: M62.82 - Rhabdomyolysis ER Course Patient presents with headache and neck pain. He also noted to be tachycardic and wheezing and actively breathing. Is headache is unremarkable. No evidence of any bleed or neoplastic process. No evidence of any meningitis. Blood pressure was elevated. He responded to IV antihypertensive medication. He appeared to be anxious also. His heart rate improved after gave him Ativan. Breathing treatment improved and wheezing resolved. He still little dyspneic. CT scan is negative for infiltrate. His mass that was seen on previous admission is improving. He said he felt better but still feels short of breath. Will admit for further treatment, steroid and IV fluid. Pt will be admitted here. He said that his primary care doctor is Dr. Bhakta and his IPA also listed Dr. Bhakta as admitting doctor. I contacted him for admission. EKG Diagnostic Results Rate: tachycardiac Rhythm: NSR ST Segments: no acute changes Rhythm Strip Diag. Results EP Interpretation: yes Rate: 120 Rhythm: NSR, no PVC's, no ectopy Chest X-Ray Diagnostic Results Chest X-Ray Diagnostic Results : Chest X-Ray Ordered: Yes # of Views/Limited/Complete: 1 View Indication: Shortness of Breath EP Interpretation: Yes Interpretation: no consolidation, no effusion, no pneumothorax, other - hyperinflation Impression: Other - copd Electronically Signed by: Jered Mata MD CT/MRI/US Diagnostic Results CT/MRI/US Diagnostic Results #1: Imaging Test Ordered: CT head Impression Negative per radiologist CT/MRI/US Diagnostic Results #2: Imaging Test Ordered: CT chest Impression Read by radiologist. No pulmonary embolus. Finding consistent with overall positive treatment response with decrease in size of multiple pulmonary nodule development of a left mediastinal mass. Last Vital Signs Date Time Temp Pulse Resp B/P (MAP) Pulse Ox O2 Delivery O2 Flow Rate FiO2 12/20/19 00:03 97.5 140 18 149/84 (105) 96 Room Air Status: improved Disposition: ADMITTED INPATIENT Condition: Serious Jered Mata MD Dec 20, 2019 00:16
--- NOTE | 2019-12-20 00:52 | NUR ---
ED Nurse Note: PATIENT PLACED ON 2L NC PER ERMD ORDER
[2019-12-20 00:59] LABS: HEMOGLOBIN 15.9 G/DL (14.2-18.0); MEAN CORPUSCULAR VOLUME 98 FL (80-99); PLATELET COUNT 494 K/UL (150-450); RED BLOOD COUNT 4.48 M/UL (4.70-6.10); RED CELL DISTRIBUTION WIDTH 11.2 % (11.6-14.8); WHITE BLOOD COUNT 16.4 K/UL (4.8-10.8)
--- NOTE | 2019-12-20 01:05 | NUR ---
ED Nurse Note: PT WENT FOR CT ACCOMPANIED BY VENEER STOCK LAYER VIA WHEELCHAIR IN STABLE CONDITION
[2019-12-20 01:18] LABS: ANION GAP 18 mmol/L (5-15); BLOOD UREA NITROGEN 15 mg/dL (7-18); CARBON DIOXIDE 22 MMOL/L (21-32); CHLORIDE 100 MMOL/L (98-107); POTASSIUM 3.6 MMOL/L (3.5-5.1); SODIUM 139 MMOL/L (136-145)
--- NOTE | 2019-12-20 01:26 | Diagnostic Imaging Report ---
EXAM: CT Head Without Intravenous Contrast CLINICAL HISTORY: PAIN TECHNIQUE: Axial computed tomography images of the head/brain without intravenous contrast. CTDI is 63 mGy and DLP is 1458 mGy-cm. One or more of the following dose reduction techniques were used: automated exposure control, adjustment of the mA and/or kV according to patient size, use of iterative reconstruction technique. COMPARISON: No relevant prior studies available. FINDINGS: Brain: Unremarkable. No hemorrhage. No significant white matter disease. No edema. Ventricles: Unremarkable. No ventriculomegaly. Bones/joints: Unremarkable. No acute fracture. Soft tissues: Unremarkable. Vasculature: Minimal cerebrovascular atherosclerosis. Sinuses: Unremarkable as visualized. No acute sinusitis. Mastoid air cells: Unremarkable as visualized. No mastoid effusion. IMPRESSION: 1. No acute intracranial abnormality 2. Unremarkable for age unenhanced CT head.
[2019-12-20 01:34] LABS: ALANINE AMINOTRANSFERASE 20 U/L (12-78); ALBUMIN 4.4 G/DL (3.4-5.0); ALKALINE PHOSPHATASE 86 U/L (46-116); ASPARTATE AMINO TRANSFERASE 38 U/L (15-37); BILIRUBIN,TOTAL 0.2 MG/DL (0.2-1.0); CKMB 3.2 NG/ML (0.0-3.6); CREATINE KINASE 3984 U/L (26-308)
--- NOTE | 2019-12-20 01:35 | NUR ---
ED Nurse Note: PT IS REFUSING ZOFRAN, STATING HE DOES NOT HAVE NAUSEA ANYMORE. ERMD AWARE. WILL CONTINUE TO MONITOR PATIENT
--- NOTE | 2019-12-20 01:48 | NUR ---
ED Nurse Note: PT BP 187/104. ERMD NOTIFIED. WILL CARRY OUT ORDER
[2019-12-20 02:02] LABS: BILIRUBIN, URINE NEGATIVE (NEGATIVE); COLOR,URINE YELLOW; GLUCOSE, URINE (UA) NEGATIVE (NEGATIVE); KETONES,URINE 3+ (NEGATIVE); LEUKOCYTE ESTERASE ,URINE NEGATIVE (NEGATIVE); NITRITE,URINE NEGATIVE (NEGATIVE); PH,URINE 5 (4.5-8.0); PROTEIN,URINE 3+ (NEGATIVE); UROBILINOGEN,URINE NORMAL MG/DL (0.0-1.0)
[2019-12-20 02:03] LABS: APPEARANCE,URINE SLIGHTLY CLOUDY
[2019-12-20] MEDS ORDERED: Labetalol 5mg/ml 20ml vial IV ONE (02:15)
[2019-12-20] MEDS ORDERED: Omnipaque 350 100ml vial INJ PRN (02:15)
[2019-12-20] MEDS ORDERED: Azithromycin 500 MG in NS 275 ML IV ONE (02:30)
[2019-12-20] MEDS ORDERED: cefTRIAXone 1 GM in NS 55 ML IVPB ONE (02:30)
[2019-12-20] MEDS ORDERED: LORazepam Inj 2mg/ml 1ml IV ONE (02:45)
--- NOTE | 2019-12-20 02:53 | NUR ---
ED Nurse Note: pt went for ct via wheelchair accompanied by radar tester in stable condition.
--- NOTE | 2019-12-20 03:10 | NUR ---
ED Nurse Note: PT BACK FROM CT VIA WHEELCHAIR ACCOMPANIED BY DIABETES TERRITORY MANAGER IN STABLE CONDITION
[2019-12-20] MEDS ORDERED: Azithromycin 500mg Inj IV ONE (03:22)
--- NOTE | 2019-12-20 03:41 | Diagnostic Imaging Report ---
EXAM: XR Chest, 1 View CLINICAL HISTORY: SOB TECHNIQUE: Frontal view of the chest. COMPARISON: November 27, 2018 chest x-ray FINDINGS: Lungs: Biapical pleural-parenchymal scarring is redemonstrated. The lungs are hyperlucent. A pulmonary nodule in the left midlung. Pleural space: No pneumothorax or pleural effusion. Heart: Unremarkable. No cardiomegaly. Mediastinum: Unremarkable. Bones/joints: Unremarkable. IMPRESSION: Lung hyperlucency consistent with chronic lung disease. No superimposed acute cardiopulmonary process.
[2019-12-20 03:42] VITALS: BP 148/86
--- NOTE | 2019-12-20 03:45 | Diagnostic Imaging Report ---
EXAM: CT Angiography Chest With Intravenous Contrast CLINICAL HISTORY: SOB TECHNIQUE: Axial computed tomographic angiography images of the chest with intravenous contrast. CTDI is 11.1 mGy and DLP is 498.9 mGy-cm. One or more of the following dose reduction techniques were used: automated exposure control, adjustment of the mA and/or kV according to patient size, use of iterative reconstruction technique. MIP reconstructed images were created and reviewed. COMPARISON: Chest x-ray earlier the same day, CT chest with contrast November 21, 2018. FINDINGS: Pulmonary arteries: Unremarkable. No pulmonary embolism. Aorta: No acute findings. No thoracic aortic aneurysm. Lungs: Biapical pleural-parenchymal scarring. Emphysema. Interval decrease in size of multiple pulmonary nodules. A new, 3.2 cm left infrahilar posterior mediastinal mass has developed and it narrows and possibly occludes the left inferior pulmonary vein. Pleural space: No pneumothorax or pleural effusion. Heart: Unremarkable. No cardiomegaly. No significant pericardial effusion. No evidence of RV dysfunction. Bones/joints: No acute fracture. No dislocation. Soft tissues: Unremarkable. Lymph nodes: Unremarkable. No enlarged lymph nodes. IMPRESSION: 1. No pulmonary emboli 2. Findings consistent with an overall positive treatment response with decrease in size of multiple pulmonary nodules with development of a left mediastinal/infrahilar mass that narrows the left inferior pulmonary vein. <MYCVCSECTION> Communications: 12/20/19 03:53 Verify Receipt Verified receipt with Ana in ER given to Dr. Mata on 12/20 03:53 (-08:00)
[2019-12-20 04:27] VITALS: BP 152/79
--- NOTE | 2019-12-20 04:28 | NUR ---
ED Nurse Note: patient is calm and resting in bed. vss, nad. will continue to monitor patient.
--- NOTE | 2019-12-20 04:44 | NUR ---
ED Nurse Note: PT C/P NECK PAIN 04/20. ERMD NOTIFIED. WILL CARRY OUT ORDER
[2019-12-20] MEDS ORDERED: Morphine Sulfate 4mg/ml Inj (IV USE ONLY) IVP PRN (05:45)
[2019-12-20 06:02] VITALS: BP 143/74
[2019-12-20] MEDS ORDERED: Albuterol ud Inhalation HHN SCH (07:00)
--- NOTE | 2019-12-20 07:08 | NUR ---
ED Nurse Note: gave report to Ariana AMES.
--- NOTE | 2019-12-20 07:32 | NUR ---
ED Nurse Note: IV 20g left AC noted, inserted by prevsious shift. No redness, swelling or pain reported.
--- NOTE | 2019-12-20 07:39 | History & Physical ---
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 Admitted with Hypertensive urgency , headache, COPD exacerbation with increased shortness of breath. Pain is to the back of his head rating to his neck. Throbbing and sharp in nature. He denies any fever but has chills and sweating in addition to nausea and vomiting. No diarrhea. He said he stopped smoking last week. Denies any trauma. Allergies: No Known Allergies Past Medical History: Chronic Obstructive Disease, Multiple PulmonaryNodules, Lung Mass, Pneumothorax, Hypertension, Hypertensive Heart Disease Social History: Smoking Family History: none All Other Systems: 10 point review of systems negative except mentioned in HPI Physical Exam Vital Signs Noted Date Time Temp Pulse Resp B/P (MAP) Pulse Ox O2 Delivery O2 Flow Rate FiO2 12/20/19 00:03 97.5 140 18 149/84 (105) 96 Room Air General Appearance: alert, mild distress, thin Head: normocephalic, atraumatic Eyes: bilateral eye PERRL, bilateral eye EOMI ENT: hearing grossly normal, normal pharynx Neck: full range of motion, supple, no meningismus Respiratory: chest non-tender, respiratory distress - Pursed lip breathing, decreased breath sounds, accessory muscle use, wheezing Cardiovascular: regular rate, rhythm, HS1, HS2 normal, no murmur, tachycardia Gastrointestinal: normal bowel sounds, non tender, no mass, no organomegaly, no bruit, non-distended Musculoskeletal: back normal, normal range of motion, gait/station normal Psychiatric: mood/affect normal Impression: Headache Hypertensive Urgency COPD exacerbation Multiple Pulmonary Nodules Left Infrahilar mass Acute respiratory failure Rhabdomyolysis Plan - Continue IV Antibiotics - IV Solumedrol - Anti Hypertensives - Oxygen PRN - HHN - Obtain Medical Records on Outpatient management of Pulmonary Mass - will need biopsy if not previously done - PPX - Monitor labs - INSULATION BLANKET [employer]ER Medications - Analgesia EKG: Rate: tachycardiac Rhythm: NSR ST Segments: no acute changes Chest X-Ray: no consolidation, no effusion, no pneumothorax, other - hyperinflation CT Head: Negative per radiologist CTA Chest: No pulmonary embolus. Finding consistent with overall positive treatment response with decrease in size of multiple pulmonary nodule development of a left mediastinal mass. Maldonado Pineda MD Dec 20, 2019 07:39
[2019-12-20] MEDS ORDERED: EXCEDRIN EXTRA1 EAC1 PO (07:41)
[2019-12-20] MEDS ORDERED: ASPIRIN81 MG ORAL (07:41)
--- NOTE | 2019-12-20 08:16 | NUR ---
report given to jovanny ku patient is to be transferd to room 320-2 via [facility]
--- NOTE | 2019-12-20 08:30 | NUR ---
NURSE NOTES: Patient arrived on unit via gurney. Stable. Breathing is even and unlabored. No SOB at this time. No visible signs of distress noted. Patient oriented to room, call light, and unit. Patient instructed to use call light for assistance, verbalized understanding. Skin is c/d/i, circular discolorations noted on back d/t "cupping". Patient denies pain. Patient is in bed in locked and lowest position with call light within reach. All needs met at this time. Will continue to monitor.
--- NOTE | 2019-12-20 08:50 | NUR ---
NURSE NOTES: Paged Dr. Bhakta for admission orders, awaiting response.
[2019-12-20] MEDS ORDERED: Albuterol/Ipratropium 3ml neb HHN PRN (09:30)
[2019-12-20] MEDS ORDERED: DiphenhydrAMINE 50mg/ml Inj IVP PRN (09:30)
[2019-12-20] MEDS ORDERED: Hydromorphone 0.5mg/0.5ml inj IVP PRN (09:30)
[2019-12-20] MEDS ORDERED: HYDROcodone/Acetamin 5/325 tab ORAL PRN (09:30)
[2019-12-20] MEDS ORDERED: HydrALAZINE 25mg tab ORAL PRN (09:30)
[2019-12-20 12:00] VITALS: BP 128/84
[2019-12-20] MEDS: Solu-MEDROL 40mg Inj IVP SCH ×2 (13:04→21:15)
--- NOTE | 2019-12-20 13:29 | NUR ---
NURSE NOTES: Patient has poor understanding of plan of care and medical condition. RN tried to reinforce teaching but is unsuccessful. Patient asked for Voltaren gel, RN asked Dr. Pineda for Voltaren gel order, Dr. Pineda did not agree on Voltaren gel. Patient is irritable, will reinforce teaching as needed.
[2019-12-20 16:00] VITALS: BP 133/77
--- NOTE | 2019-12-20 19:10 | NUR ---
NURSE NOTES: Received report from HUI Chavez. Pt is awake, lying semi saravia's; comfortably resting. No signs of acute distress noted. Pt denies any pain at this time. AOx4; able to make needs known. Checked IV site, line and rate; patent and running. No erythema, bleeding, or infiltration noted. Bed at lowest position. Brakes on. Siderails up x2. Will continue to monitor.
--- NOTE | 2019-12-20 19:22 | NUR ---
HAND-OFF: Report given to Bessy AMES. Patient is stable.
[2019-12-20 20:00] VITALS: BP 161/97
[2019-12-21] VITALS: BP 165/93
[2019-12-21 03:55] VITALS: BP 158/97
[2019-12-21] MEDS: Solu-MEDROL 40mg Inj IVP SCH (05:06)
[2019-12-21] MEDS ORDERED: cefTRIAXone 1 GM in D5W 55 ML IVPB SCH (06:00)
[2019-12-21] MEDS ORDERED: Azithromycin 500 MG in D5W 275 ML IV SCH (07:00)
--- NOTE | 2019-12-21 07:11 | NUR ---
HAND-OFF: Report given to HUI Chavez. Pt is awake and in stable condition. Plan of care endorsed.
--- NOTE | 2019-12-21 07:30 | NUR ---
NURSE NOTES: Patient is in bed sitting upright awake and able to verbalize needs. Stable. Denies pain or SOB. Patient is irritable and does not understand plan of care. Patient is in bed in locked and lowest position with call light within reach. All needs met at this time. Will continue to monitor.
[2019-12-21 08:00] VITALS: BP 145/104
--- NOTE | 2019-12-21 08:36 | General Progress Note ---
Assessment/Plan Assessment/Plan: Headache Hypertensive Urgency COPD exacerbation Multiple Pulmonary Nodules Left Infrahilar mass Acute respiratory failure Rhabdomyolysis PLAN IV fluids recheck CK and labs respiratory dc once stable with outpatient followup impression, plan, and exam edited and reviewed in detail care discussed with RN Subjective Allergies: Coded Allergies: No Known Allergies (Unverified , 11/20/18) Subjective care noted CT overall improved Objective Last 24 Hour Vital Signs Date Time Temp Pulse Resp B/P (MAP) Pulse Ox O2 Delivery O2 Flow Rate FiO2 12/21/19 03:55 97.8 98 20 158/97 (117) 95 12/21/19 00:00 97.6 112 18 165/93 (117) 95 12/20/19 21:59 161/97 12/20/19 21:00 Room Air 12/20/19 21:00 112 20 97 Room Air 21 12/20/19 20:00 97.8 113 20 161/97 (118) 95 12/20/19 16:00 97.5 124 20 133/77 (95) 94 12/20/19 12:00 97.6 109 18 128/84 (99) 95 12/20/19 10:06 111 139/79 12/20/19 09:00 Room Air 12/20/19 08:47 Room Air Intake and Output 12/20/19 12/21/19 19:00 07:00 Intake Total 450 ml Balance 450 ml IV Total 450 ml Height (Feet): 5 Height (Inches): 8.00 Weight (Pounds): 140 Objective WDWN NAD clear breath sounds bilaterally without rhonchi or wheeze [id number] without MRG NABS nontender no HSM no CCE nonfocal Parish Bhakta MD Dec 21, 2019 08:36
[2019-12-21 09:22] LABS: HEMATOCRIT 41.6 % (42.0-52.0); HEMOGLOBIN 14.1 G/DL (14.2-18.0); MEAN CORPUSCULAR VOLUME 101 FL (80-99); PLATELET COUNT 443 K/UL (150-450); RED BLOOD COUNT 4.12 M/UL (4.70-6.10); RED CELL DISTRIBUTION WIDTH 11.8 % (11.6-14.8); WHITE BLOOD COUNT 19.1 K/UL (4.8-10.8)
[2019-12-21 10:04] LABS: CREATINE KINASE 1721 U/L (26-308)
--- NOTE | 2019-12-21 11:00 | NUR ---
NURSE NOTES: Patient made aware of completion of IV fluid order. Patient is upset and is angrily telling RN that he needs the IV fluids. RN gave patient teaching but patient does not agree and continues to be upset with RN. Patient has poor understanding about medical condition even though RN reinforces teaching throughout shift. Patient does not agree with plan of care. Will continue to monitor.
[2019-12-21 12:00] VITALS: BP 180/95
--- NOTE | 2019-12-21 13:00 | NUR ---
NURSE NOTES: Patient is yelling at RN about wanting to go home. RN is fluent in tam[employer] but used [employer] to further address concerns with [place] high rigger Tammy #[id number]. RN reminded patient about doctor's orders for plan of care while patient is here. Patient does not agree with plan of care and disagrees with doctor's diagnosis. Patient was given patient teaching by RN regarding plan of care and goals that were made based upon the doctor's orders. Patient continues to be upset and is yelling at RN. Patient was reminded that patient has the right to speak to the doctor about any questions or concerns, patient told RN that he does not want to speak to the doctor. Patient continues to yell at nurse about wanting to go home. Patient acknowledged to RN that he is leaving against medical advice and understands risks and benefits. RN will prepare documents.
--- NOTE | 2019-12-21 13:20 | NUR ---
NURSE NOTES: Patient is leaving hospital AMA. Patient is upset and yelling at RN. Patient approached other nurses at nurses station and yelled about wanting to leave. Patient is reassured that he is not being forced to stay at hospital but is unable to be redirected. Patient does not agree with plan of care. Patient is aggressive and won't allow RN to address any concerns or questions. Electronics Specialist made aware of situation and security is aware of patient's behavior. No further intervention needed at this time. Patient called next of kin, daughter Izabela to drive him home. Daughter Izabela arrived on unit and spoke to RN regarding patient's wishes to go home. Patient taken home by daughter Izabela. Patient has no IV access. Patient has all belongings except home medication that he refused to take home.
[2019-12-21 13:25] VITALS: BP 180/95
--- NOTE | 2019-12-21 14:47 | NUR ---
NURSE NOTES: Dr. Bhakta aware of patient's leaving AMA.
--- NOTE | 2019-12-21 17:26 | NUR ---
CASE MANAGEMENT: INITIAL REVIEW 64YR OLD MALE BIBA FORM HOME CC: HEADACHE AND NECK PAIN 2 WKS SI: HEADACHE . ACUTE RESP FAILURE . RHAABDO . COPD EXACERBATION . HTN 97.5 140 18 149/84 96% ON RA WBC 16.4 PLT 494 ANION GAP 18 BG 125 AST 38 TCK 3984 T.PRO 8.6 IS:IVF NS BOLUS X3 IV ZITHROMAX X1 IV ROCEPHIN X1 IV MORPHINE SULFATE X2 IV SOLU-MEDROL ATROVENT HHN X1 PROVENTIL HHN X1 IV ZOFRAN X1 IV HYDRALAZINE X1 IV NORMODYNE X[address] X[address] HEAD CHEST X-RAY - CHRONIC LUNG DISEASE CTA CHEST \: 3E MED SURG UNIT Addendum: 12/22/19 at 1347 by BERNADETTE GO LVN INTERQUAL MET
[2019-12-22] MEDS ORDERED: Solu-MEDROL 40mg Inj IVP SCH (09:00)
--- NOTE | 2019-12-24 08:51 | Discharge Summary ---
Discharge Summary Discharge Summary _ DATE OF ADMISSION: 12/20/2019 DATE OF DISCHARGE: 12/21/2019 Patient left AGAINST MEDICAL ADVICE REASON FOR ADMISSION: 64 years old male with past medical history of COPD ,admitted last year for pneumothorax and noted to have a lung mass most likely neoplasm, treated as outpatient, presented with a headache for 2 weeks. Headache was located at the back of the head . Pain reported to be throbbing and sharp. Pain was getting progressively worse , and patient called paramedics. No fevers, but reported chest chills and sweats No relief with Excedrin Patient also reported nausea and vomiting, but no diarrhea. He felt short of breath. He quit smoking about a week ago. Upon evaluation patient was tachycardic with heart rate of 140. Blood pressure was 187/107. Pulse oximetry was 96% on room air. Initially laboratory work-up revealed leukocytosis WBC 16.4, stable hemoglobin and hematocrit. Stable electrolytes and renal parameters, glucose 125. Lactic acid 2.3, repeated 2.6. Troponin 0.004. EKG revealed sinus tachycardia with nonspecific ST-T wave abnormalities. Total CK 3984. Urinalysis revealed +3 protein, +3 ketones, no evidence of UTI. Urine toxicology screen was negative. CT of the head demonstrated no acute intracranial abnormalities. Chest x-ray revealed lung hyperlucency consistent with chronic lung disease. No superimposed acute cardiopulmonary process noted. CTA of the chest and thorax revealed no pulmonary emboli. Finding consistent with overall positive treatment response with decrease in size of multiply pulmonary nodules, development of a left mediastinal and infrahilar mass that narrows the left inferior pulmonary vein. Patient subsequently admitted for further management HOSPITAL COURSE: Patient admitted and started on the IV fluids and empiric antibiotics. Patient started on IV Solu-Medrol . Supplemental oxygen provided and titrated to keep pulse oximetry above 92%. Nebulizing treatment with bronchodilator provided. Plan to obtain medical records from the outpatient management of the pulmonary mass. DVT and GI prophylaxis provided. Home medication continued. Pain management was addressed. Antihypertensive medication regimen was optimized. Patient was on calcium channel aristeo and clonidine. Hydralazine was added for blood pressure spikes. At the time of this dictation blood culture came back negative. CK trended down to 1721 from initial 3984. On 12/21 patient decided to leave AGAINST MEDICAL ADVICE. Pulse oximetry was stable on room air. Blood pressure stabilized. The risks and consequences of signing AGAINST MEDICAL ADVICE were discussed with patient in detail. Patient verbalized understanding, nevertheless signed AMA form and left. Patient left accompanied by his daughter. FINAL DIAGNOSES: Hypertensive urgency Headache, likely due to HTN urgency COPD exacerbation Left infrahilar mass Multiple pulmonary nodules Rhabdomyolysis I have been assigned to dictate discharge summary for this account. I was not involved in the patient's management. Sharda Lepe NP Dec 24, 2019 08:51
== END 2019-12-21 13:20 | disposition left against medical advice (07) | DRG 140 ==
LOC: EDUNIT# → EDBD → EMR 00:44 → EDBEDREQ 05:53 → 3E 07:29
DX: J44.1 Chronic obstructive pulmonary disease with (acute) exacerbation (principal); J96.00 Acute respiratory failure, unspecified whether with hypoxia or hypercapnia; M62.82 Rhabdomyolysis; I16.0 Hypertensive urgency; I11.9 Hypertensive heart disease without heart failure; R91.8 Other nonspecific abnormal finding of lung field
CPT/HCPCS: 36415; 70450; 71045; 71275; 80053; 80307; 81003; 82550; 82553; 83605; 84484; 85007; 85025; 87040; 93005; 94664; 96361; 96365; 96368; 96375; 99285; J2405; J7030; J7620